=== PATIENT | male | born 1990 | race Caucasian/White ===

== ENCOUNTER 2020-09-15 06:17 | Emergency (ER) | payer OTHER, SELFPAY ==
[2020-09-15] VITALS (10 sets, daily range): BP systolic 145–167; BP diastolic 96–111; PULSE 51–89; RESP 19–37; TEMP 36.7; O2SAT 96–99
--- NOTE | 2020-09-15 06:38 | DI.RAD.S_ITS ---
PROCEDURE: XR CHEST 1V INDICATIONS: Chest pain; COVID positive TECHNIQUE: One view of the chest was acquired. COMPARISON: None. FINDINGS: Surgical changes and devices: None. Lungs and pleura: Right lung base nodular ground glass opacity. Lungs are otherwise clear. No pleural effusions or pneumothorax. Mediastinum: Mediastinal contours appear normal. Heart size is normal. Bones and chest wall: No suspicious bony lesions. Overlying soft tissues appear unremarkable. IMPRESSION: Focus of nodular groundglass opacity in the right lung base, nonspecific. This could represent developing consolidation due to viral or bacterial infection, although there are numerous other differential considerations. CTA chest is pending. Dictated by: Maciel Salinas M.D. on 09/15/2020 at 8:12 Approved by: Maciel Salinas M.D. on 09/15/2020 at 8:15
--- NOTE | 2020-09-15 06:43 | ED_ITS ---
HPI - Chest Pain <Gorge Cunningham MD - Last Filed: 09/23/20 11:00> General Chief Complaint: Chest Pain Stated Complaint: chest pain Time Seen by Provider: 09/15/20 06:27 Source: patient Mode of arrival: Wheelchair History of Present Illness HPI narrative: Patient here for complaints of chest pain starting 2:00 a.m. this morning. 4-1/2 hours ago. Has had dyspnea nausea and vomiting as well. Patient works at [employer] in [place]. Did test positive for COVID September 09. No cough cold or congestion or fever chills. No family history of coronary disease. Patient states does drink alcohol daily. Complains of substernal chest pain that does not radiate. Cannot find comfortable position. Skin is clammy. Patient awake alert responsive. He denies any illicit drug use. No allergies to medicines. Patient states only thing that is helping earlier this morning was taking a cool shower or warm shower. Father drove him here. Related Data Previous Rx's Medication Instructions Recorded trazodone 100 mg tablet 100 mg PO BEDTIME PRN #90 tab 08/05/20 gabapentin 400 mg capsule 400 mg PO TID PRN #180 cap 08/27/20 escitalopram oxalate 10 mg tablet 20 mg PO DAILY 30 Days #60 tab 09/10/20 hydroxyzine pamoate 50 mg capsule 50 mg PO TID PRN 30 Days #90 cap 09/10/20 lamotrigine 150 mg tablet 300 mg PO DAILY 30 Days #60 tab 09/10/20 lithium carbonate 300 mg capsule 300 mg PO BEDTIME 30 Days #30 cap 09/10/20 hydrocodone-acetaminophen [[place]] 1 tab PO Q4-6H PRN #7 tab 09/15/20 promethazine 25 mg AK Q6H PRN #12 ea 09/22/20 sucralfate [Carafate] 1 g PO QACHS #28 tab 09/22/20 Allergies Allergy/AdvReac Type Severity Reaction Status Date / Time No Known Drug Allergies Allergy Verified 09/22/20 04:37 Review of Systems <Gorge Cunningham MD - Last Filed: 09/23/20 11:00> Review of Systems Narrative: GENERAL: Denies chills, fatigue, malaise, fever, complains sweats. HEENT: Denies sinus pain, ear pain, sore throat, difficulty swallowing RESPIRATORY: Denies dyspnea, cough CARDIOVASCULAR: Complains chest pain, denies palpitations, edema, GASTROINTESTINAL: Complains of nausea, vomiting, denies abdominal pain, diarrhea, constipation, melena. : Denies dysuria, frequency, hematuria MUSCULOSKELETAL: denies muscle or bony pain SKIN: Denies rash, skin lesions NEUROLOGIC: Denies weakness, headache, numbness, change in speech, confusion PSYCHIATRIC: No SI or HI or hallucinations ROS Unobtainable: All systems reviewed & are unremarkable except as noted in HPI and below Patient History <Gorge Cunningham MD - Last Filed: 09/23/20 11:00> Medical History (Updated 09/22/20 @ 06:31 by Miguelito Moreland DO) Alcohol use disorder Generalized anxiety disorder (~2005) Hip pain History of panic attacks Low back pain Major depressive disorder, recurrent episode, severe Pneumonia due to 2019 novel coronavirus Family History Father Alcoholism Mother Diabetes mellitus Social History household members: family Smoking Status: Former smoker second hand exposure: Yes alcohol intake: current substance use type: marijuana (occassionally to help sleep/ingestible) Smoking Status: Former smoker alcohol intake frequency: 0-2 drinks per day Substance Use Type: does not use Exam <Gorge Cunningham MD - Last Filed: 09/23/20 11:00> Narrative Exam Narrative: GENERAL: patient appears stated age. Well-nourished, well- developed patient, appears uncomfortable, cannot find a comfortable position, not toxic not dyspneic HEAD: Normocephalic. EYES: Pupils equal round and reactive. No scleral icterus. No injection no discharge ENT: Mucous membranes moist of the mouth NECK: Trachea midline. Non tender CARDIOVASCULAR: Regular rate and rhythm without murmurs, gallops, or rubs. Chest nontender. RESPIRATORY: Clear to auscultation. Breath sounds equal bilaterally. No wheezes, rales, or rhonchi. GASTROINTESTINAL: Abdomen soft, non-tender, nondistended. EXTREMITIES: No gross deformities. BACK: Nontender without deformity or crepitance. No flank tenderness. NEURO: AOx4. Clear speech no facial droop light touch intact to bilateral face and hands and legs. Strong equal hop sorter SKIN: Skin is warm but clammy. No track billy seen on arms or feet PSYCH: Patient very anxious but is is cooperative Initial Vital Signs Initial Vital Signs: Vital Signs Temperature 98.1 F 09/15/20 06:29 Pulse Rate 89 09/15/20 06:29 Respiratory Rate 19 09/15/20 06:29 Blood Pressure 167/111 H 09/15/20 06:29 Pulse Oximetry 98 09/15/20 06:29 <Miguelito Moreland DO - Last Filed: 09/15/20 10:49> Initial Vital Signs Initial Vital Signs: Vital Signs Temperature 98.1 F 09/15/20 06:29 Pulse Rate 89 09/15/20 06:29 Respiratory Rate 19 09/15/20 06:29 Blood Pressure 167/111 H 09/15/20 06:29 Pulse Oximetry 98 09/15/20 06:29 Course <Gorge Cunningham MD - Last Filed: 09/23/20 11:00> Course Course Narrative: Sign out doctor moreland, awaiting labs and imaging to be done. meds ordered for comfort Orders Ordered: Discontinued Medications Hydromorphone HCl (Hydromorphone 0.5 Mg Inj) 0.5 mg IV NOW ONE Stop: 09/15/20 07:26 Last Admin: 09/15/20 07:40 Dose: 0.5 mg Documented by: JW Sodium Chloride (Normal Saline 0.9%) 1,000 mls @ 150 mls/hr IV CONT NOBLE Last Admin: 09/15/20 07:46 Dose: 150 mls/hr Documented by: JW Sodium Chloride (Normal Saline 0.9%) 1,000 mls @ 1,000 mls/hr IV BOLUS ONE Stop: 09/15/20 07:38 Last Infusion: 09/15/20 07:41 Dose: 0 mls/hr Documented by: Admin: 09/15/20 06:46 Dose: 1,000 mls/hr Documented by: RYANN Ketorolac Tromethamine (Ketorolac 60 Mg/2 Ml Vial) 30 mg IV NOW ONE Stop: 09/15/20 09:53 Last Admin: 09/15/20 10:26 Dose: 30 mg Documented by: JW Lorazepam (Lorazepam 2 Mg/Ml Inj) 0.5 mg IV NOW ONE Stop: 09/15/20 06:39 Last Admin: 09/15/20 06:47 Dose: 0.5 mg Documented by: RYANN Morphine Sulfate (Morphine 4 Mg/Ml Inj) 4 mg IV NOW ONE Stop: 09/15/20 06:39 Last Admin: 09/15/20 06:47 Dose: 4 mg Documented by: RYANN Ondansetron HCl (Ondansetron 4 Mg/2 Ml Inj) 4 mg IV NOW ONE Stop: 09/15/20 06:39 Last Admin: 09/15/20 06:47 Dose: 4 mg Documented by: RYANN Ondansetron HCl (Ondansetron 4 Mg/2 Ml Inj) 4 mg IV NOW ONE Stop: 09/15/20 07:26 Last Admin: 09/15/20 07:41 Dose: 4 mg Documented by: JW Vital Signs Vital signs: Vital Signs - 8 hr 09/15/20 06:29 09/15/20 07:32 09/15/20 08:08 Temperature 98.1 F Pulse Rate 89 63 56 L Respiratory Rate 19 Blood Pressure 167/111 H Pulse Oximetry 98 97 99 09/15/20 08:30 09/15/20 08:48 09/15/20 09:00 Temperature Pulse Rate 51 L 55 L 57 L Respiratory Rate 25 H 23 Blood Pressure 151/101 H Pulse Oximetry 96 97 96 09/15/20 09:30 09/15/20 10:00 09/15/20 10:12 Temperature Pulse Rate 61 63 59 L Respiratory Rate 26 H 28 H 37 H Blood Pressure Pulse Oximetry 99 09/15/20 10:29 Temperature Pulse Rate Respiratory Rate Blood Pressure 145/96 H Pulse Oximetry <Miguelito Moreland DO - Last Filed: 09/15/20 10:49> Orders Ordered: Discontinued Medications Hydromorphone HCl (Hydromorphone 0.5 Mg Inj) 0.5 mg IV NOW ONE Stop: 09/15/20 07:26 Last Admin: 09/15/20 07:40 Dose: 0.5 mg Documented by: JW Sodium Chloride (Normal Saline 0.9%) 1,000 mls @ 150 mls/hr IV CONT NOBLE Last Admin: 09/15/20 07:46 Dose: 150 mls/hr Documented by: JW Sodium Chloride (Normal Saline 0.9%) 1,000 mls @ 1,000 mls/hr IV BOLUS ONE Stop: 09/15/20 07:38 Last Infusion: 09/15/20 07:41 Dose: 0 mls/hr Documented by: Admin: 09/15/20 06:46 Dose: 1,000 mls/hr Documented by: RYANN Ketorolac Tromethamine (Ketorolac 60 Mg/2 Ml Vial) 30 mg IV NOW ONE Stop: 09/15/20 09:53 Last Admin: 09/15/20 10:26 Dose: 30 mg Documented by: JW Lorazepam (Lorazepam 2 Mg/Ml Inj) 0.5 mg IV NOW ONE Stop: 09/15/20 06:39 Last Admin: 09/15/20 06:47 Dose: 0.5 mg Documented by: RYANN Morphine Sulfate (Morphine 4 Mg/Ml Inj) 4 mg IV NOW ONE Stop: 09/15/20 06:39 Last Admin: 09/15/20 06:47 Dose: 4 mg Documented by: RYANN Ondansetron HCl (Ondansetron 4 Mg/2 Ml Inj) 4 mg IV NOW ONE Stop: 09/15/20 06:39 Last Admin: 09/15/20 06:47 Dose: 4 mg Documented by: RYANN Ondansetron HCl (Ondansetron 4 Mg/2 Ml Inj) 4 mg IV NOW ONE Stop: 09/15/20 07:26 Last Admin: 09/15/20 07:41 Dose: 4 mg Documented by: JW Vital Signs Vital signs: Vital Signs - 8 hr 09/15/20 06:29 09/15/20 07:32 09/15/20 08:08 Temperature 98.1 F Pulse Rate 89 63 56 L Respiratory Rate 19 Blood Pressure 167/111 H Pulse Oximetry 98 97 99 09/15/20 08:30 09/15/20 08:48 09/15/20 09:00 Temperature Pulse Rate 51 L 55 L 57 L Respiratory Rate 25 H 23 Blood Pressure 151/101 H Pulse Oximetry 96 97 96 09/15/20 09:30 09/15/20 10:00 09/15/20 10:12 Temperature Pulse Rate 61 63 59 L Respiratory Rate 26 H 28 H 37 H Blood Pressure Pulse Oximetry 99 09/15/20 10:29 Temperature Pulse Rate Respiratory Rate Blood Pressure 145/96 H Pulse Oximetry MDM - Chest Pain <Gorge Cunningham MD - Last Filed: 09/23/20 11:00> Lab Data Result diagrams: 09/15/20 06:47 09/15/20 06:47 Labs: Lab Results 09/15/20 09/15/20 09/15/20 Range/Units 06:47 06:47 06:47 WBC 7.8 (4.5-11.0) X10^3/uL RBC 5.43 (4.5-5.9) X10^6/uL Hgb 16.4 (13.5-17.5) g/dL Hct 46.8 (41-53) % MCV 86.2 (80-100) fL MCH 30.2 (26-34) PG MCHC 35.0 (30-36) % RDW 12.9 (11.6-14.8) % Plt Count 264 (150-400) X10^3/uL Neut % (Auto) 58.9 (50-75) % Lymph % (Auto) 32.4 (25-40) % Craig % (Auto) 7.7 (3-14) % Eos % (Auto) 0.3 L (2-4) % Baso % (Auto) 0.7 (0-2) % Neut # (Auto) 4600 (3345-6520) /uL Lymph # (Auto) 2500 (5284-2291) /uL Craig # (Auto) 600 (0-900) /uL Eos # (Auto) 0 (0-450) /uL Baso # (Auto) 100 (0-100) /uL ESR (0-15) MM/HR PT 11.2 (10.1-12.7) SECONDS INR 1.0 (0.9-1.3) APTT 28 (26.4-36.2) SECONDS Sodium 139 (137-145) mmol/L Potassium 4.0 (3.4-5.1) mmol/L Chloride 100 (98-107) mmol/L Carbon Dioxide 30 (22-32) mmol/L BUN 15 (9-20) mg/dL Creatinine 0.71 (0.66-1.25) mg/dL Estimated GFR > 60.0 (>60) mL/min BUN/Creatinine Ratio 21.1 (6-22) Glucose 147 H (70-100) mg/dL Lactate (0.7-2.1) mmol/L Calcium 10.2 (8.4-10.2) mg/dL Total Bilirubin 0.5 (0.2-1.3) mg/dL AST 56 (17-59) IU/L ALT 31 (<50) IU/L Alkaline Phosphatase 92 (38-126) U/L Lactate Dehydrogenase (313-618) U/L Total Creatine Kinase 90 (55-170) U/L CK-MB (CK-2) TNP CK-MB (CK-2) Rel Index TNP Troponin I < 0.012 (0.01-0.034) ng/mL C-Reactive Protein (<1.0) mg/dL Total Protein 8.4 H (6.3-8.2) g/dL Albumin 5.0 (3.5-5.0) g/dL Globulin 3.4 (1.7-4.1) g/dL Albumin/Globulin Ratio 1.5 (1.0-2.8) Lipase 293 (23-300) U/L Procalcitonin (<0.5) ng/mL U Opiates 300ng/mL cut (Negative) Ur Oxycodone Screen (Negative) Urine Methadone Screen (Negative) Ur Barbiturates Screen (Negative) U Tricyclic Antidepress (Negative) Ur Phencyclidine Scrn (Negative) Ur Amphetamines Screen (Negative) U Methamphetamines Scrn (Negative) Ur MDMA Scrn (Ecstasy) (Negative) U Benzodiazepines Scrn (Negative) Urine Cocaine Screen (Negative) U Marijuana (THC) Screen (Negative) Ethyl Alcohol ( - 10) mg/dL COVID-19 PCR (Negative) 09/15/20 09/15/20 09/15/20 Range/Units 06:47 06:47 06:47 WBC (4.5-11.0) X10^3/uL RBC (4.5-5.9) X10^6/uL Hgb (13.5-17.5) g/dL Hct (41-53) % MCV (80-100) fL MCH (26-34) PG MCHC (30-36) % RDW (11.6-14.8) % Plt Count (150-400) X10^3/uL Neut % (Auto) (50-75) % Lymph % (Auto) (25-40) % Craig % (Auto) (3-14) % Eos % (Auto) (2-4) % Baso % (Auto) (0-2) % Neut # (Auto) (2313-3006) /uL Lymph # (Auto) (7037-2476) /uL Craig # (Auto) (0-900) /uL Eos # (Auto) (0-450) /uL Baso # (Auto) (0-100) /uL ESR (0-15) MM/HR PT (10.1-12.7) SECONDS INR (0.9-1.3) APTT (26.4-36.2) SECONDS Sodium (137-145) mmol/L Potassium (3.4-5.1) mmol/L Chloride (98-107) mmol/L Carbon Dioxide (22-32) mmol/L BUN (9-20) mg/dL Creatinine (0.66-1.25) mg/dL Estimated GFR (>60) mL/min BUN/Creatinine Ratio (6-22) Glucose (70-100) mg/dL Lactate 3.1 H (0.7-2.1) mmol/L Calcium (8.4-10.2) mg/dL Total Bilirubin (0.2-1.3) mg/dL AST (17-59) IU/L ALT (<50) IU/L Alkaline Phosphatase (38-126) U/L Lactate Dehydrogenase (313-618) U/L Total Creatine Kinase (55-170) U/L CK-MB (CK-2) CK-MB (CK-2) Rel Index Troponin I (0.01-0.034) ng/mL C-Reactive Protein (<1.0) mg/dL Total Protein (6.3-8.2) g/dL Albumin (3.5-5.0) g/dL Globulin (1.7-4.1) g/dL Albumin/Globulin Ratio (1.0-2.8) Lipase (23-300) U/L Procalcitonin < 0.05 (<0.5) ng/mL U Opiates 300ng/mL cut (Negative) Ur Oxycodone Screen (Negative) Urine Methadone Screen (Negative) Ur Barbiturates Screen (Negative) U Tricyclic Antidepress (Negative) Ur Phencyclidine Scrn (Negative) Ur Amphetamines Screen (Negative) U Methamphetamines Scrn (Negative) Ur MDMA Scrn (Ecstasy) (Negative) U Benzodiazepines Scrn (Negative) Urine Cocaine Screen (Negative) U Marijuana (THC) Screen (Negative) Ethyl Alcohol < 10 ( - 10) mg/dL COVID-19 PCR (Negative) 09/15/20 09/15/20 09/15/20 Range/Units 06:47 06:47 06:47 WBC (4.5-11.0) X10^3/uL RBC (4.5-5.9) X10^6/uL Hgb (13.5-17.5) g/dL Hct (41-53) % MCV (80-100) fL MCH (26-34) PG MCHC (30-36) % RDW (11.6-14.8) % Plt Count (150-400) X10^3/uL Neut % (Auto) (50-75) % Lymph % (Auto) (25-40) % Craig % (Auto) (3-14) % Eos % (Auto) (2-4) % Baso % (Auto) (0-2) % Neut # (Auto) (6941-1801) /uL Lymph # (Auto) (1683-9087) /uL Craig # (Auto) (0-900) /uL Eos # (Auto) (0-450) /uL Baso # (Auto) (0-100) /uL ESR 2 (0-15) MM/HR PT (10.1-12.7) SECONDS INR (0.9-1.3) APTT (26.4-36.2) SECONDS Sodium (137-145) mmol/L Potassium (3.4-5.1) mmol/L Chloride (98-107) mmol/L Carbon Dioxide (22-32) mmol/L BUN (9-20) mg/dL Creatinine (0.66-1.25) mg/dL Estimated GFR (>60) mL/min BUN/Creatinine Ratio (6-22) Glucose (70-100) mg/dL Lactate (0.7-2.1) mmol/L Calcium (8.4-10.2) mg/dL Total Bilirubin (0.2-1.3) mg/dL AST (17-59) IU/L ALT (<50) IU/L Alkaline Phosphatase (38-126) U/L Lactate Dehydrogenase 651 H (313-618) U/L Total Creatine Kinase (55-170) U/L CK-MB (CK-2) CK-MB (CK-2) Rel Index Troponin I (0.01-0.034) ng/mL C-Reactive Protein 0.8 (<1.0) mg/dL Total Protein (6.3-8.2) g/dL Albumin (3.5-5.0) g/dL Globulin (1.7-4.1) g/dL Albumin/Globulin Ratio (1.0-2.8) Lipase (23-300) U/L Procalcitonin (<0.5) ng/mL U Opiates 300ng/mL cut (Negative) Ur Oxycodone Screen (Negative) Urine Methadone Screen (Negative) Ur Barbiturates Screen (Negative) U Tricyclic Antidepress (Negative) Ur Phencyclidine Scrn (Negative) Ur Amphetamines Screen (Negative) U Methamphetamines Scrn (Negative) Ur MDMA Scrn (Ecstasy) (Negative) U Benzodiazepines Scrn (Negative) Urine Cocaine Screen (Negative) U Marijuana (THC) Screen (Negative) Ethyl Alcohol ( - 10) mg/dL COVID-19 PCR (Negative) 09/15/20 09/15/20 09/15/20 Range/Units 07:10 08:27 09:30 WBC (4.5-11.0) X10^3/uL RBC (4.5-5.9) X10^6/uL Hgb (13.5-17.5) g/dL Hct (41-53) % MCV (80-100) fL MCH (26-34) PG MCHC (30-36) % RDW (11.6-14.8) % Plt Count (150-400) X10^3/uL Neut % (Auto) (50-75) % Lymph % (Auto) (25-40) % Craig % (Auto) (3-14) % Eos % (Auto) (2-4) % Baso % (Auto) (0-2) % Neut # (Auto) (2868-8325) /uL Lymph # (Auto) (1800-4437) /uL Craig # (Auto) (0-900) /uL Eos # (Auto) (0-450) /uL Baso # (Auto) (0-100) /uL ESR (0-15) MM/HR PT (10.1-12.7) SECONDS INR (0.9-1.3) APTT (26.4-36.2) SECONDS Sodium (137-145) mmol/L Potassium (3.4-5.1) mmol/L Chloride (98-107) mmol/L Carbon Dioxide (22-32) mmol/L BUN (9-20) mg/dL Creatinine (0.66-1.25) mg/dL Estimated GFR (>60) mL/min BUN/Creatinine Ratio (6-22) Glucose (70-100) mg/dL Lactate 1.9 (0.7-2.1) mmol/L Calcium (8.4-10.2) mg/dL Total Bilirubin (0.2-1.3) mg/dL AST (17-59) IU/L ALT (<50) IU/L Alkaline Phosphatase (38-126) U/L Lactate Dehydrogenase (313-618) U/L Total Creatine Kinase (55-170) U/L CK-MB (CK-2) CK-MB (CK-2) Rel Index Troponin I (0.01-0.034) ng/mL C-Reactive Protein (<1.0) mg/dL Total Protein (6.3-8.2) g/dL Albumin (3.5-5.0) g/dL Globulin (1.7-4.1) g/dL Albumin/Globulin Ratio (1.0-2.8) Lipase (23-300) U/L Procalcitonin (<0.5) ng/mL U Opiates 300ng/mL cut Positive H (Negative) Ur Oxycodone Screen Negative (Negative) Urine Methadone Screen Negative (Negative) Ur Barbiturates Screen Negative (Negative) U Tricyclic Antidepress Negative (Negative) Ur Phencyclidine Scrn Negative (Negative) Ur Amphetamines Screen Negative (Negative) U Methamphetamines Scrn Negative (Negative) Ur MDMA Scrn (Ecstasy) Negative (Negative) U Benzodiazepines Scrn Negative (Negative) Urine Cocaine Screen Negative (Negative) U Marijuana (THC) Screen Positive H (Negative) Ethyl Alcohol ( - 10) mg/dL COVID-19 PCR Positive H (Negative) 09/15/20 Range/Units 09:30 WBC (4.5-11.0) X10^3/uL RBC (4.5-5.9) X10^6/uL Hgb (13.5-17.5) g/dL Hct (41-53) % MCV (80-100) fL MCH (26-34) PG MCHC (30-36) % RDW (11.6-14.8) % Plt Count (150-400) X10^3/uL Neut % (Auto) (50-75) % Lymph % (Auto) (25-40) % Craig % (Auto) (3-14) % Eos % (Auto) (2-4) % Baso % (Auto) (0-2) % Neut # (Auto) (4258-0733) /uL Lymph # (Auto) (9431-7251) /uL Craig # (Auto) (0-900) /uL Eos # (Auto) (0-450) /uL Baso # (Auto) (0-100) /uL ESR (0-15) MM/HR PT (10.1-12.7) SECONDS INR (0.9-1.3) APTT (26.4-36.2) SECONDS Sodium (137-145) mmol/L Potassium (3.4-5.1) mmol/L Chloride (98-107) mmol/L Carbon Dioxide (22-32) mmol/L BUN (9-20) mg/dL Creatinine (0.66-1.25) mg/dL Estimated GFR (>60) mL/min BUN/Creatinine Ratio (6-22) Glucose (70-100) mg/dL Lactate (0.7-2.1) mmol/L Calcium (8.4-10.2) mg/dL Total Bilirubin (0.2-1.3) mg/dL AST (17-59) IU/L ALT (<50) IU/L Alkaline Phosphatase (38-126) U/L Lactate Dehydrogenase (313-618) U/L Total Creatine Kinase 79 (55-170) U/L CK-MB (CK-2) TNP CK-MB (CK-2) Rel Index TNP Troponin I < 0.012 (0.01-0.034) ng/mL C-Reactive Protein (<1.0) mg/dL Total Protein (6.3-8.2) g/dL Albumin (3.5-5.0) g/dL Globulin (1.7-4.1) g/dL Albumin/Globulin Ratio (1.0-2.8) Lipase (23-300) U/L Procalcitonin (<0.5) ng/mL U Opiates 300ng/mL cut (Negative) Ur Oxycodone Screen (Negative) Urine Methadone Screen (Negative) Ur Barbiturates Screen (Negative) U Tricyclic Antidepress (Negative) Ur Phencyclidine Scrn (Negative) Ur Amphetamines Screen (Negative) U Methamphetamines Scrn (Negative) Ur MDMA Scrn (Ecstasy) (Negative) U Benzodiazepines Scrn (Negative) Urine Cocaine Screen (Negative) U Marijuana (THC) Screen (Negative) Ethyl Alcohol ( - 10) mg/dL COVID-19 PCR (Negative) <Miguelito Moreland, DO - Last Filed: 09/15/20 10:49> Lab Data Attestation: I reviewed the patient's lab results. Labs: Lab Results 09/15/20 09/15/20 09/15/20 Range/Units 06:47 06:47 06:47 WBC 7.8 (4.5-11.0) X10^3/uL RBC 5.43 (4.5-5.9) X10^6/uL Hgb 16.4 (13.5-17.5) g/dL Hct 46.8 (41-53) % MCV 86.2 (80-100) fL MCH 30.2 (26-34) PG MCHC 35.0 (30-36) % RDW 12.9 (11.6-14.8) % Plt Count 264 (150-400) X10^3/uL Neut % (Auto) 58.9 (50-75) % Lymph % (Auto) 32.4 (25-40) % Craig % (Auto) 7.7 (3-14) % Eos % (Auto) 0.3 L (2-4) % Baso % (Auto) 0.7 (0-2) % Neut # (Auto) 4600 (7195-6903) /uL Lymph # (Auto) 2500 (2016-4783) /uL Craig # (Auto) 600 (0-900) /uL Eos # (Auto) 0 (0-450) /uL Baso # (Auto) 100 (0-100) /uL ESR (0-15) MM/HR PT 11.2 (10.1-12.7) SECONDS INR 1.0 (0.9-1.3) APTT 28 (26.4-36.2) SECONDS Sodium 139 (137-145) mmol/L Potassium 4.0 (3.4-5.1) mmol/L Chloride 100 (98-107) mmol/L Carbon Dioxide 30 (22-32) mmol/L BUN 15 (9-20) mg/dL Creatinine 0.71 (0.66-1.25) mg/dL Estimated GFR > 60.0 (>60) mL/min BUN/Creatinine Ratio 21.1 (6-22) Glucose 147 H (70-100) mg/dL Lactate (0.7-2.1) mmol/L Calcium 10.2 (8.4-10.2) mg/dL Total Bilirubin 0.5 (0.2-1.3) mg/dL AST 56 (17-59) IU/L ALT 31 (<50) IU/L Alkaline Phosphatase 92 (38-126) U/L Lactate Dehydrogenase (313-618) U/L Total Creatine Kinase 90 (55-170) U/L CK-MB (CK-2) TNP CK-MB (CK-2) Rel Index TNP Troponin I < 0.012 (0.01-0.034) ng/mL C-Reactive Protein (<1.0) mg/dL Total Protein 8.4 H (6.3-8.2) g/dL Albumin 5.0 (3.5-5.0) g/dL Globulin 3.4 (1.7-4.1) g/dL Albumin/Globulin Ratio 1.5 (1.0-2.8) Lipase 293 (23-300) U/L Procalcitonin (<0.5) ng/mL U Opiates 300ng/mL cut (Negative) Ur Oxycodone Screen (Negative) Urine Methadone Screen (Negative) Ur Barbiturates Screen (Negative) U Tricyclic Antidepress (Negative) Ur Phencyclidine Scrn (Negative) Ur Amphetamines Screen (Negative) U Methamphetamines Scrn (Negative) Ur MDMA Scrn (Ecstasy) (Negative) U Benzodiazepines Scrn (Negative) Urine Cocaine Screen (Negative) U Marijuana (THC) Screen (Negative) Ethyl Alcohol ( - 10) mg/dL COVID-19 PCR (Negative) 09/15/20 09/15/20 09/15/20 Range/Units 06:47 06:47 06:47 WBC (4.5-11.0) X10^3/uL RBC (4.5-5.9) X10^6/uL Hgb (13.5-17.5) g/dL Hct (41-53) % MCV (80-100) fL MCH (26-34) PG MCHC (30-36) % RDW (11.6-14.8) % Plt Count (150-400) X10^3/uL Neut % (Auto) (50-75) % Lymph % (Auto) (25-40) % Craig % (Auto) (3-14) % Eos % (Auto) (2-4) % Baso % (Auto) (0-2) % Neut # (Auto) (5757-7000) /uL Lymph # (Auto) (2865-8958) /uL Craig # (Auto) (0-900) /uL Eos # (Auto) (0-450) /uL Baso # (Auto) (0-100) /uL ESR (0-15) MM/HR PT (10.1-12.7) SECONDS INR (0.9-1.3) APTT (26.4-36.2) SECONDS Sodium (137-145) mmol/L Potassium (3.4-5.1) mmol/L Chloride (98-107) mmol/L Carbon Dioxide (22-32) mmol/L BUN (9-20) mg/dL Creatinine (0.66-1.25) mg/dL Estimated GFR (>60) mL/min BUN/Creatinine Ratio (6-22) Glucose (70-100) mg/dL Lactate 3.1 H (0.7-2.1) mmol/L Calcium (8.4-10.2) mg/dL Total Bilirubin (0.2-1.3) mg/dL AST (17-59) IU/L ALT (<50) IU/L Alkaline Phosphatase (38-126) U/L Lactate Dehydrogenase (313-618) U/L Total Creatine Kinase (55-170) U/L CK-MB (CK-2) CK-MB (CK-2) Rel Index Troponin I (0.01-0.034) ng/mL C-Reactive Protein (<1.0) mg/dL Total Protein (6.3-8.2) g/dL Albumin (3.5-5.0) g/dL Globulin (1.7-4.1) g/dL Albumin/Globulin Ratio (1.0-2.8) Lipase (23-300) U/L Procalcitonin < 0.05 (<0.5) ng/mL U Opiates 300ng/mL cut (Negative) Ur Oxycodone Screen (Negative) Urine Methadone Screen (Negative) Ur Barbiturates Screen (Negative) U Tricyclic Antidepress (Negative) Ur Phencyclidine Scrn (Negative) Ur Amphetamines Screen (Negative) U Methamphetamines Scrn (Negative) Ur MDMA Scrn (Ecstasy) (Negative) U Benzodiazepines Scrn (Negative) Urine Cocaine Screen (Negative) U Marijuana (THC) Screen (Negative) Ethyl Alcohol < 10 ( - 10) mg/dL COVID-19 PCR (Negative) 09/15/20 09/15/20 09/15/20 Range/Units 06:47 06:47 06:47 WBC (4.5-11.0) X10^3/uL RBC (4.5-5.9) X10^6/uL Hgb (13.5-17.5) g/dL Hct (41-53) % MCV (80-100) fL MCH (26-34) PG MCHC (30-36) % RDW (11.6-14.8) % Plt Count (150-400) X10^3/uL Neut % (Auto) (50-75) % Lymph % (Auto) (25-40) % Craig % (Auto) (3-14) % Eos % (Auto) (2-4) % Baso % (Auto) (0-2) % Neut # (Auto) (8938-5754) /uL Lymph # (Auto) (7277-7451) /uL Craig # (Auto) (0-900) /uL Eos # (Auto) (0-450) /uL Baso # (Auto) (0-100) /uL ESR 2 (0-15) MM/HR PT (10.1-12.7) SECONDS INR (0.9-1.3) APTT (26.4-36.2) SECONDS Sodium (137-145) mmol/L Potassium (3.4-5.1) mmol/L Chloride (98-107) mmol/L Carbon Dioxide (22-32) mmol/L BUN (9-20) mg/dL Creatinine (0.66-1.25) mg/dL Estimated GFR (>60) mL/min BUN/Creatinine Ratio (6-22) Glucose (70-100) mg/dL Lactate (0.7-2.1) mmol/L Calcium (8.4-10.2) mg/dL Total Bilirubin (0.2-1.3) mg/dL AST (17-59) IU/L ALT (<50) IU/L Alkaline Phosphatase (38-126) U/L Lactate Dehydrogenase 651 H (313-618) U/L Total Creatine Kinase (55-170) U/L CK-MB (CK-2) CK-MB (CK-2) Rel Index Troponin I (0.01-0.034) ng/mL C-Reactive Protein 0.8 (<1.0) mg/dL Total Protein (6.3-8.2) g/dL Albumin (3.5-5.0) g/dL Globulin (1.7-4.1) g/dL Albumin/Globulin Ratio (1.0-2.8) Lipase (23-300) U/L Procalcitonin (<0.5) ng/mL U Opiates 300ng/mL cut (Negative) Ur Oxycodone Screen (Negative) Urine Methadone Screen (Negative) Ur Barbiturates Screen (Negative) U Tricyclic Antidepress (Negative) Ur Phencyclidine Scrn (Negative) Ur Amphetamines Screen (Negative) U Methamphetamines Scrn (Negative) Ur MDMA Scrn (Ecstasy) (Negative) U Benzodiazepines Scrn (Negative) Urine Cocaine Screen (Negative) U Marijuana (THC) Screen (Negative) Ethyl Alcohol ( - 10) mg/dL COVID-19 PCR (Negative) 09/15/20 09/15/20 09/15/20 Range/Units 07:10 08:27 09:30 WBC (4.5-11.0) X10^3/uL RBC (4.5-5.9) X10^6/uL Hgb (13.5-17.5) g/dL Hct (41-53) % MCV (80-100) fL MCH (26-34) PG MCHC (30-36) % RDW (11.6-14.8) % Plt Count (150-400) X10^3/uL Neut % (Auto) (50-75) % Lymph % (Auto) (25-40) % Craig % (Auto) (3-14) % Eos % (Auto) (2-4) % Baso % (Auto) (0-2) % Neut # (Auto) (4404-1516) /uL Lymph # (Auto) (0259-9979) /uL Craig # (Auto) (0-900) /uL Eos # (Auto) (0-450) /uL Baso # (Auto) (0-100) /uL ESR (0-15) MM/HR PT (10.1-12.7) SECONDS INR (0.9-1.3) APTT (26.4-36.2) SECONDS Sodium (137-145) mmol/L Potassium (3.4-5.1) mmol/L Chloride (98-107) mmol/L Carbon Dioxide (22-32) mmol/L BUN (9-20) mg/dL Creatinine (0.66-1.25) mg/dL Estimated GFR (>60) mL/min BUN/Creatinine Ratio (6-22) Glucose (70-100) mg/dL Lactate 1.9 (0.7-2.1) mmol/L Calcium (8.4-10.2) mg/dL Total Bilirubin (0.2-1.3) mg/dL AST (17-59) IU/L ALT (<50) IU/L Alkaline Phosphatase (38-126) U/L Lactate Dehydrogenase (313-618) U/L Total Creatine Kinase (55-170) U/L CK-MB (CK-2) CK-MB (CK-2) Rel Index Troponin I (0.01-0.034) ng/mL C-Reactive Protein (<1.0) mg/dL Total Protein (6.3-8.2) g/dL Albumin (3.5-5.0) g/dL Globulin (1.7-4.1) g/dL Albumin/Globulin Ratio (1.0-2.8) Lipase (23-300) U/L Procalcitonin (<0.5) ng/mL U Opiates 300ng/mL cut Positive H (Negative) Ur Oxycodone Screen Negative (Negative) Urine Methadone Screen Negative (Negative) Ur Barbiturates Screen Negative (Negative) U Tricyclic Antidepress Negative (Negative) Ur Phencyclidine Scrn Negative (Negative) Ur Amphetamines Screen Negative (Negative) U Methamphetamines Scrn Negative (Negative) Ur MDMA Scrn (Ecstasy) Negative (Negative) U Benzodiazepines Scrn Negative (Negative) Urine Cocaine Screen Negative (Negative) U Marijuana (THC) Screen Positive H (Negative) Ethyl Alcohol ( - 10) mg/dL COVID-19 PCR Positive H (Negative) 09/15/20 Range/Units 09:30 WBC (4.5-11.0) X10^3/uL RBC (4.5-5.9) X10^6/uL Hgb (13.5-17.5) g/dL Hct (41-53) % MCV (80-100) fL MCH (26-34) PG MCHC (30-36) % RDW (11.6-14.8) % Plt Count (150-400) X10^3/uL Neut % (Auto) (50-75) % Lymph % (Auto) (25-40) % Craig % (Auto) (3-14) % Eos % (Auto) (2-4) % Baso % (Auto) (0-2) % Neut # (Auto) (3934-8891) /uL Lymph # (Auto) (7493-5391) /uL Craig # (Auto) (0-900) /uL Eos # (Auto) (0-450) /uL Baso # (Auto) (0-100) /uL ESR (0-15) MM/HR PT (10.1-12.7) SECONDS INR (0.9-1.3) APTT (26.4-36.2) SECONDS Sodium (137-145) mmol/L Potassium (3.4-5.1) mmol/L Chloride (98-107) mmol/L Carbon Dioxide (22-32) mmol/L BUN (9-20) mg/dL Creatinine (0.66-1.25) mg/dL Estimated GFR (>60) mL/min BUN/Creatinine Ratio (6-22) Glucose (70-100) mg/dL Lactate (0.7-2.1) mmol/L Calcium (8.4-10.2) mg/dL Total Bilirubin (0.2-1.3) mg/dL AST (17-59) IU/L ALT (<50) IU/L Alkaline Phosphatase (38-126) U/L Lactate Dehydrogenase (313-618) U/L Total Creatine Kinase 79 (55-170) U/L CK-MB (CK-2) TNP CK-MB (CK-2) Rel Index TNP Troponin I < 0.012 (0.01-0.034) ng/mL C-Reactive Protein (<1.0) mg/dL Total Protein (6.3-8.2) g/dL Albumin (3.5-5.0) g/dL Globulin (1.7-4.1) g/dL Albumin/Globulin Ratio (1.0-2.8) Lipase (23-300) U/L Procalcitonin (<0.5) ng/mL U Opiates 300ng/mL cut (Negative) Ur Oxycodone Screen (Negative) Urine Methadone Screen (Negative) Ur Barbiturates Screen (Negative) U Tricyclic Antidepress (Negative) Ur Phencyclidine Scrn (Negative) Ur Amphetamines Screen (Negative) U Methamphetamines Scrn (Negative) Ur MDMA Scrn (Ecstasy) (Negative) U Benzodiazepines Scrn (Negative) Urine Cocaine Screen (Negative) U Marijuana (THC) Screen (Negative) Ethyl Alcohol ( - 10) mg/dL COVID-19 PCR (Negative) Imaging Data Chest x-ray: Radiologist's Impression: [address] [address] XRay Report Signed Patient: Heraclio Khan CMR#: [id number] : 1990Acct:[id number] Age/Sex: 30 / MDate of Service: 09/15/20 Loc: ED Accession Number: [id number] Procedure: XR chest 1V Ordering Provider: Gorge Cunningham MD PROCEDURE: XR CHEST 1V INDICATIONS: Chest pain; COVID positive TECHNIQUE: One view of the chest was acquired. COMPARISON: None. FINDINGS: Surgical changes and devices: None. Lungs and pleura: Right lung base nodular ground glass opacity. Lungs are otherwise clear. No pleural effusions or pneumothorax. Mediastinum: Mediastinal contours appear normal. Heart size is normal. Bones and chest wall: No suspicious bony lesions. Overlying soft tissues appear unremarkable. IMPRESSION: Focus of nodular groundglass opacity in the right lung base, nonspecific. This could represent developing consolidation due to viral or bacterial infection, although there are numerous other differential considerations. CTA chest is pending. Dictated by: Maciel Salinas M.D. on 09/15/2020 at 8:12 Approved by: Maciel Salinas M.D. on 09/15/2020 at 8:15 CT scan - chest: Radiologist's Impression: [place] [address] CT Scan Report Signed Patient: Heraclio Khan CMR#: [id number] : 1990Acct:[id number] Age/Sex: 30 / MDate of Service: 09/15/20 Loc: ED Accession Number: [id number] Procedure: CT angio chest PE protocol Ordering Provider: Miguelito Moreland D.O. PROCEDURE: CT ANGIO CHEST PE PROTOCOL INDICATIONS: Chest pain, shortness of breath, tachycardia TECHNIQUE: After the administration of intravenous contrast, 2 mm thick sections acquired from the pulmonary apices to the posterior costophrenic angles. 3-dimensional maximum intensity projection (MIP) coronal and sagittal reformats were then acquired through the thorax. For radiation dose reduction, the following was used: automated exposure control, adjustment of mA and/or kV according to patient size. COMPARISON: [facility], CR, XR CHEST 2 VIEWS, 09/09/2020, 13:57. [facility], CR, XR CHEST 1V, 09/15/2020, 6:46. FINDINGS: Image quality: Excellent. Pulmonary arteries: Pulmonary arteries are normal in size, and demonstrate no intraluminal filling defects to suggest central pulmonary embolism. Lungs and pleura: There are bilateral nodular and ground-glass infiltrates, predominantly involving lower lobes consistent with pneumonia. No pleural effusions or pneumothorax. Central and peripheral airways are patent. Mediastinum: Heart size is normal. Trace pericardial effusion. There is a 1.7 cm right hilar lymph node. No enlarged mediastinal lymph nodes. Thoracic aorta is normal in caliber and enhancement. Esophagus is normal in caliber. There is a small hiatal hernia. Bones and chest wall: No suspicious bony lesions. Ribs and thoracic spine appear intact throughout. Thyroid gland is normal. No axillary or supraclavicular adenopathy. Abdomen: Visualized upper abdominal solid organs appear normal in the early arterial phase of enhancement. IMPRESSION: 1. No evidence for pulmonary embolism. 2. Bilateral nodular and ground-glass infiltrates consistent with pneumonia, predominantly involving the lower lobes. 3. Mild right hilar lymphadenopathy, most likely reactive. 4. Small hiatal hernia. Dictated by: Renzo Yen M.D. on 09/15/2020 at 8:36 Approved by: Renzo Yen M.D. on 09/15/2020 at 8:45 ECG Data Attestation: I personally reviewed and interpreted this ECG as follows: Prior ECG tracings: not available for review Interpretation: Initial EKG Sinus rhythm Normal axis Normal QRS Normal QTC Early repolarization Repeat EKG Unchanged from prior MDM Narrative Medical decision making narrative: Patient is not hypoxic, not tachypneic, troponins negative x2. EKG is unchanged in appears to be early refill. Does not have pulmonary embolism. Has known coronavirus that does fit with his CT of his chest. No indication for antibiotics. Patient does have nausea medicine at home. He also has reflux medicine at home. He states that he is still having pain in his chest although does not appear to be cardiac related. This could potentially be GI. Will send him home with pain medication. He was instructed to continue to take the omeprazole that he has and also the Zofran. He was given return precautions. No indication for admission to the hospital. He expressed understanding and agreement. Discharge Plan Departure Patient Disposition: Home Clinical Impression: Pneumonia due to 2019 novel coronavirus, Atypical chest pain Instructions: DI for COVID-19 (Suspected or Confirmed ), Coronavirus Disease 2019 Activity Restrictions/Additional Instructions: Recommend that you continue to take your reflux medication and nausea medication. You do have COVID-19 so you need to stay home and avoid others and wash your hands and wear mask per the CDC guidelines. You can take the pain medication as needed. Return to the emergency department for any new or worsening symptoms Prescriptions: New hydrocodone-acetaminophen [[place]] 5-325 mg tablet 1 tab PO Q4-6H PRN (Reason: pain) Qty: 7 RF: 0 No Action trazodone 100 mg tablet 100 mg PO BEDTIME PRN (Reason: sleep) Qty: 90 RF: 1 escitalopram oxalate 10 mg tablet 20 mg PO DAILY 30 Days Qty: 60 RF: 1 lamotrigine 150 mg tablet 300 mg PO DAILY 30 Days Qty: 60 RF: 1 hydroxyzine pamoate 50 mg capsule 50 mg PO TID PRN (Reason: anxiety) 30 Days Qty: 90 RF: 0 lithium carbonate 300 mg capsule 300 mg PO BEDTIME 30 Days Qty: 30 RF: 0 gabapentin 400 mg capsule 400 mg PO TID PRN (Reason: anxiety sleep) Qty: 180 RF: 0 promethazine 25 mg suppository 25 mg AK Q6H PRN (Reason: nausea and vomiting) Qty: 12 RF: 0 sucralfate [Carafate] 1 gram tablet 1 g PO QACHS Qty: 28 RF: 0 Referrals: Marty Doyle ARNP [Primary Care Provider] -
[2020-09-15] MEDS: SODIUM CHLORIDE 0.9% 1,000 ML 1000 ML IV (06:46)
[2020-09-15] MEDS: LORazepam 2 MG/ML INJ 0.5 MG IV (06:47)
[2020-09-15] MEDS: MORPHINE 4 MG/ML INJ IV (06:47)
[2020-09-15] MEDS: ONDANSETRON 4 MG/2 ML INJ IV ×2 (06:47→07:41)
[2020-09-15 07:06] LABS: Prothrombin Time 11.2 SECONDS (10.1-12.7)
[2020-09-15 07:08] LABS: Add Manual Diff / Slide Review NO; Basophils Absolute Auto 100 /uL (0-100); Basophils Percent Auto 0.7 % (0-2); Eosinophils Absolute Auto 0 /uL (0-450); Eosinophils Percent Auto 0.3 % (2-4); Hematocrit 46.8 % (41-53); Hemoglobin 16.4 g/dL (13.5-17.5); Lymphocytes Absolute Auto 2500 /uL (1100-4500); Lymphocytes Percent Auto 32.4 % (25-40); Mean Corpuscular Hemoglobin 30.2 PG (26-34); Mean Corpuscular Volume 86.2 fL (80-100); Monocytes Absolute Auto 600 /uL (0-900); Monocytes Percent Auto 7.7 % (3-14); Neutrophils Absolute Auto 4600 /uL (1500-7000); Neutrophils Percent Auto 58.9 % (50-75); Platelet Count 264 X10^3/uL (150-400); Red Blood Cell Count 5.43 X10^6/uL (4.5-5.9); Red Cell Distribution Width 12.9 % (11.6-14.8); White Blood Cell Count 7.8 X10^3/uL (4.5-11.0)
[2020-09-15 07:09] LABS: Alanine Aminotransferase 31 IU/L (<50); Albumin Globulin Ratio 1.5 (1.0-2.8); Alkaline Phosphatase 92 U/L (38-126); Aspartate Aminotransferase 56 IU/L (17-59); BUN Creatinine Ratio 21.1 (6-22); Bilirubin Total 0.5 mg/dL (0.2-1.3); Blood Urea Nitrogen 15 mg/dL (9-20); Calcium 10.2 mg/dL (8.4-10.2); Carbon Dioxide 30 mmol/L (22-32); Chloride 100 mmol/L (98-107); Creatine Kinase 90 U/L (55-170); Estimated Glomerular Filt Rate > 60.0 mL/min (>60); Globulin 3.4 g/dL (1.7-4.1); Glucose 147 mg/dL (70-100); HEMOLYSIS 25 (0-50); Lipase 293 U/L (23-300); PTT Partial Thromboplastin Tim 28 SECONDS (26.4-36.2); Sodium 139 mmol/L (137-145); Total Protein 8.4 g/dL (6.3-8.2)
[2020-09-15 07:10] LABS: Ethanol (ETOH) < 10 mg/dL
[2020-09-15 07:14] LABS: Lactate (Lactic Acid) 3.1 mmol/L (0.7-2.1); Lactate Dehydrogenase 651 U/L (313-618)
[2020-09-15 07:21] LABS: Troponin I < 0.012 ng/mL (0.01-0.034)
[2020-09-15 07:26] LABS: COVID19 -Nasal RAPID POSITIVE (Negative)
[2020-09-15 07:28] LABS: C-Reactive Protein Quant 0.8 mg/dL (<1.0)
[2020-09-15 07:34] LABS: Procalcitonin < 0.05 ng/mL (<0.5)
[2020-09-15 07:40] LABS: Erythrocyte Sedimentation Rate 2 MM/HR (0-15)
[2020-09-15] MEDS: HYDROMORPHONE 0.5 MG INJ IV (07:40)
[2020-09-15] MEDS: SODIUM CHLORIDE 0.9% 1,000 ML 150 ML IV (07:46)
--- NOTE | 2020-09-15 08:22 | PC.NURSE ---
IV placed by night staff
--- NOTE | 2020-09-15 08:24 | PC.NURSE ---
Patient non compliant with keeping mask in place. Patient non compliant with keeping monitoring equipment on. Continues to remove BP cuff, Pulse ox and cardiac leads. Repeated entry is required to replace equipment on patient.
--- NOTE | 2020-09-15 08:31 | DI.CT.S_ITS ---
PROCEDURE: CT ANGIO CHEST PE PROTOCOL INDICATIONS: Chest pain, shortness of breath, tachycardia TECHNIQUE: After the administration of intravenous contrast, 2 mm thick sections acquired from the pulmonary apices to the posterior costophrenic angles. 3-dimensional maximum intensity projection (MIP) coronal and sagittal reformats were then acquired through the thorax. For radiation dose reduction, the following was used: automated exposure control, adjustment of mA and/or kV according to patient size. COMPARISON: [facility], CR, XR CHEST 2 VIEWS, 09/09/2020, 13:57. [facility], CR, XR CHEST 1V, 09/15/2020, 6:46. FINDINGS: Image quality: Excellent. Pulmonary arteries: Pulmonary arteries are normal in size, and demonstrate no intraluminal filling defects to suggest central pulmonary embolism. Lungs and pleura: There are bilateral nodular and ground-glass infiltrates, predominantly involving lower lobes consistent with pneumonia. No pleural effusions or pneumothorax. Central and peripheral airways are patent. Mediastinum: Heart size is normal. Trace pericardial effusion. There is a 1.7 cm right hilar lymph node. No enlarged mediastinal lymph nodes. Thoracic aorta is normal in caliber and enhancement. Esophagus is normal in caliber. There is a small hiatal hernia. Bones and chest wall: No suspicious bony lesions. Ribs and thoracic spine appear intact throughout. Thyroid gland is normal. No axillary or supraclavicular adenopathy. Abdomen: Visualized upper abdominal solid organs appear normal in the early arterial phase of enhancement. IMPRESSION: 1. No evidence for pulmonary embolism. 2. Bilateral nodular and ground-glass infiltrates consistent with pneumonia, predominantly involving the lower lobes. 3. Mild right hilar lymphadenopathy, most likely reactive. 4. Small hiatal hernia. Dictated by: Renzo Yen M.D. on 09/15/2020 at 8:36 Approved by: Renzo Yen M.D. on 09/15/2020 at 8:45
[2020-09-15 08:39] LABS: UR Morphine/Opiate cutoff 300 Positive (Negative); Ur Creatinine Normal (Normal); Ur Specific Gravity Normal (Normal); Urine Amphetamines Negative (Negative); Urine Barbiturates Negative (Negative); Urine Benzodiazepines Negative (Negative); Urine Cocaine Negative (Negative); Urine MDMA Negative (Negative); Urine Methadone Negative (Negative); Urine Methamphetamines Negative (Negative); Urine Oxycodone Negative (Negative); Urine Phencyclidine Negative (Negative); Urine Tetrahydrocannabinol Positive (Negative); Urine Tricyclic Antidepressant Negative (Negative); Urine pH Normal (Normal)
--- NOTE | 2020-09-15 08:57 | PC.NURSE ---
rosetta bradys into the 40s occationally. Provider notified, ekg ordered, RT at bedside performing EKG
[2020-09-15 09:03] LABS: Reflexed Lactate in 2 Hours Y
--- NOTE | 2020-09-15 09:07 | PC.NURSE ---
Patient continues to remove monitoring equipment and mask. Redirectable for short periods.
--- NOTE | 2020-09-15 09:34 | PC.NURSE ---
labs drawn from left AC. Patient required five redirects to keep mask over both nose and mouth. Patient continues to remove monitoring equipment and mask with repeated instructions to not remove mask or monitoring equipment.
[2020-09-15 09:50] LABS: Creatine Kinase 79 U/L (55-170)
[2020-09-15 09:52] LABS: Lactate 2HR (Lactic Acid Rflx) 1.9 mmol/L (0.7-2.1)
[2020-09-15 10:03] LABS: Troponin I < 0.012 ng/mL (0.01-0.034)
[2020-09-15] MEDS: KETOROLAC 60 MG/2 ML VIAL 30 MG IV (10:26)
--- NOTE | 2020-09-15 10:37 | PC.NURSE ---
Patient provided a commode. Was not able to pass stool. Patient placed back on monitor and one blood pressure resulted, patient then removed monitor equipment. Provider aware.
--- NOTE | 2020-10-10 07:48 | PC.NURSE ---
Late entry, Normal saline infused 0930, 1000ml intake IV
== END 2020-09-15 11:00 | disposition home or self-care (01) ==
PROVIDERS: Emergency Medicine; Emergency Provider Emergency Medicine; Family Provider Family Medicine; PCP Registered Nurse Diabetes Educator
DX: U07.1 COVID-19 (principal); J12.89 Other viral pneumonia; R11.2 Nausea with vomiting, unspecified; R06.00 Dyspnea, unspecified; R00.0 Tachycardia, unspecified; R07.9 Chest pain, unspecified
CPT/HCPCS: 36415; 71045; 71275; 80053; 80305; 80320; 82550; 83605; 83615; 83690; 84145; 84484; 85025; 85610; 85651; 85730; 86140; 87635; 93005; 96361; 96374; 96375; 96376; 99284; J1170; J1885; J2060; J2270; J2405; Q9967

== ENCOUNTER 2020-09-18 02:32 | Observation (INO) | payer OTHER, SELFPAY ==
[2020-09-18] VITALS (25 sets, daily range): BP systolic 109–195; BP diastolic 56–116; PULSE 51–84; RESP 15–36; TEMP 36.2–37; O2SAT 95–100; BMI 23.7
--- NOTE | 2020-09-18 02:52 | ED_ITS ---
HPI - Nausea/Vomiting/Diarrhea General Chief complaint: Nausea/Vomiting/Diarrhea Stated complaint: nausea, vomiting/covid pos 9 days ago Time Seen by Provider: 09/18/20 02:40 Source: patient Mode of arrival: Ambulatory Limitations: no limitations History of Present Illness HPI Narrative: 30-year-old gentleman with a history of generalized depression severe anxiety disorder with panic attacks and alcohol use disorder with recent relapse is presents with severe vomiting and diarrhea. Was diagnosed with COVID a number of days ago. Is not having fevers chills or cough at this time. Notes over the last at least 3 days he slept little more than 2 hours due to this severity of vomiting and diarrhea. States that he is so fatigued that he is beginning to have visual hallucinations. He lives with his adult parents both who more recently diagnosed with COVID as well. Had so much difficulty with vomiting that he has not taken his escitalopram, gabapentin, lithium, hydroxyzine, Lamictal or trazodone. He states that he has been unable to eat or drink at all. Has had watery diarrhea, does not report any breathing difficulties or cough at this time. Abdominal pain from the work of vomiting. He does not report chest pain or palpitations. Related Data Previous Rx's Medication Instructions Recorded trazodone 100 mg tablet 100 mg PO BEDTIME PRN #90 tab 08/05/20 gabapentin 400 mg capsule 400 mg PO TID PRN #180 cap 08/27/20 escitalopram oxalate 10 mg tablet 20 mg PO DAILY 30 Days #60 tab 09/10/20 hydroxyzine pamoate 50 mg capsule 50 mg PO TID PRN 30 Days #90 cap 09/10/20 lamotrigine 150 mg tablet 300 mg PO DAILY 30 Days #60 tab 09/10/20 lithium carbonate 300 mg capsule 300 mg PO BEDTIME 30 Days #30 cap 09/10/20 hydrocodone-acetaminophen [[place]] 1 tab PO Q4-6H PRN #7 tab 09/15/20 Allergies Allergy/AdvReac Type Severity Reaction Status Date / Time No Known Drug Allergies Allergy Verified 09/10/20 15:52 Review of Systems Review of Systems Narrative: Remainder of review of systems including constitutional, ENT, cardiovascular, respiratory, GI, , musculoskeletal, skin, neurologic and p sychiatric systems reviewed and are unremarkable except as noted in HPI. Patient History Medical History Alcohol use disorder (Acute) Generalized anxiety disorder (Acute ~2006) Hip pain (Acute) History of panic attacks (Acute) Low back pain (Acute) Major depressive disorder, recurrent episode, severe (Acute) Pneumonia due to 2019 novel coronavirus (Acute) Family History Father Alcoholism Mother Diabetes mellitus Social History Smoking Status: Former smoker second hand exposure: Yes alcohol intake: current (very rare) substance use type: marijuana (occassionally to help sleep/ingestible) Smoking Status: Former smoker alcohol intake frequency: 0-2 drinks per day Substance Use Type: does not use Exam Narrative Exam Narrative: General: Acutely ill appearing, mildly diaphoretic, able to speak in full sentences, appears dramatically fatigued HEENT: Dry mucous membranes, normal sclera with reactive pupils, Neck: No JVD, supple Respiratory: Lungs are clear to auscultation, no wheezing no rales no rhonchi. Full and symmetrical air movement Cardiac: Rapid rate with regular rhythm no murmurs no bruits Abdomen: Soft , diffusely tender without rebound or guarding, good bowel tones, no flank pain Skin: Pale, mildly diaphoretic, peripheral perfusion is adequate without lower extremity edema Neurologic: Grossly neurologically intact with no obvious asymmetries or abnormalities Extremities: No trauma, well perfused Psych: Appears dramatically sleep deprived to the point of delirium, not currently responding to internal stimuli, fluent nonpressured speech Initial Vital Signs Initial Vital Signs: Vital Signs Temperature 97.9 F 09/18/20 02:46 Pulse Rate 80 09/18/20 02:46 Respiratory Rate 21 09/18/20 02:46 Blood Pressure 164/101 H 09/18/20 02:46 Pulse Oximetry 100 09/18/20 02:46 Course Orders Ordered: ED Orders 09/18/20 02:45 Complete Blood Count AUTO DIFF Stat Comprehensive Metabolic Panel Stat Ethanol (ETOH) Stat Lactate (Lactic Acid) Stat Lipase Stat [employer] Stat Magnesium Stat 09/18/20 03:06 XR chest 1V Stat 09/18/20 03:10 Blood Culture Stat 09/18/20 05:30 Urinalysis and Microscopic Stat Potassium Chloride 40 meq/ (Sodium Chloride) 520 mls @ 130 mls/hr IV NOW ONE Stop: 09/18/20 08:05 Last Infusion: 09/18/20 05:30 Dose: 80 mls/hr Documented by: VICTOR HUGO Cosigned by: ESTEFANIA Admin: 09/18/20 04:23 Dose: 130 mls/hr Documented by: VICTOR HUGO Cosigned by: ESTEFANIA Sodium Chloride (Normal Saline 0.9%) 1,000 mls @ 150 mls/hr IV CONT NOBLE Last Admin: 09/18/20 06:26 Dose: 150 mls/hr Documented by: VICTOR HUGO Discontinued Medications Sodium Chloride (Normal Saline 0.9%) 1,000 mls @ 1,000 mls/hr IV BOLUS ONE Stop: 09/18/20 03:46 Last Infusion: 09/18/20 04:11 Dose: 0 mls/hr Documented by: VICTOR HUGO Admin: 09/18/20 02:58 Dose: 1,000 mls/hr Documented by: VICTOR HUGO Sodium Chloride (Normal Saline 0.9%) 1,000 mls @ 1,000 mls/hr IV BOLUS ONE Stop: 09/18/20 04:40 Last Infusion: 09/18/20 06:13 Dose: 0 mls/hr Documented by: VICTOR HUGO Admin: 09/18/20 04:23 Dose: 1,000 mls/hr Documented by: VICTOR HUGO Lorazepam (Ativan) 1 mg IV NOW ONE Stop: 09/18/20 02:55 Last Admin: 09/18/20 02:59 Dose: 1 mg Documented by: VICTOR HUGO Lorazepam (Ativan) 1 mg IV NOW ONE Stop: 09/18/20 06:17 Last Admin: 09/18/20 06:26 Dose: 1 mg Documented by: VICTOR HUGO Metoclopramide HCl (Reglan) 10 mg IV NOW ONE Stop: 09/18/20 06:35 Last Admin: 09/18/20 06:43 Dose: 10 mg Documented by: VICTOR HUGO Ondansetron HCl (Zofran) 4 mg IV NOW ONE Stop: 09/18/20 02:48 Last Admin: 09/18/20 02:58 Dose: 4 mg Documented by: VICTOR HUGO Pantoprazole Sodium (Protonix) 40 mg IV NOW ONE Stop: 09/18/20 03:02 Last Admin: 09/18/20 03:25 Dose: 40 mg Documented by: VICTOR HUGO Vital Signs Vital signs: Vital Signs - 8 hr 09/18/20 02:46 09/18/20 02:47 09/18/20 02:49 Temperature 97.9 F 97.9 F Pulse Rate 80 83 80 Respiratory Rate 21 36 H 20 Blood Pressure 164/101 H 168/115 H 164/101 H Pulse Oximetry 100 100 98 09/18/20 03:00 09/18/20 03:02 09/18/20 03:30 Temperature Pulse Rate 79 74 59 L Respiratory Rate 25 H 21 15 Blood Pressure 168/115 H 156/95 H Pulse Oximetry 100 100 99 09/18/20 04:00 09/18/20 04:30 09/18/20 05:00 Temperature Pulse Rate 64 75 57 L Respiratory Rate 20 30 H Blood Pressure 139/88 Pulse Oximetry 96 96 97 09/18/20 05:30 09/18/20 06:00 09/18/20 06:22 Temperature Pulse Rate 84 61 Respiratory Rate Blood Pressure 148/103 H Pulse Oximetry 100 97 MDM - Nausea/Vomiting/Diarrhea Medical Records Attestation: I reviewed the patient's medical records. Lab Data Attestation: I reviewed the patient's lab results. Result diagrams: 09/18/20 02:45 09/18/20 02:45 Labs: Lab Results 09/18/20 09/18/20 09/18/20 Range/Units 02:45 02:45 02:45 WBC 18.4 H (4.5-11.0) X10^3/uL RBC 5.34 (4.5-5.9) X10^6/uL Hgb 16.1 (13.5-17.5) g/dL Hct 46.3 (41-53) % MCV 86.7 (80-100) fL MCH 30.1 (26-34) PG MCHC 34.7 (30-36) % RDW 12.8 (11.6-14.8) % Plt Count 364 (150-400) X10^3/uL Neut % (Auto) 88.7 H (50-75) % Lymph % (Auto) 6.9 L (25-40) % [place] % (Auto) 4.0 (3-14) % Eos % (Auto) 0.0 L (2-4) % Baso % (Auto) 0.4 (0-2) % Neut # (Auto) 90567 H (7654-9327) /uL Lymph # (Auto) 1300 (4117-5571) /uL [place] # (Auto) 700 (0-900) /uL Eos # (Auto) 0 (0-450) /uL Baso # (Auto) 100 (0-100) /uL Sodium 134 L (137-145) mmol/L Potassium 3.3 L (3.4-5.1) mmol/L Chloride 96 L (98-107) mmol/L Carbon Dioxide 26 (22-32) mmol/L BUN 15 (9-20) mg/dL Creatinine 0.67 (0.66-1.25) mg/dL Estimated GFR > 60.0 (>60) mL/min BUN/Creatinine Ratio 22.4 H (6-22) Glucose 163 H (70-100) mg/dL Lactate 3.1 H (0.7-2.1) mmol/L Calcium 9.6 (8.4-10.2) mg/dL Magnesium 2.6 H (1.6-2.3) mg/dL Total Bilirubin 1.7 H (0.2-1.3) mg/dL AST 81 H (17-59) IU/L ALT 36 (<50) IU/L Alkaline Phosphatase 104 (38-126) U/L Total Protein 8.6 H (6.3-8.2) g/dL Albumin 5.1 H (3.5-5.0) g/dL Globulin 3.5 (1.7-4.1) g/dL Albumin/Globulin Ratio 1.5 (1.0-2.8) Lipase 86 D (23-300) U/L Urine Color Urine Appearance Urine pH (4.5-8.0) Ur Specific [place] (1.000-1.035) Urine Protein (Negative) Urine Glucose (UA) (Negative) g/dL Urine Ketones (NEGATIVE) Urine Occult Blood (Negative) Urine Nitrate (Negative) Urine Bilirubin (NEGATIVE) Urine Urobilinogen (0.2) E.U./dL Ur Leukocyte Esterase (NEGATIVE) Urine RBC (0-5/HPF) Urine WBC (0-5/HPF) Urine Bacteria (None) Hyaline Casts (None) Ur Culture Indicated? [employer] (0.6-1.2) mmol/L Ethyl Alcohol ( - 10) mg/dL 09/18/20 09/18/20 09/18/20 Range/Units 02:45 02:45 05:25 WBC (4.5-11.0) X10^3/uL RBC (4.5-5.9) X10^6/uL Hgb (13.5-17.5) g/dL Hct (41-53) % MCV (80-100) fL MCH (26-34) PG MCHC (30-36) % RDW (11.6-14.8) % Plt Count (150-400) X10^3/uL Neut % (Auto) (50-75) % Lymph % (Auto) (25-40) % [place] % (Auto) (3-14) % Eos % (Auto) (2-4) % Baso % (Auto) (0-2) % Neut # (Auto) (3124-9959) /uL Lymph # (Auto) (4331-7501) /uL [place] # (Auto) (0-900) /uL Eos # (Auto) (0-450) /uL Baso # (Auto) (0-100) /uL Sodium (137-145) mmol/L Potassium (3.4-5.1) mmol/L Chloride (98-107) mmol/L Carbon Dioxide (22-32) mmol/L BUN (9-20) mg/dL Creatinine (0.66-1.25) mg/dL Estimated GFR (>60) mL/min BUN/Creatinine Ratio (6-22) Glucose (70-100) mg/dL Lactate 1.3 (0.7-2.1) mmol/L Calcium (8.4-10.2) mg/dL Magnesium (1.6-2.3) mg/dL Total Bilirubin (0.2-1.3) mg/dL AST (17-59) IU/L ALT (<50) IU/L Alkaline Phosphatase (38-126) U/L Total Protein (6.3-8.2) g/dL Albumin (3.5-5.0) g/dL Globulin (1.7-4.1) g/dL Albumin/Globulin Ratio (1.0-2.8) Lipase (23-300) U/L Urine Color Urine Appearance Urine pH (4.5-8.0) Ur Specific [place] (1.000-1.035) Urine Protein (Negative) Urine Glucose (UA) (Negative) g/dL Urine Ketones (NEGATIVE) Urine Occult Blood (Negative) Urine Nitrate (Negative) Urine Bilirubin (NEGATIVE) Urine Urobilinogen (0.2) E.U./dL Ur Leukocyte Esterase (NEGATIVE) Urine RBC (0-5/HPF) Urine WBC (0-5/HPF) Urine Bacteria (None) Hyaline Casts (None) Ur Culture Indicated? [employer] < 0.2 L (0.6-1.2) mmol/L Ethyl Alcohol < 10 ( - 10) mg/dL 09/18/20 Range/Units 05:30 WBC (4.5-11.0) X10^3/uL RBC (4.5-5.9) X10^6/uL Hgb (13.5-17.5) g/dL Hct (41-53) % MCV (80-100) fL MCH (26-34) PG MCHC (30-36) % RDW (11.6-14.8) % Plt Count (150-400) X10^3/uL Neut % (Auto) (50-75) % Lymph % (Auto) (25-40) % [place] % (Auto) (3-14) % Eos % (Auto) (2-4) % Baso % (Auto) (0-2) % Neut # (Auto) (0414-2108) /uL Lymph # (Auto) (2589-2768) /uL [place] # (Auto) (0-900) /uL Eos # (Auto) (0-450) /uL Baso # (Auto) (0-100) /uL Sodium (137-145) mmol/L Potassium (3.4-5.1) mmol/L Chloride (98-107) mmol/L Carbon Dioxide (22-32) mmol/L BUN (9-20) mg/dL Creatinine (0.66-1.25) mg/dL Estimated GFR (>60) mL/min BUN/Creatinine Ratio (6-22) Glucose (70-100) mg/dL Lactate (0.7-2.1) mmol/L Calcium (8.4-10.2) mg/dL Magnesium (1.6-2.3) mg/dL Total Bilirubin (0.2-1.3) mg/dL AST (17-59) IU/L ALT (<50) IU/L Alkaline Phosphatase (38-126) U/L Total Protein (6.3-8.2) g/dL Albumin (3.5-5.0) g/dL Globulin (1.7-4.1) g/dL Albumin/Globulin Ratio (1.0-2.8) Lipase (23-300) U/L Urine Color Yellow Urine Appearance Clear Urine pH 8.5 H (4.5-8.0) Ur Specific [place] 1.020 (1.000-1.035) Urine Protein 3+ H (Negative) Urine Glucose (UA) Negative (Negative) g/dL Urine Ketones 1+ H (NEGATIVE) Urine Occult Blood Negative (Negative) Urine Nitrate Negative (Negative) Urine Bilirubin Negative (NEGATIVE) Urine Urobilinogen 0.2 (0.2) E.U./dL Ur Leukocyte Esterase Negative (NEGATIVE) Urine RBC 0-1/hpf (0-5/HPF) Urine WBC None seen (0-5/HPF) Urine Bacteria None seen (None) Hyaline Casts 0-1/lpf (None) Ur Culture Indicated? Cult not indicated [employer] (0.6-1.2) mmol/L Ethyl Alcohol ( - 10) mg/dL Imaging Data Chest x-ray: Radiologist's Impression: Ill-defined opacity within the left lower lobe. Near complete interval resolution of the right lower lobe opacity. No pleural effusion Dr Yohan Mann [facility] Narrative Medical decision making narrative: Significantly improved with Ativan and is resting quietly as fluids are infusing. Moderate contraction alkalosis and elevated lactic acid is likely due to poor overall perfusion from dehydration. No evidence of renal injury. After 2 L of fluid lactate will be repeated. Potassium is slightly low will replace this as well. Currently there is no evidence of bacterial super infection to explain the leukocytosis suspect that this again is related to demargination and the severity of his overall emesis. Will not begin antibiotics at this time Patient is re-evaluated. Lactic acid is down to 1.3 after 2 L of fluid. Potassium is infusing. He is still slightly anxious but obviously improved after the initial mg of IV Ativan. Not delusional nor psychotic and no evidence of hypomania/shanice at this point. Brief high trial of fluids with just a few sips of water has him violently vomiting again. At this time recommendation is made for observation admission for intractable vomiting. He is dangerously sleep deprived due to the intractable vomiting as well. Will need continued fluids and as soon as he is able to keep any oral stand on needs his psychiatric medications as well. He does seem to be improving nicely from a pulmonary COVID standpoint with no oxygen requirements and improving chest x-ray. Reviewed options with the patient at this time he is willing to consider hospitalization. Spoke with the night hospitalist and patient will be admitted. Currently will most appropriately be placed in a negative pressure room due to his COVID positive status. Accommodations will need to be made with current inpatient rooms so he will remain in the emergency department until negative flow room was available on the floor. Discharge Plan Departure Patient Disposition: Admitted as Observation Clinical Impression: COVID-19, Vomiting and diarrhea Insomnia Qualifiers: Insomnia type: due to medical condition Qualified Code(s): G47.01 - Insomnia due to medical condition Intractable vomiting Qualifiers: Vomiting type: unspecified Nausea presence: with nausea Qualified Code(s): R11.2 - Nausea with vomiting, unspecified Referrals: Marty Doyle ARNP [Primary Care Provider] - Admit Date/Time: 09/18/20 06:26 Admit Provider: Kelsea Bettencourt
[2020-09-18] MEDS: SODIUM CHLORIDE 0.9% 1,000 ML 1000 ML IV ×2 (02:58→04:23)
[2020-09-18] MEDS: ONDANSETRON 4 MG/2 ML INJ IV ×2 (02:58→16:30)
[2020-09-18] MEDS: LORazepam 2 MG/ML INJ 1 MG IV ×5 (02:59→19:48)
[2020-09-18 03:00] LABS: Add Manual Diff / Slide Review NO; Basophils Absolute Auto 100 /uL (0-100); Basophils Percent Auto 0.4 % (0-2); Eosinophils Absolute Auto 0 /uL (0-450); Hematocrit 46.3 % (41-53); Hemoglobin 16.1 g/dL (13.5-17.5); Lymphocytes Absolute Auto 1300 /uL (1100-4500); Lymphocytes Percent Auto 6.9 % (25-40); Mean Corpuscular HGB Conc 34.7 % (30-36); Mean Corpuscular Hemoglobin 30.1 PG (26-34); Mean Corpuscular Volume 86.7 fL (80-100); Monocytes Absolute Auto 700 /uL (0-900); Neutrophils Absolute Auto 16300 /uL (1500-7000); Neutrophils Percent Auto 88.7 % (50-75); Platelet Count 364 X10^3/uL (150-400); Red Blood Cell Count 5.34 X10^6/uL (4.5-5.9); Red Cell Distribution Width 12.8 % (11.6-14.8); White Blood Cell Count 18.4 X10^3/uL (4.5-11.0)
[2020-09-18 03:05] LABS: Alanine Aminotransferase 36 IU/L (<50); Albumin 5.1 g/dL (3.5-5.0); Albumin Globulin Ratio 1.5 (1.0-2.8); Alkaline Phosphatase 104 U/L (38-126); Aspartate Aminotransferase 81 IU/L (17-59); BUN Creatinine Ratio 22.4 (6-22); Bilirubin Total 1.7 mg/dL (0.2-1.3); Blood Urea Nitrogen 15 mg/dL (9-20); Calcium 9.6 mg/dL (8.4-10.2); Carbon Dioxide 26 mmol/L (22-32); Chloride 96 mmol/L (98-107); Estimated Glomerular Filt Rate > 60.0 mL/min (>60); Ethanol (ETOH) < 10 mg/dL; Globulin 3.5 g/dL (1.7-4.1); Glucose 163 mg/dL (70-100); HEMOLYSIS < 15 (0-50); Lactate (Lactic Acid) 3.1 mmol/L (0.7-2.1); Lipase 86 U/L (23-300); Magnesium 2.6 mg/dL (1.6-2.3); Potassium 3.3 mmol/L (3.4-5.1); Sodium 134 mmol/L (137-145); Total Protein 8.6 g/dL (6.3-8.2)
--- NOTE | 2020-09-18 03:06 | DI.RAD.S_ITS ---
PROCEDURE: XR CHEST 1V INDICATIONS: Vomiting, leukocytosis, positive COVID TECHNIQUE: One view of the chest was acquired. COMPARISON: [facility], CR, XR CHEST 1V, 09/15/2020, 6:46. FINDINGS: Surgical changes and devices: None. Lungs and pleura: Subtle opacity opacity noted in the left lung base which could represent atelectasis or pneumonia. Right lower lobe opacity demonstrate near complete resolution No pleural effusions or pneumothorax. Mediastinum: Mediastinal contours appear normal. Heart size is normal. Bones and chest wall: No suspicious bony lesions. Overlying soft tissues appear unremarkable. IMPRESSION: Subtle left basilar opacity paddle with atelectasis versus pneumonia including COVID pneumonia. Dictated by: Ana Grier MD, PhD on 09/18/2020 at 8:36 Approved by: Ana Grier MD, PhD on 09/18/2020 at 8:38
[2020-09-18 03:10] LABS: Lithium < 0.2 mmol/L (0.6-1.2)
[2020-09-18] MEDS: PANTOPRAZOLE 40 MG VIAL IV (03:25)
[2020-09-18] MEDS: POTASSIUM CHLORIDE 40 MEQ in SODIUM CHLORIDE 0.9% 500 ML 130 ML IV (04:23)
[2020-09-18 04:50] LABS: Reflexed Lactate in 2 Hours Y
[2020-09-18 05:37] LABS: Bacteria Urine None Seen; WBC Urine None Seen (0-5/HPF)
[2020-09-18 05:38] LABS: Appearance Urine UA CLEAR; Bilirubin Urine UA NEGATIVE (NEGATIVE); Color Urine UA YELLOW; Glucose Urine UA NEGATIVE (Negative); Ketones Urine UA 1+ (NEGATIVE); Leukocyte Esterase Urine UA NEGATIVE (NEGATIVE); Nitrite Urine UA NEGATIVE (Negative); Occult Blood Urine UA NEGATIVE (Negative); Protein Urine UA 3+ (Negative); Urobilinogen Urine UA 0.2 E.U./dL (0.2); pH Urine UA 8.5 (4.5-8.0)
[2020-09-18 05:46] LABS: Hyaline Casts Urine 0-1/LPF
[2020-09-18 05:48] LABS: Culture Indicated Urine Cult Not Indicated; RBC Urine 0-1/HPF (0-5/HPF)
[2020-09-18 05:57] LABS: Lactate 2HR (Lactic Acid Rflx) 1.3 mmol/L (0.7-2.1)
[2020-09-18] MEDS: SODIUM CHLORIDE 0.9% 1,000 ML 150 ML IV ×2 (06:26→11:35)
--- NOTE | 2020-09-18 06:40 | PC.NURSE ---
IV potassium decreased from 130 mls/hr to 80 mls/hr due to pt comfort, MD bailey.
[2020-09-18] MEDS: METOCLOPRAMIDE 10 MG/2 ML INJ IV (06:43)
--- NOTE | 2020-09-18 09:51 | DI.CT.S_ITS ---
PROCEDURE: CT ABDOMEN PELVIS W CON INDICATIONS: vomiting, diarrhea, abdominal pain TECHNIQUE: After the administration of oral and intravenous contrast, 5 mm thick sections acquired from the diaphragms to the symphysis. 5 mm thick coronal and sagittal reformats were performed. For radiation dose reduction, the following was used: automated exposure control, adjustment of mA and/or kV according to patient size. COMPARISON: [facility], CT, CT ANGIO CHEST PE PROTOCOL, 09/15/2020, 7:38. [facility], CR, XR CHEST 1V, 09/18/2020, 3:10. FINDINGS: Image quality: Excellent. ABDOMEN: Lung bases: Minimal interstitial infiltrates are seen at the lung bases. A small hiatal hernia is incidentally noted. The heart size is within normal limits. Solid organs: Liver is normal in size and enhancement. Diffuse fatty liver infiltration is noted. Gallbladder wall is not thickened . Biliary system is non-dilated. Pancreas enhances normally. Spleen is normal in size and enhancement. Incidental note is made of an accessory splenule along the hilum of the primary spleen. No adrenal nodules. Kidneys are normal in size and enhancement, without hydronephrosis. Peritoneum and bowel: Stomach, small bowel, and colon loops are normal in caliber and wall thickness. No free fluid or air. Nodes and vessels: No retroperitoneal or mesenteric adenopathy. Aorta and inferior vena cava are normal in caliber. Colonic diverticulosis is seen, without findings of active diverticulitis. Miscellaneous: No ventral hernias. PELVIS: Genitourinary: Bladder wall thickness is normal. Miscellaneous: No inguinal hernias or adenopathy. Bones: No suspicious bony lesions. No vertebral body compression fractures. IMPRESSION: No imaging explanation is found for this patient's presenting symptoms. The patient's known interstitial infiltrates are partially seen at the lung bases. Incidental note is made of: Small hiatal hernia Fatty liver infiltration Accessory splenule Diverticulosis, without active diverticulitis Dictated by: Mathew Walters M.D. on 09/18/2020 at 9:55 Approved by: Mathew Walters M.D. on 09/18/2020 at 10:01
[2020-09-18 10:52] LABS: Troponin I < 0.012 ng/mL (0.01-0.034)
--- NOTE | 2020-09-18 12:39 | P.HP_ITS ---
History of Present Illness History of Present Illness Date Patient Seen: 09/18/20 Time Patient Seen: 11:00 Chief complaint: nausea, vomiting/covid pos 9 days ago Narrative: Heraclio Khan is a 30-year-old male with a past medical history of anxiety and depression, alcohol use disorder with recent relapse presenting with severe vomiting and diarrhea for the past 3 days. He recently had COVID-19 diagnosed, but states that his respiratory symptoms have actually been improving. He denies fevers, chills, or cough at this time. He complains of epigastric abdominal/chest pain that he states is fairly severe, nonradiating, and improved with breathing exercises, pain medications, or and the lytics. He does feel diaphoretic and nauseous. He has not slept due to the severity of his vomiting and diarrhea and endorses audio hallucinations, which he describes as hearing someone talking when no one is actually there. He lives with his parents who are both recently diagnosed with COVID as well. He has not been able to tolerate his recent medications which include escitalopram, gabapentin, lithium, hydroxyzine, Lamictal, and trazodone. He states that he last had alcohol 3 days ago, prior to the onset of symptoms, and he had 8 beers at that time. He states that he only drinks on weekends. He denies any prior symptoms of alcohol withdrawal and denies a history of seizure or prior intubations. Patient was seen in the emergency room for chest pain and had a negative evaluation including troponins and EKG. Upon arrival to the floor he again complained of chest pain, EKG was unremarkable and troponin was checked and again negative. His chest pain seemingly improved with Ativan. In the emergency room, patient was mildly hypertensive but remainder of his vital signs were unremarkable. He is saturating 100% on room air. Initial labs revealed a leukocytosis which improved after hydration. He also had an elevated lactate and hypokalemia which also improved with IV fluids. UA was unremarkable. Alcohol level was negative as well. Chest x-ray showed improvement in his bilateral consolidation from prior imaging. Patient History Medical History Alcohol use disorder (Acute) Generalized anxiety disorder (Acute ~2006) Hip pain (Acute) History of panic attacks (Acute) Low back pain (Acute) Major depressive disorder, recurrent episode, severe (Acute) Pneumonia due to 2019 novel coronavirus (Acute) Family & Social History Family History Father Alcoholism Mother Diabetes mellitus Social History: household members family Prior Living Arrangements House Safety & Behavioral: Feels Safe in Current Yes Environment Been Physically Hurt or No Threatened By a Person Suicidal Ideation Description None Suicide Plan Description No Plan Tobacco & Substance use: Smoking Status Former smoker alcohol intake current alcohol intake frequency 0-2 drinks per day Substance Use Type marijuana Meds Home Medications and Allergies Home Medications Medication Instructions Recorded Confirmed Type trazodone 100 mg tablet 100 mg PO BEDTIME PRN #90 tab 08/05/20 09/10/20 Rx gabapentin 400 mg capsule 400 mg PO TID PRN #180 cap 08/27/20 09/10/20 Rx escitalopram oxalate 10 mg tablet 20 mg PO DAILY 30 Days #60 tab 09/10/20 09/10/20 Rx hydroxyzine pamoate 50 mg capsule 50 mg PO TID PRN 30 Days #90 cap 09/10/20 09/10/20 Rx lamotrigine 150 mg tablet 300 mg PO DAILY 30 Days #60 tab 09/10/20 09/10/20 Rx lithium carbonate 300 mg capsule 300 mg PO BEDTIME 30 Days #30 cap 09/10/20 09/10/20 Rx hydrocodone-acetaminophen [[place]] 1 tab PO Q4-6H PRN #7 tab 09/15/20 Rx Allergies Allergy/AdvReac Type Severity Reaction Status Date / Time No Known Drug Allergies Allergy Verified 09/10/20 15:52 Review of Systems Review of Systems Narrative: All other systems reviewed with the patient and are negative unless otherwise stated. Exam Vital Signs (past 8 hours): - 09/18/20 05:00 09/18/20 05:30 09/18/20 06:00 Temperature Pulse Rate 57 L 84 61 Respiratory Rate Blood Pressure Pulse Oximetry 97 100 97 09/18/20 06:11 09/18/20 06:21 09/18/20 06:22 Temperature Pulse Rate 63 Respiratory Rate Blood Pressure 148/103 H 148/103 H Pulse Oximetry 98 09/18/20 06:30 09/18/20 07:00 09/18/20 07:30 Temperature Pulse Rate 68 51 L 61 Respiratory Rate Blood Pressure 168/94 H 136/82 145/80 H Pulse Oximetry 98 97 97 09/18/20 08:00 09/18/20 09:14 Temperature 97.8 F Pulse Rate 71 61 Respiratory Rate 17 Blood Pressure 109/56 L 146/79 H Pulse Oximetry 95 100 Oxygen Delivery Method Room Air Narrative Exam Narrative: GENERAL APPEARANCE: Well developed, well nourished, young male. SKIN: Inspection of the skin reveals no rashes, ulcerations or petechiae. HEENT: Normocephalic atraumatic, extraocular muscles are intact, oropharynx is clear and mucous membranes are dry, neck is supple without adenopathy NECK: Supple and symmetric. There was no thyroid enlargement, and no tenderness, or masses were felt. CHEST: Normal AP diameter and normal contour without any kyphoscoliosis. Mild tenderness upon palpation. LUNGS: Auscultation of the lungs revealed mild bibasilar crackles, but no wheezing. CARDIOVASCULAR: There was a regular rate and rhythm without any murmurs, gallops, rubs. Peripheral pulses were 2+ and symmetric. ABDOMEN: Soft, mild epigastric tenderness, nondistended. MUSCULOSKELETAL: There was no tenderness or effusions noted. Muscle strength and tone were normal. EXTREMITIES: No cyanosis, clubbing or edema. NEUROLOGIC: Alert and oriented x 3. Normal affect. Strength is +5/5 in the Upper Extremities and Lower Extremities Bilaterally. Sensation to touch was normal. Psych: Slightly anxious, scratching at his chest and abdomen. Occasionally possibly distracted by internal stimuli. Avoids eye contact. Objective ECG Impression: Sinus bradycardia with marked sinus arrhythmia Nonspecific ST abnormality, similar to prior tracing. Imaging CT scan - abdomen: Radiologist's impression: No imaging explanation is found for this patient's presenting symptoms. The patient's known interstitial infiltrates are partially seen at the lung bases. Labs Result Diagrams: 09/18/20 12:30 09/18/20 02:45 Labs: Laboratory Results - last 24 hr 09/18/20 09/18/20 09/18/20 02:45 02:45 02:45 WBC 18.4 H RBC 5.34 Hgb 16.1 Hct 46.3 MCV 86.7 MCH 30.1 MCHC 34.7 RDW 12.8 Plt Count 364 Neut % (Auto) 88.7 H Lymph % (Auto) 6.9 L [place] % (Auto) 4.0 Eos % (Auto) 0.0 L Baso % (Auto) 0.4 Neut # (Auto) 69600 H Lymph # (Auto) 1300 [place] # (Auto) 700 Eos # (Auto) 0 Baso # (Auto) 100 Sodium 134 L Potassium 3.3 L Chloride 96 L Carbon Dioxide 26 BUN 15 Creatinine 0.67 Estimated GFR > 60.0 BUN/Creatinine Ratio 22.4 H Glucose 163 H Lactate 3.1 H Calcium 9.6 Magnesium 2.6 H Total Bilirubin 1.7 H AST 81 H ALT 36 Alkaline Phosphatase 104 Troponin I Total Protein 8.6 H Albumin 5.1 H Globulin 3.5 Albumin/Globulin Ratio 1.5 Lipase 86 D Urine Color Urine Appearance Urine pH Ur Specific [place] Urine Protein Urine Glucose (UA) Urine Ketones Urine Occult Blood Urine Nitrate Urine Bilirubin Urine Urobilinogen Ur Leukocyte Esterase Urine RBC Urine WBC Urine Bacteria Hyaline Casts Ur Culture Indicated? [place] Ethyl Alcohol 09/18/20 09/18/20 09/18/20 02:45 02:45 02:45 WBC RBC Hgb Hct MCV MCH MCHC RDW Plt Count Neut % (Auto) Lymph % (Auto) [place] % (Auto) Eos % (Auto) Baso % (Auto) Neut # (Auto) Lymph # (Auto) [place] # (Auto) Eos # (Auto) Baso # (Auto) Sodium Potassium Chloride Carbon Dioxide BUN Creatinine Estimated GFR BUN/Creatinine Ratio Glucose Lactate Calcium Magnesium Total Bilirubin AST ALT Alkaline Phosphatase Troponin I < 0.012 Total Protein Albumin Globulin Albumin/Globulin Ratio Lipase Urine Color Urine Appearance Urine pH Ur Specific [place] Urine Protein Urine Glucose (UA) Urine Ketones Urine Occult Blood Urine Nitrate Urine Bilirubin Urine Urobilinogen Ur Leukocyte Esterase Urine RBC Urine WBC Urine Bacteria Hyaline Casts Ur Culture Indicated? [place] < 0.2 L Ethyl Alcohol < 10 09/18/20 09/18/20 05:25 05:30 WBC RBC Hgb Hct MCV MCH MCHC RDW Plt Count Neut % (Auto) Lymph % (Auto) [place] % (Auto) Eos % (Auto) Baso % (Auto) Neut # (Auto) Lymph # (Auto) [place] # (Auto) Eos # (Auto) Baso # (Auto) Sodium Potassium Chloride Carbon Dioxide BUN Creatinine Estimated GFR BUN/Creatinine Ratio Glucose Lactate 1.3 Calcium Magnesium Total Bilirubin AST ALT Alkaline Phosphatase Troponin I Total Protein Albumin Globulin Albumin/Globulin Ratio Lipase Urine Color Yellow Urine Appearance Clear Urine pH 8.5 H Ur Specific [place] 1.020 Urine Protein 3+ H Urine Glucose (UA) Negative Urine Ketones 1+ H Urine Occult Blood Negative Urine Nitrate Negative Urine Bilirubin Negative Urine Urobilinogen 0.2 Ur Leukocyte Esterase Negative Urine RBC 0-1/hpf Urine WBC None seen Urine Bacteria None seen Hyaline Casts 0-1/lpf Ur Culture Indicated? Cult not indicated [place] Ethyl Alcohol Assessment & Plan Assessment & Plan narrative: Heraclio Khan is a 30-year-old male with a past medical history of anxiety and depression, alcohol use disorder with recent relapse presenting with severe vomiting and diarrhea for the past 3 days, he is admitted with intractable nausea and vomiting as well as dehydration under observation status. 1. Intractable nausea, vomiting, abdominal pain, and diarrhea -patient reports abrupt onset of symptoms starting 3 days ago. Consider mild pancreatitis given his alcohol intake as his lipase was 293 when he was seen in the emergency room for chest pain, and improved to 85 today with worsening symptoms due to withdrawal from a number of his medications that can cause his symptoms. He was also recently given prescriptions for opiates for pain control. Endorses occasional marijuana use but history not c/w cyclic vomiting syndrome. -also possible this may be sequela of his COVID-19 infection -CT scan of his abdomen did not reveal an acute cause and there is no bowel thickening noted. -since the patient has been rehydrated he is starting to feel somewhat improved but remained nauseous and not tolerating much p.o. intake. -leukocytosis is felt more likely to be related to dehydration rather than a superimposed infection. -GI panel if diarrhea is present while admitted. 2. COVID-19 pneumonia -continue supportive care, the patient is not hypoxic at this time. 3. Acute dehydration, present on admission, improved -patient received fluid boluses in the emergency room as well as 150 cc per juan luis r, the patient request to stop IV fluids at this time is he is excessively urinating. He is tolerating a bit more fluid intake upon arrival to the floor and will continue monitor. 4. Anxiety and depression, chronic -continue home medications 5. Elevated blood pressure without a diagnosis of hypertension -suspect this is related to his anxiety, blood pressure has been improving with intermittent Ativan. Will continue to monitor. Code: Full Dispo: Admitted under observation status is stay is not expected to exceed 2 midnights. COVID-19 COVID-19 status: Positive Result date/Date tested (Pos, Neg/Pending): 09/09/20 Quality VTE Deep Vein Thrombosis/Pulmonary Embolism Present on Admission: No
[2020-09-18 12:59] LABS: Add Manual Diff / Slide Review NO; Basophils Absolute Auto 0 /uL (0-100); Basophils Percent Auto 0.1 % (0-2); Eosinophils Absolute Auto 0 /uL (0-450); Hematocrit 39.5 % (41-53); Hemoglobin 13.7 g/dL (13.5-17.5); Lymphocytes Absolute Auto 1500 /uL (1100-4500); Lymphocytes Percent Auto 10.5 % (25-40); Mean Corpuscular HGB Conc 34.6 % (30-36); Mean Corpuscular Hemoglobin 30.3 PG (26-34); Mean Corpuscular Volume 87.6 fL (80-100); Monocytes Absolute Auto 900 /uL (0-900); Monocytes Percent Auto 6.4 % (3-14); Neutrophils Absolute Auto 11500 /uL (1500-7000); Platelet Count 266 X10^3/uL (150-400); Red Blood Cell Count 4.51 X10^6/uL (4.5-5.9); Red Cell Distribution Width 12.5 % (11.6-14.8); White Blood Cell Count 13.9 X10^3/uL (4.5-11.0)
--- NOTE | 2020-09-18 18:22 | PC.NURSE ---
1800- Patient transferred from room 220 for closer monitoring. Patient oriented to the room call light is with in reach. Patient states he is sleepy and wants to rest. Isolation is turned to on. Will monitor.
[2020-09-18 21:45] LABS: Adenovirus F 40/41 Not Detected (Not Detect); Astrovirus Not Detected (Not Detect); Campylobacter Not Detected (Not Detect); Clostridium difficile toxin AB Not Detected (Not Detect); Cryptosporidium Not Detected (Not Detect); Cyclospora cayetanensis Not Detected (Not Detect); Entamoeba histolytica Not Detected (Not Detect); Enteroaggregative E.coli Not Detected (Not Detect); Enteropathogenic E.coli Not Detected (Not Detect); Enterotoxigenic E.coli It/st Not Detected (Not Detect); Giardia lamblia Not Detected (Not Detect); Norovirus GI/GII Not Detected (Not Detect); Plesiomonsa shigelloides Not Detected (Not Detect); Rotavirus A Not Detected (Not Detect); Salmonella Not Detected (Not Detect); Sapovirus Not Detected (Not Detect); Shiga-like toxin-prod E.coli Not Detected (Not Detect); Shigella/Enteroinvasive E.coli Not Detected (Not Detect); Vibrio Not Detected (Not Detect); Vibrio cholerae Not Detected (Not Detect); Yersinia enterocolitica Not Detected (Not Detect)
[2020-09-18] MEDS: LITHIUM 300 MG IR CAPSULE PO (21:59)
[2020-09-18] MEDS: SODIUM CHLORIDE 0.9% FLUSH 10 ML IV (21:59)
[2020-09-18] MEDS: hydrOXYzine pamoate 25 MG CAPSULE 50 MG PO ×2 (21:59→22:27)
--- NOTE | 2020-09-18 22:14 | PC.NURSE ---
Addendum entered by Mckenna Wayne R.N. 09/18/20 23:01: 2300-Patient left against medical advice. SAMMIE Bettencourt aware, security escorted patient out of the hospital. IV removed prior to discharge. Patient declined to sign the AMA form. Addendum entered by Mckenna Wayne R.N. 09/18/20 22:50: 2250- Patient is up in the room has taken off his hospital gown and his monitor. Patient states he is going home. When asked how he was getting home he states he will drive. Patient was seen by SAMMIE Bettencourt. Will inform her of patient desire to leave AMA. Original Note: 2200- Patient was resting until about 10pm. When given his lithium and Vistaril for anxiety patient took the meds and about two minutes passed when he got up to the bathroom. Patient was observed putting his fingers down his throat to induce vomiting. Patient stated that he has to make himself vomit after taking medication because otherwise he becomes anxious. Patient advised that we could not help him if he is not taking his medication. SAMMIE Bettencourt was made aware. Will monitor.
--- NOTE | 2020-09-18 22:49 | P.EN_ITS ---
Event Note Date Patient Seen: 09/18/20 Time Patient Seen: 22:39 Event Note: Heraclio Khan is a 30-year-old male with a past medical history of anxiety and depression, alcohol use disorder with recent relapse presenting with severe vomiting and diarrhea for the past 3 days. He recently had COVID-19 diagnosed, but states that his respiratory symptoms have actually been improving. He denies fevers, chills, or cough at this time. He complains of epigastric abdominal/chest pain that he states is fairly severe, nonradiating, and improved with breathing exercises, pain medications, or and the lytics. He does feel diaphoretic and nauseous. He has not slept due to the severity of his vomiting and diarrhea and endorses audio hallucinations, which he describes as hearing someone talking when no one is actually there. He lives with his parents who are both recently diagnosed with COVID as well. He has not been able to tolerate his recent medications which include escitalopram, gabapentin, lithium, hydroxyzine, Lamictal, and trazodone. He states that he last had alcohol 3 days ago, prior to the onset of symptoms, and he had 8 beers at that time. He states that he only drinks on weekends. He denies any prior symptoms of alcohol withdrawal and denies a history of seizure or prior intubations. Patient was seen in the emergency room for chest pain and had a negative evaluation including troponins and EKG. Upon arrival to the floor he again complained of chest pain, EKG was unremarkable and troponin was checked and again negative. His chest pain seemingly improved with Ativan. Approximately 2100 this evening SARBJIT Andres taking care of the patient contacted me to advise me that she had given the patient his p.m. medications, whereupon she re-entered the room defined in the bathroom vomiting up all his p.o. medications. ?He stated that he has to throw up his pills because he gets very anxious when he takes them ?. Then approximately 20-30min later I was notified by the nurse that the patient wanted to leave against medical advice. I went in and spoke with the patient he was severely agitated restless he moved from the bed to the bench to the chair to the bathroom multiple times, he was unconcerned with his state of undress, and would begin a statement and become somnolent mid sentence and unresponsive, appearing over-sedated. Patient stated that ?I appeared to be wearing a box made of popcorn with a statement about a theater on it from across the room ?the patient notes that he has been having delusions and hallucinations. I discussed with him that his lithium levels were low and that he has been off his psychiatric medications for several days and that he would feel better if he took his medication. I also discussed with him his positive COVID status and the risk to himself and others should he leave the hospital against medical advice. He was not resistant to medical intervention, he followed commands when I asked him to get back into bed and place a blood pressure cuff pulse ox. Again cycling through states of hyper agitation and movement followed by periods of excessive sleepiness. Patient did not verbalize self-harm or harm to others, not meeting the criteria for an emergency psychiatric consultation. We could not force patient to take his medications and not vomit them up, nor could we restrained the patient. We discussed the risk of fall and or injury based on his hyper agitated state and movement around hospital room with intermittent periods of somnolence. The patient had received 2 1 mg doses of Ativan on the evening shift, his heart rate wall in the room were between 55 and 60 so I determined that no further Ativan could be provided due to concerns for over-sedation and risk of fall and injury. None of his medications were available in IV form. I ended the bedside consult with the agreement that I would return with his oral medications and sit with him while he took them, verbalizing the importance and need of his medication, as well as the fact that he is not medically improved enough for discharge. At approximately 10:30 p.m. the nurse contacted me to advise that the patient was dressed and leaving against medical advice. I asked that security be contacted to escort the patient out according to his wishes. Mckenna SCHAFFER advised that she would be removing the patient's IV and allowing him to exit the hospital with the senior information security consultant. Temp 97.2? blood pressure 155/92 pulse 59 respiration 22 O2 sat 96% Hyper agitation and restlessness with alternating bouts of somnolence, physically moving around the hospital room constantly. Anxiety exacerbation, medication withdrawal with psychotic features, positive COVID Allow patient to leave facility with senior information security consultant
== END 2020-09-18 23:00 | disposition left against medical advice (07) ==
LOC: ED 02:47 → AC 06:27 → ICU 17:41
PROVIDERS: Internal Medicine; Admitting Provider Nurse Practitioner Family; Emergency Provider Emergency Medicine; PCP Registered Nurse Diabetes Educator; Referring Provider Emergency Medicine; Visit Provider Nurse Practitioner Family
DX: R11.2 Nausea with vomiting, unspecified (principal); R19.7 Diarrhea, unspecified; U07.1 COVID-19; F10.20 Alcohol dependence, uncomplicated; R03.0 Elevated blood-pressure reading, without diagnosis of hypertension; F41.9 Anxiety disorder, unspecified; R07.9 Chest pain, unspecified; F32.9 Major depressive disorder, single episode, unspecified; E86.0 Dehydration; G47.01 Insomnia due to medical condition; Z53.29 Procedure and treatment not carried out because of patient's decision for other reasons
CPT/HCPCS: 36415; 71045; 74177; 80053; 80178; 80320; 81001; 83605; 83690; 83735; 84484; 85025; 87040; 87507; 93005; 96361; 96374; 96375; 96376; 99284; G0378; C9113; J2060; J2405; J2765; J3480; Q9967

== ENCOUNTER 2020-09-22 03:54 | Emergency (ER) | payer OTHER, SELFPAY ==
[2020-09-18 08:58] VITALS: BMI 23.7
[2020-09-22 03:55] VITALS: BP 134/95; PULSE 96; RESP 16; TEMP 36.9; O2SAT 99; BMI 28.7
--- NOTE | 2020-09-22 03:55 | ED.GENADULT ---
HPI - General Adult General Chief complaint: Abdominal Pain Stated complaint: CHEST DISCOMFORT, COVID 19 POSITIVE Time Seen by Provider: 09/22/20 03:55 Source: patient Mode of arrival: Ambulatory Limitations: no limitations History of Present Illness HPI narrative: Patient is a 30-year-old male. His known COVID positive. Has been seen here in this emergency department in the past for similar issues a few presents with today. Was also seen in an outside facility in the past couple days with same symptoms. I was able to review that note and after medications and labs and right upper quadrant ultrasound he was discharged home with a prescription for Phenergan. He states that he thought that the Phenergan was working for him until yesterday when he started having more vomiting. He stated that he is also just started on a PPI. Here for evaluation of epigastric discomfort. An nausea and vomiting. Related Data Previous Rx's Medication Instructions Recorded trazodone 100 mg tablet 100 mg PO BEDTIME PRN #90 tab 08/05/20 gabapentin 400 mg capsule 400 mg PO TID PRN #180 cap 08/27/20 escitalopram oxalate 10 mg tablet 20 mg PO DAILY 30 Days #60 tab 09/10/20 hydroxyzine pamoate 50 mg capsule 50 mg PO TID PRN 30 Days #90 cap 09/10/20 lamotrigine 150 mg tablet 300 mg PO DAILY 30 Days #60 tab 09/10/20 lithium carbonate 300 mg capsule 300 mg PO BEDTIME 30 Days #30 cap 09/10/20 hydrocodone-acetaminophen [[place]] 1 tab PO Q4-6H PRN #7 tab 09/15/20 promethazine 25 mg VT Q6H PRN #12 ea 09/22/20 sucralfate [Carafate] 1 g PO QACHS #28 tab 09/22/20 Allergies Allergy/AdvReac Type Severity Reaction Status Date / Time No Known Drug Allergies Allergy Verified 09/22/20 04:37 Review of Systems Constitutional Constitutional: Denies fever(s) and Denies headache(s) ENT Ears, Nose, Mouth, and Throat: Denies headache(s) Cardiovascular Cardiovascular: Denies chest pain and Denies dyspnea Respiratory Respiratory: Denies dyspnea Gastrointestinal Gastrointestinal: Reports abdominal pain, Denies change in bowel habits, Reports nausea and Reports vomiting Genitourinary Genitourinary: Denies dysuria Genitourinary: Denies dysuria Musculoskeletal Musculoskeletal: Denies arthralgias and Denies myalgias Integumentary/Breasts Skin/Breast: Denies rash Neurologic Neurologic: Denies behavioral changes and Denies headache(s) Psychiatric Psychiatric: Reports anxiety and Denies behavioral changes Hematologic/Lymphatic Hematologic/Lymphatic: Denies easy bleeding and Denies easy bruising Patient History Medical History (Updated 09/22/20 @ 06:31 by Miguelito Moreland DO) Alcohol use disorder Generalized anxiety disorder (~2005) Hip pain History of panic attacks Low back pain Major depressive disorder, recurrent episode, severe Pneumonia due to 2019 novel coronavirus Family History Father Alcoholism Mother Diabetes mellitus Social History household members: family Smoking Status: Former smoker second hand exposure: Yes alcohol intake: current substance use type: marijuana (occassionally to help sleep/ingestible) Smoking Status: Former smoker alcohol intake frequency: 0-2 drinks per day Substance Use Type: marijuana Exam Initial Vital Signs Initial Vital Signs: Vital Signs Temperature 98.4 F 09/22/20 03:55 Pulse Rate 96 H 09/22/20 03:55 Respiratory Rate 16 09/22/20 03:55 Blood Pressure 134/95 H 09/22/20 03:55 Pulse Oximetry 99 09/22/20 03:55 Const General: cooperative and comfortable HENMT Head: normal to inspection and normocephalic Ears: hearing grossly normal bilaterally Nose: external nose normal Eyes Pupils: PERRL EOM: EOM intact bilaterally Resp Effort & Inspection: normal respiratory effort Auscultation: clear to auscultation bilaterally Cardio Rate: regular rate Rhythm: regular rhythm GI Inspection: non-distended Palpation: soft and tender (Epigastric) Skin Lesions: no lesions Rashes: no rashes Neuro General: patient alert, patient awake and patient oriented x3 Cognition: normal cognition Extrem General: capillary refill normal Psych Appearance: well kempt Speech and Movement: restless Scores GCS Heena coma scale eye opening: Spontaneous Heena coma scale verbal response: Orientated Heena coma scale motor response: Obey commands Heena coma scale total score: 15 Course Orders Ordered: ED Orders 09/22/20 04:05 COVID19 Stat 09/22/20 04:24 Complete Blood Count AUTO DIFF Stat Comprehensive Metabolic Panel Stat Lipase Stat Discontinued Medications Sodium Chloride (Normal Saline 0.9%) 1,000 mls @ 1,000 mls/hr IV BOLUS ONE Stop: 09/22/20 05:12 Last Infusion: 09/22/20 05:30 Dose: Infused Documented by: Lorazepam (Lorazepam 2 Mg/Ml Inj) 1 mg IV NOW ONE Stop: 09/22/20 04:58 Last Admin: 09/22/20 05:03 Dose: 1 mg Documented by: Metoclopramide HCl (Metoclopramide 10 Mg/2 Ml Inj) 10 mg IV NOW ONE Stop: 09/22/20 04:14 Last Admin: 09/22/20 04:20 Dose: 10 mg Documented by: Morphine Sulfate (Morphine 4 Mg/Ml Inj) 4 mg IV NOW ONE Stop: 09/22/20 04:42 Last Admin: 09/22/20 04:45 Dose: 4 mg Documented by: Pantoprazole Sodium (Pantoprazole 40 Mg Vial) 40 mg IV NOW ONE Stop: 09/22/20 04:14 Last Admin: 09/22/20 04:20 Dose: 40 mg Documented by: Vital Signs Vital signs: Vital Signs - 8 hr 09/22/20 03:55 09/22/20 04:30 Temperature 98.4 F Pulse Rate 96 H 68 Respiratory Rate 16 18 Blood Pressure 134/95 H 120/79 Pulse Oximetry 99 99 Medical Decision Making Medical Records Medical records reviewed: Yes I reviewed the patient's medical records. Lab Data Lab results reviewed: Yes I reviewed the patient's lab results. Result diagrams: 09/22/20 04:24 09/22/20 04:24 Labs: Lab Results 09/22/20 09/22/20 09/22/20 Range/Units 04:05 04:24 04:24 WBC 15.5 H (4.5-11.0) X10^3/uL RBC 4.84 (4.5-5.9) X10^6/uL Hgb 14.5 (13.5-17.5) g/dL Hct 42.1 (41-53) % MCV 87.0 (80-100) fL MCH 29.9 (26-34) PG MCHC 34.3 (30-36) % RDW 12.5 (11.6-14.8) % Plt Count 349 (150-400) X10^3/uL Neut % (Auto) 90.4 H (50-75) % Lymph % (Auto) 6.1 L (25-40) % [place] % (Auto) 2.9 L (3-14) % Eos % (Auto) 0.0 L (2-4) % Baso % (Auto) 0.6 (0-2) % Neut # (Auto) 52769 H (3897-8207) /uL Lymph # (Auto) 900 L (4453-5139) /uL [place] # (Auto) 500 (0-900) /uL Eos # (Auto) 0 (0-450) /uL Baso # (Auto) 100 (0-100) /uL Sodium 133 L (137-145) mmol/L Potassium 3.2 L (3.4-5.1) mmol/L Chloride 96 L (98-107) mmol/L Carbon Dioxide 27 (22-32) mmol/L BUN 13 (9-20) mg/dL Creatinine 0.60 L (0.66-1.25) mg/dL Estimated GFR > 60.0 (>60) mL/min BUN/Creatinine Ratio 21.7 (6-22) Glucose 110 H (70-100) mg/dL Calcium 9.2 (8.4-10.2) mg/dL Total Bilirubin 0.8 (0.2-1.3) mg/dL AST 51 (17-59) IU/L ALT 21 (<50) IU/L Alkaline Phosphatase 85 (38-126) U/L Total Protein 7.7 (6.3-8.2) g/dL Albumin 4.8 (3.5-5.0) g/dL Globulin 2.9 (1.7-4.1) g/dL Albumin/Globulin Ratio 1.7 (1.0-2.8) Lipase 200 D (23-300) U/L COVID-19 PCR Positive H (Negative) MDM Narrative Medical decision making narrative: Was able to review the visit from the outside facility a couple days ago. At that point he had a leukocytosis of 19. He continues to have a leukocytosis today but I suspect this is demargination from vomiting. Low concern for surgical abdomen. Patient did feel somewhat better after the medications given here. It seemed that the Ativan worked the best. I suspect that much of his symptoms are related to anxiety. Also feel that his epigastric pain is most likely reflux/ulceration from the vomiting over the past several days. Feel we can hold on radiologic studies. Will refill his prescription for Phenergan suppositories as he felt this seemed to help him. Also given prescription for Carafate. Patient will be discharged home. Discharge Plan Departure Patient Disposition: Home Clinical Impression: Anxiety, Abdominal pain Instructions: DI for Abdominal Pain-Adult Activity Restrictions/Additional Instructions: Take all your medications as directed. I recommend you contact your primary provider for follow-up. Prescriptions: New promethazine 25 mg suppository 25 mg VT Q6H PRN (Reason: nausea and vomiting) Qty: 12 RF: 0 sucralfate [Carafate] 1 gram tablet 1 g PO QACHS Qty: 28 RF: 0 No Action trazodone 100 mg tablet 100 mg PO BEDTIME PRN (Reason: sleep) Qty: 90 RF: 1 escitalopram oxalate 10 mg tablet 20 mg PO DAILY 30 Days Qty: 60 RF: 1 lamotrigine 150 mg tablet 300 mg PO DAILY 30 Days Qty: 60 RF: 1 hydroxyzine pamoate 50 mg capsule 50 mg PO TID PRN (Reason: anxiety) 30 Days Qty: 90 RF: 0 lithium carbonate 300 mg capsule 300 mg PO BEDTIME 30 Days Qty: 30 RF: 0 gabapentin 400 mg capsule 400 mg PO TID PRN (Reason: anxiety sleep) Qty: 180 RF: 0 hydrocodone-acetaminophen [[place]] 5-325 mg tablet 1 tab PO Q4-6H PRN (Reason: pain) Qty: 7 RF: 0 Referrals: Marty Doyle ARNP [Primary Care Provider] -
[2020-09-22] MEDS: METOCLOPRAMIDE 10 MG/2 ML INJ IV (04:20)
[2020-09-22] MEDS: SODIUM CHLORIDE 0.9% 1,000 ML 1000 ML IV (04:20)
[2020-09-22] MEDS: PANTOPRAZOLE 40 MG VIAL IV (04:20)
[2020-09-22 04:30] VITALS: BP 120/79; PULSE 68; RESP 18; O2SAT 99
[2020-09-22 04:33] LABS: Add Manual Diff / Slide Review NO; Basophils Absolute Auto 100 /uL (0-100); Basophils Percent Auto 0.6 % (0-2); Eosinophils Absolute Auto 0 /uL (0-450); Hematocrit 42.1 % (41-53); Hemoglobin 14.5 g/dL (13.5-17.5); Lymphocytes Absolute Auto 900 /uL (1100-4500); Lymphocytes Percent Auto 6.1 % (25-40); Mean Corpuscular HGB Conc 34.3 % (30-36); Mean Corpuscular Hemoglobin 29.9 PG (26-34); Monocytes Absolute Auto 500 /uL (0-900); Monocytes Percent Auto 2.9 % (3-14); Neutrophils Absolute Auto 14000 /uL (1500-7000); Neutrophils Percent Auto 90.4 % (50-75); Platelet Count 349 X10^3/uL (150-400); Red Blood Cell Count 4.84 X10^6/uL (4.5-5.9); Red Cell Distribution Width 12.5 % (11.6-14.8); White Blood Cell Count 15.5 X10^3/uL (4.5-11.0)
[2020-09-22 04:40] LABS: Alanine Aminotransferase 21 IU/L (<50); Albumin 4.8 g/dL (3.5-5.0); Albumin Globulin Ratio 1.7 (1.0-2.8); Alkaline Phosphatase 85 U/L (38-126); Aspartate Aminotransferase 51 IU/L (17-59); BUN Creatinine Ratio 21.7 (6-22); Bilirubin Total 0.8 mg/dL (0.2-1.3); Blood Urea Nitrogen 13 mg/dL (9-20); Calcium 9.2 mg/dL (8.4-10.2); Carbon Dioxide 27 mmol/L (22-32); Chloride 96 mmol/L (98-107); Estimated Glomerular Filt Rate > 60.0 mL/min (>60); Globulin 2.9 g/dL (1.7-4.1); Glucose 110 mg/dL (70-100); HEMOLYSIS < 15 (0-50); Lipase 200 U/L (23-300); Potassium 3.2 mmol/L (3.4-5.1); Sodium 133 mmol/L (137-145); Total Protein 7.7 g/dL (6.3-8.2)
[2020-09-22] MEDS: MORPHINE 4 MG/ML INJ IV (04:45)
[2020-09-22] MEDS: LORazepam 2 MG/ML INJ 1 MG IV (05:03)
[2020-09-22 05:30] VITALS: BP 150/97; PULSE 87; RESP 16; O2SAT 98
[2020-09-22 06:00] VITALS: BP 142/94; PULSE 70; RESP 16; O2SAT 98
[2020-09-22 06:30] VITALS: BP 131/79; PULSE 77; RESP 16; O2SAT 98
[2020-09-24 10:04] LABS: COVID19 -Nasal RAPID POSITIVE (Negative)
== END 2020-09-22 06:54 | disposition home or self-care (01) ==
PROVIDERS: Emergency Provider Emergency Medicine; PCP Registered Nurse Diabetes Educator
DX: U07.1 COVID-19 (principal); F41.9 Anxiety disorder, unspecified; R10.13 Epigastric pain; R11.2 Nausea with vomiting, unspecified
CPT/HCPCS: 36415; 80053; 83690; 85025; 87635; 96361; 96374; 96375; 99283; 99284; C9113; J2060; J2270; J2765

== ENCOUNTER 2020-09-25 05:35 | Emergency (ER) | payer OTHER, SELFPAY ==
[2020-09-18 08:58] VITALS: BMI 23.7
[2020-09-25] VITALS (9 sets, daily range): BP systolic 160–181; BP diastolic 102–106; PULSE 70–89; RESP 21–22; TEMP 36.4; O2SAT 98–100; BMI 27.8
--- NOTE | 2020-09-25 05:57 | ED.NAVMDI ---
HPI - Nausea/Vomiting/Diarrhea <Salvatore Flores, DO - Last Filed: 09/25/20 17:56> General Chief complaint: Abdominal Pain Stated complaint: vomiting/ pain Time Seen by Provider: 09/25/20 05:35 Source: patient Mode of arrival: Ambulatory Limitations: no limitations History of Present Illness HPI Narrative: 30-year-old male former smoker with recent COVID diagnosis known mental health diagnoses presents for the 4th time with the chief complaint of ongoing persistent nausea vomiting, chest pain and abdominal pain. He has had multiple evaluations and hospitalizations of past 15 days under similar circumstances. He states that his last episodes of vomiting last night about 10:00 p.m.. He is not taking his medications as he cannot keep them. He feels anxious and is starting-shortness of breath again. He denies any runny nose, sore throat. He denies any change of bowel habits. MD complaint: nausea, vomiting and abdominal pain Onset (ago): day(s) Description of Vomiting: food contents Description of Diarrhea: none Associated Abdominal Pain: Yes Location of pain: diffuse Severity: moderate Quality: cramping and aching Relieving factors: none Exacerbating factors: none Associated symptoms: chest pain and loss of appetite Related Data Previous Rx's Medication Instructions Recorded trazodone 100 mg tablet 100 mg PO BEDTIME PRN #90 tab 08/05/20 gabapentin 400 mg capsule 400 mg PO TID PRN #180 cap 08/27/20 escitalopram oxalate 10 mg tablet 20 mg PO DAILY 30 Days #60 tab 09/10/20 hydroxyzine pamoate 50 mg capsule 50 mg PO TID PRN 30 Days #90 cap 09/10/20 lamotrigine 150 mg tablet 300 mg PO DAILY 30 Days #60 tab 09/10/20 lithium carbonate 300 mg capsule 300 mg PO BEDTIME 30 Days #30 cap 09/10/20 hydrocodone-acetaminophen [[place]] 1 tab PO Q4-6H PRN #7 tab 09/15/20 promethazine 25 mg CA Q6H PRN #12 ea 09/22/20 sucralfate [Carafate] 1 g PO QACHS #28 tab 09/22/20 promethazine 25 mg PO Q6H PRN #10 tab 09/25/20 promethazine 25 mg CA Q6H PRN #12 ea 11/20/20 Allergies Allergy/AdvReac Type Severity Reaction Status Date / Time No Known Drug Allergies Allergy Verified 09/25/20 06:08 Review of Systems <Salvatore Flores DO - Last Filed: 09/25/20 17:56> Constitutional Constitutional: Denies chills, Denies fatigue, Denies fever(s), Denies frequent falls, Denies lethargy and Denies weakness Eyes Eyes: Denies change in vision, Denies eye discharge, Denies irritation and Denies loss of vision ENT Ears, Nose, Mouth, and Throat: Denies change in voice, Denies dizziness, Denies neck pain, Denies sore throat and Denies throat swelling Cardiovascular Cardiovascular: Denies chest pain, Denies irregular heart rhythm, Denies lightheadedness, Denies palpitations, Reports dyspnea, Denies dyspnea on exertion and Denies orthopnea Respiratory Respiratory: Reports cough, Reports dyspnea, Denies dyspnea on exertion and Denies wheezing Gastrointestinal Gastrointestinal: Reports abdominal pain, Denies change in bowel habits, Denies diarrhea, Reports nausea and Reports vomiting Musculoskeletal Musculoskeletal: Denies neck pain and Denies numbness Integumentary/Breasts Skin/Breast: Denies pruritus, Denies erythema, Denies rash and Denies wounds Neurologic Neurologic: Denies behavioral changes, Denies confusion, Denies dizziness, Denies frequent falls, Denies loss of vision, Denies numbness and Denies weakness Psychiatric Psychiatric: Reports anxiety, Denies behavioral changes, Denies confusion, Denies depression, Denies homicidal ideation and Denies suicidal ideation Endocrine Endocrine: Denies fatigue, Denies flushing and Denies palpitations Hematologic/Lymphatic Hematologic/Lymphatic: Denies easy bruising Allergic/Immunologic Allergic/Immunologic: Denies urticaria, Denies throat swelling and Denies wheezing Patient History <Salvatore Flores DO - Last Filed: 09/25/20 17:56> Medical History (Updated 09/25/20 @ 09:53 by Frieda Henao DO) Alcohol use disorder Generalized anxiety disorder (~2005) Hip pain History of panic attacks Low back pain Major depressive disorder, recurrent episode, severe Pneumonia due to 2019 novel coronavirus Family History Father Alcoholism Mother Diabetes mellitus Social History household members: family Smoking Status: Former smoker second hand exposure: Yes alcohol intake: current substance use type: marijuana (occassionally to help sleep/ingestible) Smoking Status: Former smoker alcohol intake frequency: 0-2 drinks per day Substance Use Type: marijuana Exam <Salvatore Flores DO - Last Filed: 09/25/20 17:56> Narrative Exam Narrative: GENERAL: [30] year old patient appears stated age. Well-nourished, well-developed patient, in moderate distress, clearly anxious. HEAD: Atraumatic. Normocephalic. EYES: Pupils equal round and reactive. Extraocular motions intact. No scleral icterus. No injection or drainage. ENT: Nose without bleeding, purulent drainage. Throat without erythema, tonsillar hypertrophy or exudate. Airway patent. NECK: Trachea midline. Non tender CARDIOVASCULAR: Regular rate and rhythm without murmurs, gallops, or rubs. RESPIRATORY: Clear to auscultation. Breath sounds equal bilaterally. No wheezes, rales, or rhonchi. GASTROINTESTINAL: Abdomen soft, generalized tenderness, nondistended. EXTREMITIES: No edema or joint tenderness. BACK: Nontender without deformity or crepitance. No flank tenderness. NEURO: AOx3. SKIN: No rash or erythema of visible areas Initial Vital Signs Initial Vital Signs: Vital Signs Temperature 97.6 F 09/25/20 05:55 Pulse Rate 87 09/25/20 05:55 Respiratory Rate 22 09/25/20 05:55 Blood Pressure 181/102 H 09/25/20 05:55 Pulse Oximetry 100 09/25/20 05:55 <Frieda Henao DO - Last Filed: 09/25/20 12:29> Initial Vital Signs Initial Vital Signs: Vital Signs Temperature 97.6 F 09/25/20 05:55 Pulse Rate 87 09/25/20 05:55 Respiratory Rate 22 09/25/20 05:55 Blood Pressure 181/102 H 09/25/20 05:55 Pulse Oximetry 100 09/25/20 05:55 Course <Salvatore Flores DO - Last Filed: 09/25/20 17:56> Orders Ordered: Discontinued Medications Al Hydrox/Mg Hydrox/Simethicone 20 ml/ Lidocaine HCl 15 ml 0 ml PO NOW ONE Stop: 09/25/20 08:56 Last Admin: 09/25/20 09:09 Dose: 35 ml Documented by: ROSELINE Haloperidol (Haloperidol 5 Mg/Ml Vial) 2 mg IV NOW ONE Stop: 09/25/20 07:33 Last Admin: 09/25/20 07:51 Dose: 2 mg Documented by: TONI Sodium Chloride (Normal Saline 0.9%) 1,000 mls @ 1,000 mls/hr IV BOLUS ONE Stop: 09/25/20 06:59 Last Infusion: 09/25/20 07:30 Dose: 0 mls/hr Documented by: Admin: 09/25/20 06:21 Dose: 1,000 mls/hr Documented by: TONI Potassium Chloride 40 meq/ (Sodium Chloride) 520 mls @ 130 mls/hr IV NOW ONE Stop: 09/25/20 10:57 Last Infusion: 09/25/20 10:15 Dose: 130 mls/hr Documented by: ROSELINE Cosigned by: TAMMY Admin: 09/25/20 07:51 Dose: 130 mls/hr Documented by: TONI Cosigned by: TIERA Ketorolac Tromethamine (Ketorolac 60 Mg/2 Ml Vial) 30 mg IV NOW ONE Stop: 09/25/20 08:56 Last Admin: 09/25/20 09:07 Dose: 30 mg Documented by: ROSELINE Metoclopramide HCl (Metoclopramide 10 Mg/2 Ml Inj) 10 mg IV NOW ONE Stop: 09/25/20 06:01 Last Admin: 09/25/20 06:21 Dose: 10 mg Documented by: TONI Ondansetron HCl (Ondansetron 4 Mg/2 Ml Inj) 4 mg IV NOW ONE Stop: 09/25/20 08:56 Last Admin: 09/25/20 09:09 Dose: 4 mg Documented by: ROSELINE Pantoprazole Sodium (Pantoprazole 40 Mg Vial) 40 mg IV NOW ONE Stop: 09/25/20 06:01 Last Admin: 09/25/20 06:21 Dose: 40 mg Documented by: TONI Potassium Chloride (Potassium Chloride 20 Meq Tab) 40 meq PO NOW ONE Stop: 09/25/20 08:56 Last Admin: 09/25/20 09:15 Dose: 40 meq Documented by: ROSELINE Vital Signs Vital signs: Vital Signs - 8 hr 09/25/20 10:04 09/25/20 10:10 Pulse Rate 72 72 Respiratory Rate 21 Blood Pressure 160/106 H 160/106 H Pulse Oximetry 98 98 <Frieda Henao, DO - Last Filed: 09/25/20 12:29> Orders Ordered: Discontinued Medications Al Hydrox/Mg Hydrox/Simethicone 20 ml/ Lidocaine HCl 15 ml 0 ml PO NOW ONE Stop: 09/25/20 08:56 Last Admin: 09/25/20 09:09 Dose: 35 ml Documented by: ROSELINE Haloperidol (Haloperidol 5 Mg/Ml Vial) 2 mg IV NOW ONE Stop: 09/25/20 07:33 Last Admin: 09/25/20 07:51 Dose: 2 mg Documented by: TONI Sodium Chloride (Normal Saline 0.9%) 1,000 mls @ 1,000 mls/hr IV BOLUS ONE Stop: 09/25/20 06:59 Last Infusion: 09/25/20 07:30 Dose: 0 mls/hr Documented by: Admin: 09/25/20 06:21 Dose: 1,000 mls/hr Documented by: TONI Potassium Chloride 40 meq/ (Sodium Chloride) 520 mls @ 130 mls/hr IV NOW ONE Stop: 09/25/20 10:57 Last Infusion: 09/25/20 10:15 Dose: 130 mls/hr Documented by: ROSELINE Cosigned by: TAMMY Admin: 09/25/20 07:51 Dose: 130 mls/hr Documented by: TONI Cosigned by: HGROYERN Ketorolac Tromethamine (Ketorolac 60 Mg/2 Ml Vial) 30 mg IV NOW ONE Stop: 09/25/20 08:56 Last Admin: 09/25/20 09:07 Dose: 30 mg Documented by: ROSELINE Metoclopramide HCl (Metoclopramide 10 Mg/2 Ml Inj) 10 mg IV NOW ONE Stop: 09/25/20 06:01 Last Admin: 09/25/20 06:21 Dose: 10 mg Documented by: TONI Ondansetron HCl (Ondansetron 4 Mg/2 Ml Inj) 4 mg IV NOW ONE Stop: 09/25/20 08:56 Last Admin: 09/25/20 09:09 Dose: 4 mg Documented by: ROSELINE Pantoprazole Sodium (Pantoprazole 40 Mg Vial) 40 mg IV NOW ONE Stop: 09/25/20 06:01 Last Admin: 09/25/20 06:21 Dose: 40 mg Documented by: AUPDIKE Potassium Chloride (Potassium Chloride 20 Meq Tab) 40 meq PO NOW ONE Stop: 09/25/20 08:56 Last Admin: 09/25/20 09:15 Dose: 40 meq Documented by: MYRONANCE Vital Signs Vital signs: Vital Signs - 8 hr 09/25/20 10:04 09/25/20 10:10 Pulse Rate 72 72 Respiratory Rate 21 Blood Pressure 160/106 H 160/106 H Pulse Oximetry 98 98 MDM - Nausea/Vomiting/Diarrhea <Salvatore Flores DO - Last Filed: 09/25/20 17:56> Lab Data Result diagrams: 09/25/20 06:00 09/25/20 06:00 Labs: Lab Results 09/25/20 09/25/20 09/25/20 Range/Units 05:45 06:00 06:00 WBC 14.5 H (4.5-11.0) X10^3/uL RBC 5.31 (4.5-5.9) X10^6/uL Hgb 16.3 (13.5-17.5) g/dL Hct 45.9 (41-53) % MCV 86.4 (80-100) fL MCH 30.7 (26-34) PG MCHC 35.5 (30-36) % RDW 12.4 (11.6-14.8) % Plt Count 379 (150-400) X10^3/uL Neut % (Auto) 79.3 H (50-75) % Lymph % (Auto) 12.2 L (25-40) % [place] % (Auto) 7.5 (3-14) % Eos % (Auto) 0.3 L (2-4) % Baso % (Auto) 0.7 (0-2) % Neut # (Auto) 54943 H (7449-2543) /uL Lymph # (Auto) 1800 (5767-8446) /uL [place] # (Auto) 1100 H (0-900) /uL Eos # (Auto) 0 (0-450) /uL Baso # (Auto) 100 (0-100) /uL D-Dimer 515 H (<230) ng/mL Sodium (137-145) mmol/L Potassium (3.4-5.1) mmol/L Chloride (98-107) mmol/L Carbon Dioxide (22-32) mmol/L BUN (9-20) mg/dL Creatinine (0.66-1.25) mg/dL Estimated GFR (>60) mL/min BUN/Creatinine Ratio (6-22) Glucose (70-100) mg/dL Lactate (0.7-2.1) mmol/L Calcium (8.4-10.2) mg/dL Total Bilirubin (0.2-1.3) mg/dL AST (17-59) IU/L ALT (<50) IU/L Alkaline Phosphatase (38-126) U/L Total Creatine Kinase (55-170) U/L CK-MB (CK-2) (<2.37) ng/mL CK-MB (CK-2) Rel Index (1.5-5.0) % Troponin I (0.01-0.034) ng/mL NT-Pro-B Natriuret Pep (<125) pg/mL Total Protein (6.3-8.2) g/dL Albumin (3.5-5.0) g/dL Globulin (1.7-4.1) g/dL Albumin/Globulin Ratio (1.0-2.8) Lipase (23-300) U/L Procalcitonin (<0.5) ng/mL [place] (0.6-1.2) mmol/L COVID-19 PCR Negative (Negative) 09/25/20 09/25/20 09/25/20 Range/Units 06:00 06:00 06:00 WBC (4.5-11.0) X10^3/uL RBC (4.5-5.9) X10^6/uL Hgb (13.5-17.5) g/dL Hct (41-53) % MCV (80-100) fL MCH (26-34) PG MCHC (30-36) % RDW (11.6-14.8) % Plt Count (150-400) X10^3/uL Neut % (Auto) (50-75) % Lymph % (Auto) (25-40) % [place] % (Auto) (3-14) % Eos % (Auto) (2-4) % Baso % (Auto) (0-2) % Neut # (Auto) (2302-1293) /uL Lymph # (Auto) (6358-4601) /uL [place] # (Auto) (0-900) /uL Eos # (Auto) (0-450) /uL Baso # (Auto) (0-100) /uL D-Dimer (<230) ng/mL Sodium 132 L (137-145) mmol/L Potassium 2.9 L (3.4-5.1) mmol/L Chloride 96 L (98-107) mmol/L Carbon Dioxide 27 (22-32) mmol/L BUN 10 (9-20) mg/dL Creatinine 0.74 (0.66-1.25) mg/dL Estimated GFR > 60.0 (>60) mL/min BUN/Creatinine Ratio 13.5 (6-22) Glucose 122 H (70-100) mg/dL Lactate 1.9 (0.7-2.1) mmol/L Calcium 10.0 (8.4-10.2) mg/dL Total Bilirubin 0.9 (0.2-1.3) mg/dL AST 66 H (17-59) IU/L ALT 28 (<50) IU/L Alkaline Phosphatase 94 (38-126) U/L Total Creatine Kinase 582 H D (55-170) U/L CK-MB (CK-2) 9.40 H (<2.37) ng/mL CK-MB (CK-2) Rel Index 1.6 (1.5-5.0) % Troponin I < 0.012 (0.01-0.034) ng/mL NT-Pro-B Natriuret Pep 17 (<125) pg/mL Total Protein 8.1 (6.3-8.2) g/dL Albumin 4.8 (3.5-5.0) g/dL Globulin 3.3 (1.7-4.1) g/dL Albumin/Globulin Ratio 1.5 (1.0-2.8) Lipase 243 (23-300) U/L Procalcitonin (<0.5) ng/mL [place] (0.6-1.2) mmol/L COVID-19 PCR (Negative) 09/25/20 09/25/20 Range/Units 06:00 06:00 WBC (4.5-11.0) X10^3/uL RBC (4.5-5.9) X10^6/uL Hgb (13.5-17.5) g/dL Hct (41-53) % MCV (80-100) fL MCH (26-34) PG MCHC (30-36) % RDW (11.6-14.8) % Plt Count (150-400) X10^3/uL Neut % (Auto) (50-75) % Lymph % (Auto) (25-40) % [place] % (Auto) (3-14) % Eos % (Auto) (2-4) % Baso % (Auto) (0-2) % Neut # (Auto) (2688-3020) /uL Lymph # (Auto) (6446-0370) /uL [place] # (Auto) (0-900) /uL Eos # (Auto) (0-450) /uL Baso # (Auto) (0-100) /uL D-Dimer (<230) ng/mL Sodium (137-145) mmol/L Potassium (3.4-5.1) mmol/L Chloride (98-107) mmol/L Carbon Dioxide (22-32) mmol/L BUN (9-20) mg/dL Creatinine (0.66-1.25) mg/dL Estimated GFR (>60) mL/min BUN/Creatinine Ratio (6-22) Glucose (70-100) mg/dL Lactate (0.7-2.1) mmol/L Calcium (8.4-10.2) mg/dL Total Bilirubin (0.2-1.3) mg/dL AST (17-59) IU/L ALT (<50) IU/L Alkaline Phosphatase (38-126) U/L Total Creatine Kinase (55-170) U/L CK-MB (CK-2) (<2.37) ng/mL CK-MB (CK-2) Rel Index (1.5-5.0) % Troponin I (0.01-0.034) ng/mL NT-Pro-B Natriuret Pep (<125) pg/mL Total Protein (6.3-8.2) g/dL Albumin (3.5-5.0) g/dL Globulin (1.7-4.1) g/dL Albumin/Globulin Ratio (1.0-2.8) Lipase (23-300) U/L Procalcitonin < 0.05 (<0.5) ng/mL [place] < 0.2 L (0.6-1.2) mmol/L COVID-19 PCR (Negative) Urine Dip Bedside Urine Glucose Negative Bedside Urine Bilirubin - Negative Bedside Urine Ketone ++ 40 Urine Specific [place] 1.015 Bedside Urine Occult Blood - Negative Bedside Urine pH 8.0 Bedside Urine Protein + 30 Bedside Urine Urobilinogen - Negative Bedside Urine Nitrite - Negative Bedside Urine Leukocytes - Negative Esterase <Frieda Henao, DO - Last Filed: 09/25/20 12:29> Lab Data Attestation: I reviewed the patient's lab results. Labs: Lab Results 09/25/20 09/25/20 09/25/20 Range/Units 05:45 06:00 06:00 WBC 14.5 H (4.5-11.0) X10^3/uL RBC 5.31 (4.5-5.9) X10^6/uL Hgb 16.3 (13.5-17.5) g/dL Hct 45.9 (41-53) % MCV 86.4 (80-100) fL MCH 30.7 (26-34) PG MCHC 35.5 (30-36) % RDW 12.4 (11.6-14.8) % Plt Count 379 (150-400) X10^3/uL Neut % (Auto) 79.3 H (50-75) % Lymph % (Auto) 12.2 L (25-40) % [place] % (Auto) 7.5 (3-14) % Eos % (Auto) 0.3 L (2-4) % Baso % (Auto) 0.7 (0-2) % Neut # (Auto) 15055 H (6581-9274) /uL Lymph # (Auto) 1800 (6673-1691) /uL [place] # (Auto) 1100 H (0-900) /uL Eos # (Auto) 0 (0-450) /uL Baso # (Auto) 100 (0-100) /uL D-Dimer 515 H (<230) ng/mL Sodium (137-145) mmol/L Potassium (3.4-5.1) mmol/L Chloride (98-107) mmol/L Carbon Dioxide (22-32) mmol/L BUN (9-20) mg/dL Creatinine (0.66-1.25) mg/dL Estimated GFR (>60) mL/min BUN/Creatinine Ratio (6-22) Glucose (70-100) mg/dL Lactate (0.7-2.1) mmol/L Calcium (8.4-10.2) mg/dL Total Bilirubin (0.2-1.3) mg/dL AST (17-59) IU/L ALT (<50) IU/L Alkaline Phosphatase (38-126) U/L Total Creatine Kinase (55-170) U/L CK-MB (CK-2) (<2.37) ng/mL CK-MB (CK-2) Rel Index (1.5-5.0) % Troponin I (0.01-0.034) ng/mL NT-Pro-B Natriuret Pep (<125) pg/mL Total Protein (6.3-8.2) g/dL Albumin (3.5-5.0) g/dL Globulin (1.7-4.1) g/dL Albumin/Globulin Ratio (1.0-2.8) Lipase (23-300) U/L Procalcitonin (<0.5) ng/mL [place] (0.6-1.2) mmol/L COVID-19 PCR Negative (Negative) 09/25/20 09/25/20 09/25/20 Range/Units 06:00 06:00 06:00 WBC (4.5-11.0) X10^3/uL RBC (4.5-5.9) X10^6/uL Hgb (13.5-17.5) g/dL Hct (41-53) % MCV (80-100) fL MCH (26-34) PG MCHC (30-36) % RDW (11.6-14.8) % Plt Count (150-400) X10^3/uL Neut % (Auto) (50-75) % Lymph % (Auto) (25-40) % [place] % (Auto) (3-14) % Eos % (Auto) (2-4) % Baso % (Auto) (0-2) % Neut # (Auto) (4828-6554) /uL Lymph # (Auto) (7283-5018) /uL [place] # (Auto) (0-900) /uL Eos # (Auto) (0-450) /uL Baso # (Auto) (0-100) /uL D-Dimer (<230) ng/mL Sodium 132 L (137-145) mmol/L Potassium 2.9 L (3.4-5.1) mmol/L Chloride 96 L (98-107) mmol/L Carbon Dioxide 27 (22-32) mmol/L BUN 10 (9-20) mg/dL Creatinine 0.74 (0.66-1.25) mg/dL Estimated GFR > 60.0 (>60) mL/min BUN/Creatinine Ratio 13.5 (6-22) Glucose 122 H (70-100) mg/dL Lactate 1.9 (0.7-2.1) mmol/L Calcium 10.0 (8.4-10.2) mg/dL Total Bilirubin 0.9 (0.2-1.3) mg/dL AST 66 H (17-59) IU/L ALT 28 (<50) IU/L Alkaline Phosphatase 94 (38-126) U/L Total Creatine Kinase 582 H D (55-170) U/L CK-MB (CK-2) 9.40 H (<2.37) ng/mL CK-MB (CK-2) Rel Index 1.6 (1.5-5.0) % Troponin I < 0.012 (0.01-0.034) ng/mL NT-Pro-B Natriuret Pep 17 (<125) pg/mL Total Protein 8.1 (6.3-8.2) g/dL Albumin 4.8 (3.5-5.0) g/dL Globulin 3.3 (1.7-4.1) g/dL Albumin/Globulin Ratio 1.5 (1.0-2.8) Lipase 243 (23-300) U/L Procalcitonin (<0.5) ng/mL [place] (0.6-1.2) mmol/L COVID-19 PCR (Negative) 09/25/20 09/25/20 Range/Units 06:00 06:00 WBC (4.5-11.0) X10^3/uL RBC (4.5-5.9) X10^6/uL Hgb (13.5-17.5) g/dL Hct (41-53) % MCV (80-100) fL MCH (26-34) PG MCHC (30-36) % RDW (11.6-14.8) % Plt Count (150-400) X10^3/uL Neut % (Auto) (50-75) % Lymph % (Auto) (25-40) % [place] % (Auto) (3-14) % Eos % (Auto) (2-4) % Baso % (Auto) (0-2) % Neut # (Auto) (1943-9661) /uL Lymph # (Auto) (0017-4023) /uL [place] # (Auto) (0-900) /uL Eos # (Auto) (0-450) /uL Baso # (Auto) (0-100) /uL D-Dimer (<230) ng/mL Sodium (137-145) mmol/L Potassium (3.4-5.1) mmol/L Chloride (98-107) mmol/L Carbon Dioxide (22-32) mmol/L BUN (9-20) mg/dL Creatinine (0.66-1.25) mg/dL Estimated GFR (>60) mL/min BUN/Creatinine Ratio (6-22) Glucose (70-100) mg/dL Lactate (0.7-2.1) mmol/L Calcium (8.4-10.2) mg/dL Total Bilirubin (0.2-1.3) mg/dL AST (17-59) IU/L ALT (<50) IU/L Alkaline Phosphatase (38-126) U/L Total Creatine Kinase (55-170) U/L CK-MB (CK-2) (<2.37) ng/mL CK-MB (CK-2) Rel Index (1.5-5.0) % Troponin I (0.01-0.034) ng/mL NT-Pro-B Natriuret Pep (<125) pg/mL Total Protein (6.3-8.2) g/dL Albumin (3.5-5.0) g/dL Globulin (1.7-4.1) g/dL Albumin/Globulin Ratio (1.0-2.8) Lipase (23-300) U/L Procalcitonin < 0.05 (<0.5) ng/mL [place] < 0.2 L (0.6-1.2) mmol/L COVID-19 PCR (Negative) Urine Dip Bedside Urine Glucose Negative Bedside Urine Bilirubin - Negative Bedside Urine Ketone ++ 40 Urine Specific [place] 1.015 Bedside Urine Occult Blood - Negative Bedside Urine pH 8.0 Bedside Urine Protein + 30 Bedside Urine Urobilinogen - Negative Bedside Urine Nitrite - Negative Bedside Urine Leukocytes - Negative Esterase Imaging Data CT scan - abdomen/pelvis: Radiologist's Impression: PROCEDURE: CT CHEST ABD PEL W CON INDICATIONS: severe abdominal pain, chest pain, N/V TECHNIQUE: After the administration of intravenous contrast, 5 mm thick sections acquired from the lung apices to the symphysis. 2.5 mm thick coronal and sagittal reformats were acquired. Additional 7 mm thick coronal maximum intensity projection (MIP) reformats acquired through the lungs. Optional 10-minute delayed imaging may be performed from the kidneys to the bladder. For radiation dose reduction, the following was used: automated exposure control, adjustment of mA and/or kV according to patient size. COMPARISON: [facility], CT, CT ANGIO CHEST PE PROTOCOL, 09/15/2020, 7:38. [facility], CT, CT ABDOMEN PELVIS W CON, 09/18/2020, 10:44. FINDINGS: Image quality: Excellent. CHEST: Lungs: There is near-complete resolution of bibasilar patchy consolidation seen on the recent CT with a few residual small areas of indistinct ground-glass opacities. No new consolidation. No pneumothorax or hemothorax. Central and peripheral airways appear patent and normal in caliber. Mediastinum: There is a small amount of residual thymic tissue in the anterior mediastinum. Heart size is normal. No pericardial effusion. Thoracic aorta and pulmonary arteries demonstrate normal size and enhancement. No mediastinal or hilar adenopathy. Esophagus is normal in caliber. No hiatal hernia. Chest wall: No axillary or supraclavicular adenopathy. ABDOMEN: Solid organs: Evaluation of the liver demonstrates no focal hepatic lesions. The gallbladder appears within normal limits without calcified gallstones. Biliary system is non-dilated. Pancreas enhances normally. No peripancreatic fat stranding or fluid collections. No pancreatic duct dilatation. The spleen is normal in size. No adrenal nodules. Kidneys demonstrate no hydronephrosis. Peritoneum and bowel: No free fluid or air. Small bowel loops demonstrate normal wall thickness and caliber. The appendix is normal in appearance. There is mild segmental wall thickening of the transverse, descending, and sigmoid colon consistent with a nonspecific colitis. Nodes and vessels: No retroperitoneal or mesenteric adenopathy. Aorta and inferior vena cava are normal in size and enhancement. Miscellaneous: No ventral hernias. PELVIS: Genitourinary: Bladder wall thickness is normal. Miscellaneous: No inguinal hernias or adenopathy. Bones: Pelvic ring and hip joints appear intact. No vertebral compression fractures. IMPRESSION: 1. Segmental wall thickening of the transverse, descending, and sigmoid colon consistent with a nonspecific colitis, likely infectious or inflammatory. 2. Near-complete resolution of previously visualized bibasilar lower lobe pneumonia. Dictated by: Mauro Maxwell M.D. on 09/25/2020 at 8:36 Approved by: Mauro Maxwell M.D. on 09/25/2020 at 8:44 MDM Narrative Medical decision making narrative: Patient signed out to me by Dr. Flores of seen and evaluated patient myself. He continues to feel quite nauseous although he has not vomited in the ED. He has some epigastric pain. He clearly has been vomiting at home his potassium was 2.9. He says he was given suppositories which has not helped at home. He does not want to come back to the ER but he feels like he cannot keep anything down. CT shows colitis. PATIENT IS GIVEN GI COCKTAIL, TORADOL AND ZOFRAN HE HAS NOT BEEN VOMITING IN THE ED he overall continues to have pain but is requesting to go home. He is tolerating some ice chips. He is requesting for more Phenergan suppositories. Discharge Plan Departure Patient Disposition: Home Clinical Impression: Gastroenteritis, Acute hypokalemia Instructions: DI for Viral Gastroenteritis -- Adult Activity Restrictions/Additional Instructions: 1) You have been diagnosed with gastroenteritis and low potassium 2) What to do: Drink frequent but small amounts of fluids. I recommend Gatorade or a Gatorade-like product, as it has small amounts of sugar and salts that improve fluid retention. 3) Take medications as directed--> [facility] [place] Phenergan 25 mg every 6 hours if needed for nausea or vomiting may take by mouth or suppository 4) Follow up with your primary care provider in 2-3 days [and follow up with ortho, urology etc] 5) Return to ER if you should have any new or worsening symptoms such as, unable to hold down fluids despite use of anti-nausea medications and the small volume oral rehydration strategy. Prescriptions: New promethazine 25 mg tablet 25 mg PO Q6H PRN (Reason: nausea and vomiting) Qty: 10 RF: 0 promethazine 25 mg suppository 25 mg CA Q6H PRN (Reason: nausea and vomiting) Qty: 12 RF: 0 No Action trazodone 100 mg tablet 100 mg PO BEDTIME PRN (Reason: sleep) Qty: 90 RF: 1 escitalopram oxalate 10 mg tablet 20 mg PO DAILY 30 Days Qty: 60 RF: 1 lamotrigine 150 mg tablet 300 mg PO DAILY 30 Days Qty: 60 RF: 1 hydroxyzine pamoate 50 mg capsule 50 mg PO TID PRN (Reason: anxiety) 30 Days Qty: 90 RF: 0 lithium carbonate 300 mg capsule 300 mg PO BEDTIME 30 Days Qty: 30 RF: 0 gabapentin 400 mg capsule 400 mg PO TID PRN (Reason: anxiety sleep) Qty: 180 RF: 0 hydrocodone-acetaminophen [[place]] 5-325 mg tablet 1 tab PO Q4-6H PRN (Reason: pain) Qty: 7 RF: 0 promethazine 25 mg suppository 25 mg CA Q6H PRN (Reason: nausea and vomiting) Qty: 12 RF: 0 sucralfate [Carafate] 1 gram tablet 1 g PO QACHS Qty: 28 RF: 0 Referrals: Marty Doyle ARNP [Primary Care Provider] -
[2020-09-25 06:14] LABS: Add Manual Diff / Slide Review NO; Basophils Absolute Auto 100 /uL (0-100); Basophils Percent Auto 0.7 % (0-2); Eosinophils Absolute Auto 0 /uL (0-450); Eosinophils Percent Auto 0.3 % (2-4); Hematocrit 45.9 % (41-53); Hemoglobin 16.3 g/dL (13.5-17.5); Lymphocytes Absolute Auto 1800 /uL (1100-4500); Lymphocytes Percent Auto 12.2 % (25-40); Mean Corpuscular HGB Conc 35.5 % (30-36); Mean Corpuscular Hemoglobin 30.7 PG (26-34); Mean Corpuscular Volume 86.4 fL (80-100); Monocytes Absolute Auto 1100 /uL (0-900); Monocytes Percent Auto 7.5 % (3-14); Neutrophils Absolute Auto 11500 /uL (1500-7000); Neutrophils Percent Auto 79.3 % (50-75); Platelet Count 379 X10^3/uL (150-400); Red Blood Cell Count 5.31 X10^6/uL (4.5-5.9); Red Cell Distribution Width 12.4 % (11.6-14.8); White Blood Cell Count 14.5 X10^3/uL (4.5-11.0)
[2020-09-25] MEDS: PANTOPRAZOLE 40 MG VIAL IV (06:21)
[2020-09-25] MEDS: SODIUM CHLORIDE 0.9% 1,000 ML 1000 ML IV (06:21)
[2020-09-25] MEDS: METOCLOPRAMIDE 10 MG/2 ML INJ IV (06:21)
[2020-09-25 06:23] LABS: Lactate (Lactic Acid) 1.9 mmol/L (0.7-2.1)
[2020-09-25 06:39] LABS: D Dimer 515 ng/mL (<230)
[2020-09-25 06:43] LABS: COVID19 -Nasal RAPID Negative (Negative)
[2020-09-25 06:45] LABS: Lithium < 0.2 mmol/L (0.6-1.2)
[2020-09-25 06:46] LABS: Alanine Aminotransferase 28 IU/L (<50); Albumin 4.8 g/dL (3.5-5.0); Albumin Globulin Ratio 1.5 (1.0-2.8); Alkaline Phosphatase 94 U/L (38-126); Aspartate Aminotransferase 66 IU/L (17-59); BUN Creatinine Ratio 13.5 (6-22); Bilirubin Total 0.9 mg/dL (0.2-1.3); Blood Urea Nitrogen 10 mg/dL (9-20); Carbon Dioxide 27 mmol/L (22-32); Chloride 96 mmol/L (98-107); Estimated Glomerular Filt Rate > 60.0 mL/min (>60); Globulin 3.3 g/dL (1.7-4.1); Glucose 122 mg/dL (70-100); HEMOLYSIS < 15 (0-50); Lipase 243 U/L (23-300); Potassium 2.9 mmol/L (3.4-5.1); Sodium 132 mmol/L (137-145); Total Protein 8.1 g/dL (6.3-8.2)
[2020-09-25 06:47] LABS: Creatine Kinase 582 U/L (55-170)
[2020-09-25 06:55] LABS: NT-proBNP (BNP-Adult 18+) 17 pg/mL (<125)
[2020-09-25 06:58] LABS: Troponin I < 0.012 ng/mL (0.01-0.034)
[2020-09-25 07:02] LABS: CKMB % Relative Index 1.6 % (1.5-5.0)
[2020-09-25 07:13] LABS: Procalcitonin < 0.05 ng/mL (<0.5)
--- NOTE | 2020-09-25 07:45 | DI.CT.S_ITS ---
PROCEDURE: CT CHEST ABD PEL W CON INDICATIONS: severe abdominal pain, chest pain, N/V TECHNIQUE: After the administration of intravenous contrast, 5 mm thick sections acquired from the lung apices to the symphysis. 2.5 mm thick coronal and sagittal reformats were acquired. Additional 7 mm thick coronal maximum intensity projection (MIP) reformats acquired through the lungs. Optional 10-minute delayed imaging may be performed from the kidneys to the bladder. For radiation dose reduction, the following was used: automated exposure control, adjustment of mA and/or kV according to patient size. COMPARISON: [facility], CT, CT ANGIO CHEST PE PROTOCOL, 09/15/2020, 7:38. [facility], CT, CT ABDOMEN PELVIS W CON, 09/18/2020, 10:44. FINDINGS: Image quality: Excellent. CHEST: Lungs: There is near-complete resolution of bibasilar patchy consolidation seen on the recent CT with a few residual small areas of indistinct ground-glass opacities. No new consolidation. No pneumothorax or hemothorax. Central and peripheral airways appear patent and normal in caliber. Mediastinum: There is a small amount of residual thymic tissue in the anterior mediastinum. Heart size is normal. No pericardial effusion. Thoracic aorta and pulmonary arteries demonstrate normal size and enhancement. No mediastinal or hilar adenopathy. Esophagus is normal in caliber. No hiatal hernia. Chest wall: No axillary or supraclavicular adenopathy. ABDOMEN: Solid organs: Evaluation of the liver demonstrates no focal hepatic lesions. The gallbladder appears within normal limits without calcified gallstones. Biliary system is non-dilated. Pancreas enhances normally. No peripancreatic fat stranding or fluid collections. No pancreatic duct dilatation. The spleen is normal in size. No adrenal nodules. Kidneys demonstrate no hydronephrosis. Peritoneum and bowel: No free fluid or air. Small bowel loops demonstrate normal wall thickness and caliber. The appendix is normal in appearance. There is mild segmental wall thickening of the transverse, descending, and sigmoid colon consistent with a nonspecific colitis. Nodes and vessels: No retroperitoneal or mesenteric adenopathy. Aorta and inferior vena cava are normal in size and enhancement. Miscellaneous: No ventral hernias. PELVIS: Genitourinary: Bladder wall thickness is normal. Miscellaneous: No inguinal hernias or adenopathy. Bones: Pelvic ring and hip joints appear intact. No vertebral compression fractures. IMPRESSION: 1. Segmental wall thickening of the transverse, descending, and sigmoid colon consistent with a nonspecific colitis, likely infectious or inflammatory. 2. Near-complete resolution of previously visualized bibasilar lower lobe pneumonia. Dictated by: Mauro Maxwell M.D. on 09/25/2020 at 8:36 Approved by: Maruo Maxwell M.D. on 09/25/2020 at 8:44
[2020-09-25] MEDS: POTASSIUM CHLORIDE 40 MEQ in SODIUM CHLORIDE 0.9% 500 ML 130 ML IV (07:51)
[2020-09-25] MEDS: HALOPERIDOL 5 MG/ML VIAL 2 MG IV (07:51)
[2020-09-25] MEDS: KETOROLAC 60 MG/2 ML VIAL 30 MG IV (09:07)
[2020-09-25] MEDS: MAG HYDROX/ALUMINUM/SIMETH SUS 20 ML, LIDOCAINE VISCOUS 2% 15 ML PO (09:09)
[2020-09-25] MEDS: ONDANSETRON 4 MG/2 ML INJ IV (09:09)
[2020-09-25] MEDS: POTASSIUM CHLORIDE 20 MEQ TAB 40 MEQ PO (09:15)
== END 2020-09-25 10:10 | disposition home or self-care (01) ==
PROVIDERS: Emergency Medicine; Emergency Provider Emergency Medicine; PCP Registered Nurse Diabetes Educator
DX: K52.9 Noninfective gastroenteritis and colitis, unspecified (principal); E87.6 Hypokalemia; R07.9 Chest pain, unspecified; R10.9 Unspecified abdominal pain; R11.2 Nausea with vomiting, unspecified
CPT/HCPCS: 36415; 71260; 74177; 80053; 80178; 81003; 82550; 82553; 83605; 83690; 83880; 84145; 84484; 85025; 85379; 87635; 96361; 96365; 96366; 96375; 99283; 99284; C9113; J1630; J1885; J2405; J2765; J3480; Q9967

== ENCOUNTER → 2020-11-24 17:11 | Outpatient (CLI) | payer OTHER, SELFPAY ==
[2020-09-18 08:58] VITALS: BMI 23.7
[2020-11-24 17:54] LABS: Add Manual Diff / Slide Review NO; Basophils Absolute Auto 0 /uL (0-100); Basophils Percent Auto 0.3 % (0-2); Eosinophils Absolute Auto 0 /uL (0-450); Eosinophils Percent Auto 0.1 % (2-4); Hematocrit 46.1 % (41-53); Hemoglobin 16.5 g/dL (13.5-17.5); Lymphocytes Absolute Auto 1700 /uL (1100-4500); Lymphocytes Percent Auto 17.7 % (25-40); Mean Corpuscular HGB Conc 35.9 % (30-36); Mean Corpuscular Hemoglobin 29.8 PG (26-34); Monocytes Absolute Auto 500 /uL (0-900); Monocytes Percent Auto 5.1 % (3-14); Neutrophils Absolute Auto 7600 /uL (1500-7000); Neutrophils Percent Auto 76.8 % (50-75); Platelet Count 393 X10^3/uL (150-400); Red Blood Cell Count 5.55 X10^6/uL (4.5-5.9); Red Cell Distribution Width 12.8 % (11.6-14.8); White Blood Cell Count 9.8 X10^3/uL (4.5-11.0)
[2020-11-24 18:11] LABS: Alanine Aminotransferase 21 IU/L (<50); Albumin 5.1 g/dL (3.5-5.0); Albumin Globulin Ratio 1.6 (1.0-2.8); Alkaline Phosphatase 81 U/L (38-126); Amylase 132 U/L (30-110); Aspartate Aminotransferase 50 IU/L (17-59); BUN Creatinine Ratio 10.8 (6-22); Blood Urea Nitrogen 8 mg/dL (9-20); Calcium 9.9 mg/dL (8.4-10.2); Chloride 78 mmol/L (98-107); Estimated Glomerular Filt Rate > 60.0 mL/min (>60); Globulin 3.1 g/dL (1.7-4.1); Glucose 116 mg/dL (70-100); Lipase 300 U/L (23-300); Potassium 2.9 mmol/L (3.4-5.1); Sodium 129 mmol/L (137-145); Total Protein 8.2 g/dL (6.3-8.2)
[2020-11-24 18:12] LABS: Magnesium 2.2 mg/dL (1.6-2.3)
[2020-11-24 18:18] LABS: HEMOLYSIS 19 (0-50)
[2020-11-24 18:30] LABS: Carbon Dioxide 45 mmol/L (22-32)
== END ==
PROVIDERS: PCP Registered Nurse Diabetes Educator; Referring Provider Nurse Practitioner Family; Visit Provider Nurse Practitioner Family
DX: R11.2 Nausea with vomiting, unspecified (principal)
CPT/HCPCS: 36415; 80053; 82150; 83690; 83735; 85025

== ENCOUNTER 2020-11-24 18:54 | Emergency (ER) | payer OTHER, SELFPAY ==
[2020-09-18 08:58] VITALS: BMI 23.7
[2020-11-24] VITALS (12 sets, daily range): BP systolic 176–197; BP diastolic 113–126; PULSE 73–91; RESP 10–61; TEMP 37.2; O2SAT 95–100
--- NOTE | 2020-11-24 19:30 | ED_ITS ---
HPI - Nausea/Vomiting/Diarrhea General Chief complaint: Nausea/Vomiting/Diarrhea Stated complaint: ABNORMAL LABS TO GET FLUIDS Time Seen by Provider: 11/24/20 19:26 Source: patient Mode of arrival: Ambulatory Limitations: no limitations History of Present Illness HPI Narrative: The patient is referred to the ER from walk-in clinic due to hypokalemia. He is on multiple medications for anxiety, his medications are unchanged. He had COVID-19 about 3 months ago, from which he has recovered. He has no headache, no sore throat, no fever. Has no respiratory symptoms. However, since that time, he has had recurrent nausea and vomiting. He has no abdominal pain. He was seen to walking clinic in noted to have a sodium of 129, potassium 2.9, his creatinine is elevated. He has no chronic GI or issues. He has normal urine output. He has no medical issues other than his recent COVID 19 infection and his history of anxiety. Related Data Home Medications Medication Instructions Recorded Confirmed propranolol 10 mg tablet 10 mg PO TID 10/15/20 10/15/20 Previous Rx's Medication Instructions Recorded trazodone 100 mg tablet 100 mg PO BEDTIME PRN #90 tab 08/05/20 lamotrigine 150 mg tablet 300 mg PO DAILY 30 Days #60 tab 09/10/20 guanfacine 1 mg tablet 1 mg PO BEDTIME #30 tab 10/15/20 guanfacine 3 mg tablet,extended 3 mg PO QPM #30 tab 10/15/20 release 24 hr escitalopram oxalate 10 mg tablet 20 mg PO DAILY 30 Days #60 tab 11/10/20 gabapentin 400 mg capsule 400 mg PO TID PRN #180 cap 11/17/20 metoclopramide HCl 5 mg tablet 5 mg PO QACHS PRN #14 tab 11/24/20 promethazine 25 mg rectal 25 mg DE Q4-6H PRN #12 ea 11/24/20 suppository sucralfate 100 mg/mL oral 10 ml PO QACHS #200 ml 11/24/20 suspension lisinopril 5 mg PO DAILY #60 tab 11/25/20 metoclopramide HCl [Reglan] 10 mg PO Q8HR PRN #60 tab 11/25/20 Allergies Allergy/AdvReac Type Severity Reaction Status Date / Time No Known Drug Allergies Allergy Verified 10/15/20 16:09 Patient History Medical History (Updated 11/25/20 @ 03:29 by Surinder Mcallister MD) Alcohol use disorder Generalized anxiety disorder (~2006) Hip pain History of panic attacks Low back pain Major depressive disorder, recurrent episode, severe Pneumonia due to 2019 novel coronavirus Family History Father Alcoholism Mother Diabetes mellitus Social History household members: family Smoking Status: Former smoker second hand exposure: Yes alcohol intake: current substance use type: marijuana (occassionally to help sleep/ingestible) Smoking Status: Former smoker alcohol intake frequency: 0-2 drinks per day Substance Use Type: marijuana Exam Initial Vital Signs Initial Vital Signs: Vital Signs Temperature 99.0 F 11/24/20 19:14 Pulse Rate 74 11/24/20 19:14 Respiratory Rate 22 11/24/20 19:14 Blood Pressure 179/126 H 11/24/20 19:14 Pulse Oximetry 100 11/24/20 19:14 Course Course Course Narrative: The patient presented with significant hyponatremia, and hypokalemia. He was IV hydrated with normal saline. Supplemental potassium was given. He had hypercapnia a presentation. He has no respiratory issues. Electrolytes improved prior to departure. He was initially given Zofran for the nausea vomiting. He vomited once again after receiving the Zofran. He did much better after receiving IV Reglan. He is tolerating crackers and fluids prior to departure. It is noted the is hypertensive, not improvement time. He was eventually given lisinopril. His systolic pressure improved to 138 prior to discharge. A TSH is slightly low, his T4 slightly elevated. This requires further evaluation. Orders Ordered: ED Orders 11/24/20 19:22 C-Reactive Protein Quant Stat Complete Blood Count AUTO DIFF Stat Comprehensive Metabolic Panel Stat Lipase Stat Thyroid Stimulating Hormone Stat 11/24/20 22:20 Basic Metabolic Panel Stat Creatine Kinase Stat Magnesium Stat Phosphorous Stat 11/24/20 23:01 Arterial Blood Gas Stat 11/25/20 00:09 Urine Drug Screen, Rapid Stat 11/25/20 00:20 T4 Total Thyroxine Stat Discontinued Medications Hydralazine HCl (Hydralazine 20 Mg/Ml Vial) 10 mg IV NOW ONE Stop: 11/25/20 01:53 Last Admin: 11/25/20 02:16 Dose: Not Given Documented by: KEILA Sodium Chloride (Normal Saline 0.9%) 1,000 mls @ 1,000 mls/hr IV BOLUS ONE Stop: 11/24/20 20:26 Last Infusion: 11/24/20 22:00 Dose: 0 mls/hr Documented by: Admin: 11/24/20 19:33 Dose: 1,000 mls/hr Documented by: KELIA Potassium Chloride 20 meq/ (Sodium Chloride) 260 mls @ 130 mls/hr IV NOW ONE Stop: 11/24/20 21:28 Last Infusion: 11/24/20 22:00 Dose: 0 mls/hr Documented by: KEILA Cosigned by: LAI Admin: 11/24/20 19:43 Dose: 130 mls/hr Documented by: KEILA Cosigned by: EMILY Sodium Chloride (Normal Saline 0.9%) 1,000 mls @ 1,000 mls/hr IV BOLUS ONE Stop: 11/25/20 00:00 Last Infusion: 11/25/20 00:32 Dose: 0 mls/hr Documented by: Admin: 11/24/20 23:17 Dose: 1,000 mls/hr Documented by: KEILA Lisinopril (Lisinopril 5 Mg Tablet) 5 mg PO NOW ONE Stop: 11/25/20 02:00 Last Admin: 11/25/20 02:11 Dose: 5 mg Documented by: ESTEFANIA Metoclopramide HCl (Metoclopramide 10 Mg/2 Ml Inj) 10 mg IV NOW ONE Stop: 11/24/20 22:17 Last Admin: 11/24/20 22:19 Dose: 10 mg Documented by: KEILA Ondansetron HCl (Ondansetron 4 Mg/2 Ml Inj) 4 mg IV NOW ONE Stop: 11/24/20 19:28 Last Admin: 11/24/20 19:34 Dose: 4 mg Documented by: KEILA Potassium Chloride (Potassium Chloride 20 Meq/15 Ml Udc) 20 meq PO NOW ONE Stop: 11/24/20 19:29 Last Admin: 11/24/20 19:36 Dose: 20 meq Documented by: KEILA Vital Signs Vital signs: Vital Signs - 8 hr 11/24/20 20:00 11/24/20 20:30 11/24/20 21:00 Pulse Rate 73 77 80 Respiratory Rate 10 L 20 22 Blood Pressure 184/119 H 176/120 H Pulse Oximetry 95 100 11/24/20 21:30 11/24/20 22:00 11/24/20 22:30 Pulse Rate 77 79 91 H Respiratory Rate 15 29 H 22 Blood Pressure Pulse Oximetry 11/24/20 22:42 11/24/20 22:44 11/24/20 23:00 Pulse Rate 78 78 84 Respiratory Rate 12 18 10 L Blood Pressure 197/113 H Pulse Oximetry 11/24/20 23:30 11/25/20 00:00 11/25/20 00:30 Pulse Rate 90 89 81 Respiratory Rate 61 H 30 H 25 H Blood Pressure Pulse Oximetry 100 100 11/25/20 01:00 11/25/20 01:30 11/25/20 01:54 Pulse Rate 79 75 83 Respiratory Rate 8 L 15 24 Blood Pressure 162/108 H Pulse Oximetry 96 99 100 11/25/20 02:00 11/25/20 02:30 11/25/20 02:51 Pulse Rate 84 80 86 Respiratory Rate 34 H 7 L 19 Blood Pressure 138/83 Pulse Oximetry 97 95 98 MDM - Nausea/Vomiting/Diarrhea Lab Data Result diagrams: 11/24/20 19:22 11/24/20 22:20 Labs: Lab Results 11/24/20 11/24/20 11/24/20 Range/Units 19:22 19:22 19:22 WBC 10.7 (4.5-11.0) X10^3/uL RBC 5.38 (4.5-5.9) X10^6/uL Hgb 16.0 (13.5-17.5) g/dL Hct 44.8 (41-53) % MCV 83.2 (80-100) fL MCH 29.7 (26-34) PG MCHC 35.7 (30-36) % RDW 12.2 (11.6-14.8) % Plt Count 346 (150-400) X10^3/uL Neut % (Auto) 67.8 (50-75) % Lymph % (Auto) 25.8 (25-40) % [place] % (Auto) 5.9 (3-14) % Eos % (Auto) 0.1 L (2-4) % Baso % (Auto) 0.4 (0-2) % Neut # (Auto) 7200 H (8345-7670) /uL Lymph # (Auto) 2800 (6557-1733) /uL [place] # (Auto) 600 (0-900) /uL Eos # (Auto) 0 (0-450) /uL Baso # (Auto) 0 (0-100) /uL ABG pH (7.35-7.45) ABG pCO2 (35-45) mmHg ABG pO2 (80-100) mmHg ABG HCO3 (22-26) mmol/L ABG Total CO2 (21-31) mmol/L ABG O2 Saturation (95-100) % ABG Base Excess (-2-2) mmol/L FiO2 Sodium 126 L (137-145) mmol/L Potassium 2.2 L* (3.4-5.1) mmol/L Chloride 80 L (98-107) mmol/L Carbon Dioxide 38 H (22-32) mmol/L BUN 8 L (9-20) mg/dL Creatinine 0.74 (0.66-1.25) mg/dL Estimated GFR > 60.0 (>60) mL/min BUN/Creatinine Ratio 10.8 (6-22) Glucose 106 H (70-100) mg/dL Calcium 9.5 (8.4-10.2) mg/dL Phosphorus (2.5-4.5) mg/dL Magnesium (1.6-2.3) mg/dL Total Bilirubin 1.0 (0.2-1.3) mg/dL AST 50 (17-59) IU/L ALT 19 (<50) IU/L Alkaline Phosphatase 88 (38-126) U/L Total Creatine Kinase (55-170) U/L C-Reactive Protein 0.8 (<1.0) mg/dL Total Protein 7.8 (6.3-8.2) g/dL Albumin 4.9 (3.5-5.0) g/dL Globulin 2.9 (1.7-4.1) g/dL Albumin/Globulin Ratio 1.7 (1.0-2.8) Lipase 266 (23-300) U/L TSH 0.439 L (0.47-4.68) uIU/mL Thyroxine (T4) (5.5-11.0) ug/dL U Opiates 300ng/mL cut (Negative) Ur Oxycodone Screen (Negative) Urine Methadone Screen (Negative) Ur Barbiturates Screen (Negative) U Tricyclic Antidepress (Negative) Ur Phencyclidine Scrn (Negative) Ur Amphetamines Screen (Negative) U Methamphetamines Scrn (Negative) Ur MDMA Scrn (Ecstasy) (Negative) U Benzodiazepines Scrn (Negative) Urine Cocaine Screen (Negative) U Marijuana (THC) Screen (Negative) 11/24/20 11/24/20 11/24/20 Range/Units 19:22 20:52 22:20 WBC (4.5-11.0) X10^3/uL RBC (4.5-5.9) X10^6/uL Hgb (13.5-17.5) g/dL Hct (41-53) % MCV (80-100) fL MCH (26-34) PG MCHC (30-36) % RDW (11.6-14.8) % Plt Count (150-400) X10^3/uL Neut % (Auto) (50-75) % Lymph % (Auto) (25-40) % [place] % (Auto) (3-14) % Eos % (Auto) (2-4) % Baso % (Auto) (0-2) % Neut # (Auto) (8138-8726) /uL Lymph # (Auto) (7347-6543) /uL [place] # (Auto) (0-900) /uL Eos # (Auto) (0-450) /uL Baso # (Auto) (0-100) /uL ABG pH (7.35-7.45) ABG pCO2 (35-45) mmHg ABG pO2 (80-100) mmHg ABG HCO3 (22-26) mmol/L ABG Total CO2 (21-31) mmol/L ABG O2 Saturation (95-100) % ABG Base Excess (-2-2) mmol/L FiO2 Sodium 132 L (137-145) mmol/L Potassium 3.9 D (3.4-5.1) mmol/L Chloride 86 L (98-107) mmol/L Carbon Dioxide 41 H* (22-32) mmol/L BUN 7 L (9-20) mg/dL Creatinine 0.66 (0.66-1.25) mg/dL Estimated GFR > 60.0 (>60) mL/min BUN/Creatinine Ratio 10.6 (6-22) Glucose 104 H (70-100) mg/dL Calcium 9.2 (8.4-10.2) mg/dL Phosphorus (2.5-4.5) mg/dL Magnesium (1.6-2.3) mg/dL Total Bilirubin (0.2-1.3) mg/dL AST (17-59) IU/L ALT (<50) IU/L Alkaline Phosphatase (38-126) U/L Total Creatine Kinase (55-170) U/L C-Reactive Protein (<1.0) mg/dL Total Protein (6.3-8.2) g/dL Albumin (3.5-5.0) g/dL Globulin (1.7-4.1) g/dL Albumin/Globulin Ratio (1.0-2.8) Lipase (23-300) U/L TSH (0.47-4.68) uIU/mL Thyroxine (T4) 12.90 H (5.5-11.0) ug/dL U Opiates 300ng/mL cut Negative (Negative) Ur Oxycodone Screen Negative (Negative) Urine Methadone Screen Negative (Negative) Ur Barbiturates Screen Negative (Negative) U Tricyclic Antidepress Negative (Negative) Ur Phencyclidine Scrn Negative (Negative) Ur Amphetamines Screen Negative (Negative) U Methamphetamines Scrn Negative (Negative) Ur MDMA Scrn (Ecstasy) Negative (Negative) U Benzodiazepines Scrn Negative (Negative) Urine Cocaine Screen Negative (Negative) U Marijuana (THC) Screen Positive H (Negative) 11/24/20 11/24/20 11/24/20 Range/Units 22:20 22:20 23:01 WBC (4.5-11.0) X10^3/uL RBC (4.5-5.9) X10^6/uL Hgb (13.5-17.5) g/dL Hct (41-53) % MCV (80-100) fL MCH (26-34) PG MCHC (30-36) % RDW (11.6-14.8) % Plt Count (150-400) X10^3/uL Neut % (Auto) (50-75) % Lymph % (Auto) (25-40) % [place] % (Auto) (3-14) % Eos % (Auto) (2-4) % Baso % (Auto) (0-2) % Neut # (Auto) (2177-5947) /uL Lymph # (Auto) (1571-9505) /uL [place] # (Auto) (0-900) /uL Eos # (Auto) (0-450) /uL Baso # (Auto) (0-100) /uL ABG pH 7.34 L (7.35-7.45) ABG pCO2 28.0 L (35-45) mmHg ABG pO2 127 H (80-100) mmHg ABG HCO3 30 H (22-26) mmol/L ABG Total CO2 31 (21-31) mmol/L ABG O2 Saturation 99 (95-100) % ABG Base Excess 9.0 H (-2-2) mmol/L FiO2 21 Sodium (137-145) mmol/L Potassium (3.4-5.1) mmol/L Chloride (98-107) mmol/L Carbon Dioxide (22-32) mmol/L BUN (9-20) mg/dL Creatinine (0.66-1.25) mg/dL Estimated GFR (>60) mL/min BUN/Creatinine Ratio (6-22) Glucose (70-100) mg/dL Calcium (8.4-10.2) mg/dL Phosphorus 2.9 (2.5-4.5) mg/dL Magnesium 2.4 H (1.6-2.3) mg/dL Total Bilirubin (0.2-1.3) mg/dL AST (17-59) IU/L ALT (<50) IU/L Alkaline Phosphatase (38-126) U/L Total Creatine Kinase 43 L (55-170) U/L C-Reactive Protein (<1.0) mg/dL Total Protein (6.3-8.2) g/dL Albumin (3.5-5.0) g/dL Globulin (1.7-4.1) g/dL Albumin/Globulin Ratio (1.0-2.8) Lipase (23-300) U/L TSH (0.47-4.68) uIU/mL Thyroxine (T4) (5.5-11.0) ug/dL U Opiates 300ng/mL cut (Negative) Ur Oxycodone Screen (Negative) Urine Methadone Screen (Negative) Ur Barbiturates Screen (Negative) U Tricyclic Antidepress (Negative) Ur Phencyclidine Scrn (Negative) Ur Amphetamines Screen (Negative) U Methamphetamines Scrn (Negative) Ur MDMA Scrn (Ecstasy) (Negative) U Benzodiazepines Scrn (Negative) Urine Cocaine Screen (Negative) U Marijuana (THC) Screen (Negative) Urine Dip Bedside Urine Glucose Negative Bedside Urine Ketone +/- 5 Urine Specific [place] 1.010 Bedside Urine Occult Blood - Negative Bedside Urine pH 9.0 Bedside Urine Protein - Negative Bedside Urine Urobilinogen - Negative Bedside Urine Nitrite - Negative Discharge Plan Departure Patient Disposition: Home Clinical Impression: Elevated blood pressure reading, Acute hypokalemia, Acute hyponatremia, Hyperthyroidism Nausea & vomiting Qualifiers: Vomiting type: unspecified Vomiting Intractability: intractable Qualified Code(s): R11.2 - Nausea with vomiting, unspecified Instructions: DI for Hyperthyroidism, Nausea and Vomiting-Adult Activity Restrictions/Additional Instructions: Reglan every 8 hours as needed for nausea vomiting. Be sure you are drinking plenty of fluids. Advance your diet as tolerated. He should follow-up at a local medical facility, you should recheck your potassium and sodium levels within the next 2-3 days. Your blood pressure was persistently elevated. I will discharge you on lisinopril 1 tab daily. You should also be recording daily blood pressure readings. Follow-up with your doctor to re-evaluate your blood pressure in the next 2-3 weeks. Additionally, your thyroid tests are slightly abnormal, you may have hyperthyroidism. You need further evaluation with your PCM. Return to the ER as needed. Prescriptions: New metoclopramide HCl [Reglan] 10 mg tablet 10 mg PO Q8HR PRN (Reason: nausea and vomiting) Qty: 60 RF: 0 lisinopril 5 mg tablet 5 mg PO DAILY Qty: 60 RF: 0 No Action sucralfate [Carafate] 100 mg/mL suspension 10 ml PO QACHS Qty: 200 RF: 0 promethazine 25 mg suppository 25 mg DE Q4-6H PRN (Reason: nausea and vomiting) Qty: 12 RF: 0 metoclopramide HCl [Reglan] 5 mg tablet 5 mg PO QACHS PRN (Reason: nausea and vomiting) Qty: 14 RF: 0 trazodone 100 mg tablet 100 mg PO BEDTIME PRN (Reason: sleep) Qty: 90 RF: 1 lamotrigine 150 mg tablet 300 mg PO DAILY 30 Days Qty: 60 RF: 1 propranolol 10 mg tablet 10 mg PO TID RF: 0 guanfacine 1 mg tablet 1 mg PO BEDTIME Qty: 30 RF: 0 guanfacine 3 mg tablet extended release 24 hr 3 mg PO QPM Qty: 30 RF: 0 escitalopram oxalate 10 mg tablet 20 mg PO DAILY 30 Days Qty: 60 RF: 1 gabapentin 400 mg capsule 400 mg PO TID PRN (Reason: anxiety sleep) Qty: 180 RF: 0 Referrals: Marty Doyle ARNP [Primary Care Provider] -
[2020-11-24] MEDS: SODIUM CHLORIDE 0.9% 1,000 ML 1000 ML IV ×2 (19:33→23:17)
[2020-11-24] MEDS: ONDANSETRON 4 MG/2 ML INJ IV (19:34)
[2020-11-24] MEDS: POTASSIUM CHLORIDE 20 MEQ/15 ML UDC PO (19:36)
[2020-11-24 19:39] LABS: Add Manual Diff / Slide Review NO; Basophils Absolute Auto 0 /uL (0-100); Basophils Percent Auto 0.4 % (0-2); Eosinophils Absolute Auto 0 /uL (0-450); Eosinophils Percent Auto 0.1 % (2-4); Hematocrit 44.8 % (41-53); Lymphocytes Absolute Auto 2800 /uL (1100-4500); Lymphocytes Percent Auto 25.8 % (25-40); Mean Corpuscular HGB Conc 35.7 % (30-36); Mean Corpuscular Hemoglobin 29.7 PG (26-34); Mean Corpuscular Volume 83.2 fL (80-100); Monocytes Absolute Auto 600 /uL (0-900); Monocytes Percent Auto 5.9 % (3-14); Neutrophils Absolute Auto 7200 /uL (1500-7000); Neutrophils Percent Auto 67.8 % (50-75); Platelet Count 346 X10^3/uL (150-400); Red Blood Cell Count 5.38 X10^6/uL (4.5-5.9); Red Cell Distribution Width 12.2 % (11.6-14.8); White Blood Cell Count 10.7 X10^3/uL (4.5-11.0)
[2020-11-24] MEDS: POTASSIUM CHLORIDE 20 MEQ in SODIUM CHLORIDE 0.9% 250 ML 130 ML IV (19:43)
[2020-11-24 19:45] LABS: Alanine Aminotransferase 19 IU/L (<50); Albumin 4.9 g/dL (3.5-5.0); Albumin Globulin Ratio 1.7 (1.0-2.8); Alkaline Phosphatase 88 U/L (38-126); Aspartate Aminotransferase 50 IU/L (17-59); BUN Creatinine Ratio 10.8 (6-22); Blood Urea Nitrogen 8 mg/dL (9-20); Calcium 9.5 mg/dL (8.4-10.2); Chloride 80 mmol/L (98-107); Estimated Glomerular Filt Rate > 60.0 mL/min (>60); Globulin 2.9 g/dL (1.7-4.1); Glucose 106 mg/dL (70-100); HEMOLYSIS < 15 (0-50); Lipase 266 U/L (23-300); Sodium 126 mmol/L (137-145); Total Protein 7.8 g/dL (6.3-8.2)
[2020-11-24 19:50] LABS: C-Reactive Protein Quant 0.8 mg/dL (<1.0)
[2020-11-24 19:59] LABS: Carbon Dioxide 38 mmol/L (22-32)
[2020-11-24 20:03] LABS: Potassium 2.2 mmol/L (3.4-5.1)
[2020-11-24] MEDS: METOCLOPRAMIDE 10 MG/2 ML INJ IV (22:19)
--- NOTE | 2020-11-24 22:31 | PC.NURSE ---
Pt attempted to take in PO water per doctor instructions, became nauseated then vomited all of the water. Pt was given Reglan when he reported the nausea approx 5 min before vomiting.
[2020-11-24 22:39] LABS: BUN Creatinine Ratio 10.6 (6-22); Blood Urea Nitrogen 7 mg/dL (9-20); Calcium 9.2 mg/dL (8.4-10.2); Chloride 86 mmol/L (98-107); Estimated Glomerular Filt Rate > 60.0 mL/min (>60); Glucose 104 mg/dL (70-100); HEMOLYSIS < 15 (0-50); Potassium 3.9 mmol/L (3.4-5.1); Sodium 132 mmol/L (137-145)
[2020-11-24 22:49] LABS: Carbon Dioxide 41 mmol/L (22-32)
[2020-11-24 23:16] LABS: Magnesium 2.4 mg/dL (1.6-2.3); Phosphorous 2.9 mg/dL (2.5-4.5)
[2020-11-24 23:20] LABS: Creatine Kinase 43 U/L (55-170)
[2020-11-24 23:52] LABS: Thyroid Stimulating Hormone 0.439 uIU/mL (0.47-4.68)
[2020-11-25] VITALS (8 sets, daily range): BP systolic 138–162; BP diastolic 83–108; PULSE 75–89; RESP 7–34; O2SAT 95–100
[2020-11-25 00:21] LABS: Ur Creatinine 20 (Normal)
[2020-11-25 00:22] LABS: UR Morphine/Opiate cutoff 300 Negative (Negative); Ur Specific Gravity 1.015 (Normal); Urine Amphetamines Negative (Negative); Urine Barbiturates Negative (Negative); Urine Benzodiazepines Negative (Negative); Urine Cocaine Negative (Negative); Urine MDMA Negative (Negative); Urine Methadone Negative (Negative); Urine Methamphetamines Negative (Negative); Urine Oxycodone Negative (Negative); Urine Phencyclidine Negative (Negative); Urine Tetrahydrocannabinol Positive (Negative); Urine Tricyclic Antidepressant Negative (Negative); Urine pH 9 (Normal)
[2020-11-25] MEDS: lisinopriL 5 MG TABLET PO (02:11)
[2020-11-28 09:44] LABS: PO2 ABG 127 mmHg (80-100); pH ABG 7.64 (7.35-7.45)
[2020-11-28 09:45] LABS: HCO3 ABG 30 mmol/L (22-26); Oxygen Saturation ABG 99 % (95-100); TCO2 ABG 31 mmol/L (21-31)
[2020-11-28 09:46] LABS: Fractionated Inspired Oxygen 21
== END 2020-11-25 03:50 | disposition home or self-care (01) ==
PROVIDERS: Emergency Provider Emergency Medicine; PCP Registered Nurse Diabetes Educator
DX: E87.6 Hypokalemia (principal); E87.1 Hypo-osmolality and hyponatremia; R11.2 Nausea with vomiting, unspecified; F41.9 Anxiety disorder, unspecified; Z86.16 Personal history of COVID-19; E05.90 Thyrotoxicosis, unspecified without thyrotoxic crisis or storm; R03.0 Elevated blood-pressure reading, without diagnosis of hypertension
CPT/HCPCS: 36415; 36600; 80048; 80053; 80305; 81003; 82150; 82550; 82805; 83690; 83735; 84100; 84436; 84443; 85025; 86140; 93005; 93010; 96365; 96366; 96368; 96375; 99281; 99284; J2405; J2765; J3480

== ENCOUNTER 2020-11-26 11:44 | Inpatient (IN) | payer OTHER, SELFPAY ==
[2020-09-18 08:58] VITALS: BMI 23.7
[2020-11-26] VITALS (15 sets, daily range): BP systolic 124–166; BP diastolic 83–127; PULSE 59–101; RESP 7–18; TEMP 36.6–37.1; O2SAT 90–100; BMI 25.7
[2020-11-26 12:09] LABS: Add Manual Diff / Slide Review NO; Basophils Absolute Auto 100 /uL (0-100); Basophils Percent Auto 0.7 % (0-2); Eosinophils Absolute Auto 0 /uL (0-450); Eosinophils Percent Auto 0.1 % (2-4); Hematocrit 43.5 % (41-53); Hemoglobin 15.4 g/dL (13.5-17.5); Lymphocytes Absolute Auto 2100 /uL (1100-4500); Lymphocytes Percent Auto 12.8 % (25-40); Mean Corpuscular HGB Conc 35.3 % (30-36); Mean Corpuscular Hemoglobin 29.2 PG (26-34); Mean Corpuscular Volume 82.7 fL (80-100); Monocytes Absolute Auto 700 /uL (0-900); Monocytes Percent Auto 4.5 % (3-14); Neutrophils Absolute Auto 13200 /uL (1500-7000); Neutrophils Percent Auto 81.9 % (50-75); Platelet Count 358 X10^3/uL (150-400); Red Blood Cell Count 5.27 X10^6/uL (4.5-5.9); Red Cell Distribution Width 12.4 % (11.6-14.8); White Blood Cell Count 16.1 X10^3/uL (4.5-11.0)
[2020-11-26 12:16] LABS: Alanine Aminotransferase 25 IU/L (<50); Albumin 4.9 g/dL (3.5-5.0); Albumin Globulin Ratio 1.9 (1.0-2.8); Aspartate Aminotransferase 53 IU/L (17-59); BUN Creatinine Ratio 7.2 (6-22); Bilirubin Total 0.8 mg/dL (0.2-1.3); Blood Urea Nitrogen 5 mg/dL (9-20); Calcium 9.6 mg/dL (8.4-10.2); Carbon Dioxide 30 mmol/L (22-32); Chloride 92 mmol/L (98-107); Estimated Glomerular Filt Rate > 60.0 mL/min (>60); Globulin 2.6 g/dL (1.7-4.1); Glucose 126 mg/dL (70-100); HEMOLYSIS 20 (0-50); Magnesium 1.8 mg/dL (1.6-2.3); Sodium 131 mmol/L (137-145); Total Protein 7.5 g/dL (6.3-8.2)
[2020-11-26 12:17] LABS: Potassium 2.6 mmol/L (3.4-5.1)
[2020-11-26] MEDS: SODIUM CHLORIDE 0.9% 1,000 ML 1000 ML IV (12:18)
[2020-11-26] MEDS: diphenhydrAMINE 50 MG/ML VIAL 25 MG IV (12:19)
[2020-11-26] MEDS: METOCLOPRAMIDE 10 MG/2 ML INJ IV (12:19)
[2020-11-26 12:21] LABS: Alkaline Phosphatase 79 U/L (38-126)
--- NOTE | 2020-11-26 12:23 | DI.CT.S_ITS ---
PROCEDURE: CT ABDOMEN PELVIS W CON INDICATIONS: epigastric pain, vomiting/diarrhea, WBC TECHNIQUE: After the administration of intravenous contrast, 5 mm thick sections acquired from the diaphragm to the symphysis. 5 mm coronal and sagittal reformats were acquired. For radiation dose reduction, the following was used: automated exposure control, adjustment of mA and/or kV according to patient size. COMPARISON: [facility], CT, CT CHEST ABD PEL W CON, 09/25/2020, 7:28. [place], ABDOMEN COMPLETE, 04/18/2014, 9:22. [facility], CT, CT ANGIO CHEST PE PROTOCOL, 09/15/2020, 7:38. [facility], CT, CT ABDOMEN PELVIS W CON, 09/18/2020, 10:44. FINDINGS: Image quality: Excellent. ABDOMEN: Lung bases: Lung bases are clear. Heart size is normal. Small hiatal hernia. Solid organs: Liver is normal in size and enhancement. Gallbladder is normal. Biliary system is non dilated. Pancreas enhances normally. Spleen is normal in size and enhancement. No adrenal nodules. Kidneys demonstrate normal size and enhancement, without hydronephrosis. Peritoneum and bowel: Stomach is distended with an air-fluid level. There may be mild gastric antral thickening. Small bowel loops are normal in caliber. There is mild colonic wall thickening involving the hepatic flexure, transverse colon, splenic flexure, descending and sigmoid colon, consistent with mild colitis. Normal appendix. No free fluid or air. Nodes and vessels: No retroperitoneal or mesenteric adenopathy by size criteria. Aorta and inferior vena cava are normal in size. Miscellaneous: No ventral hernias. PELVIS: Genitourinary: Bladder wall thickness is normal. Miscellaneous: No inguinal hernias or adenopathy. Bones: No suspicious bony lesions. No vertebral body compression fractures. IMPRESSION: 1. Diffuse colonic wall thickening from hepatic fractures through sigmoid colon consistent with colitis. Differential diagnosis include infectious etiology versus inflammatory bowel disease. 2. Distended stomach with an air-fluid level in the gastric lumen. Mild gastric antral thickening may be present. Differential diagnosis include gastritis versus mild gastric outlet obstruction. Dictated by: Renzo Yen M.D. on 11/26/2020 at 13:12 Approved by: Renzo Yen M.D. on 11/26/2020 at 13:23
[2020-11-26] MEDS: PANTOPRAZOLE 40 MG VIAL IV ×2 (12:33→21:44)
[2020-11-26 12:41] LABS: Lactate (Lactic Acid) 1.3 mmol/L (0.7-2.1)
--- NOTE | 2020-11-26 12:47 | ED_ITS ---
HPI - Nausea/Vomiting/Diarrhea <Tray DEMAR Gleason - Last Filed: 11/26/20 14:27> General Chief complaint: Nausea/Vomiting/Diarrhea Stated complaint: Needs Fluids Time Seen by Provider: 11/26/20 11:50 Source: patient Mode of arrival: Ambulatory Limitations: no limitations History of Present Illness HPI Narrative: This is a 30 year male, former smoker, who has past medical history significant for anxiety, depression, panic attacks who had COVID-19 in September presents to ED with generalized weakness, epigastric pain, recurring nausea, vomiting, diarrhea which is not managed with home medications Zofran. Patient has been in ED several times since the COVID with GI symptoms with luis antonio sea, vomiting, dehydration, and electrolyte imbalance and was evaluated 2 days ago with similar symptoms and hypokalemia and when his symptoms are managed was discharged to home. Patient reports with recurring nausea, vomiting, diarrhea for last 12 hours. He states PCP Vivek is considering endoscopy for next step. Patient reports discomfort as 8/10 and describes as burning, dull aching discomfort in epigastric region. Patient denies blood in vomit or stools. He states bile looking emesis and yellow and greenish diarrhea. Patient denies chest pain, dyspnea, fever, cough. Patient denies any recent medication changes, patient reports try to take his morning medication including hypertens ion but thinks was not able to keep it down. Last meal 1/2 cup of chicken noodle soup at 0800 and had not been eating for a while prior to this. Related Data Home Medications Medication Instructions Recorded Confirmed propranolol 10 mg tablet 10 mg PO TID 10/15/20 10/15/20 Previous Rx's Medication Instructions Recorded trazodone 100 mg tablet 100 mg PO BEDTIME PRN #90 tab 08/05/20 lamotrigine 150 mg tablet 300 mg PO DAILY 30 Days #60 tab 09/10/20 guanfacine 1 mg tablet 1 mg PO BEDTIME #30 tab 10/15/20 guanfacine 3 mg tablet,extended 3 mg PO QPM #30 tab 10/15/20 release 24 hr escitalopram oxalate 10 mg tablet 20 mg PO DAILY 30 Days #60 tab 11/10/20 gabapentin 400 mg capsule 400 mg PO TID PRN #180 cap 11/17/20 metoclopramide HCl 5 mg tablet 5 mg PO QACHS PRN #14 tab 11/24/20 promethazine 25 mg rectal 25 mg [place] Q4-6H PRN #12 ea 11/24/20 suppository sucralfate 100 mg/mL oral 10 ml PO QACHS #200 ml 11/24/20 suspension lisinopril 5 mg PO DAILY #60 tab 11/25/20 metoclopramide HCl [Reglan] 10 mg PO Q8HR PRN #60 tab 11/25/20 Allergies Allergy/AdvReac Type Severity Reaction Status Date / Time No Known Drug Allergies Allergy Verified 10/15/20 16:09 Review of Systems <DEMAR Baker - Last Filed: 11/26/20 14:27> Review of Systems Narrative: General: Denies fever, chills, (+) fatigue, malaise, sweats. HEENT: Denies sinus pain, ear pain, sore throat, difficulty swallowing, dizziness. Respiratory: Denies dyspnea, cough, wheezing, hemoptysis, sputum. Cardiovascular: Denies chest pain, palpitations, orthopnea, edema. Gastrointestinal: See HPI : Denies dysuria, frequency, incontinence, hematuria, urinary retention. Musculoskeletal: Denies (+) generalized weakness, joint pain or bony pain. Skin: Denies rash, skin lesions, or other. Neurologic: Denies headache, numbness, change in speech, confusion, seizures, incoordination. Psychiatric: No concerning psychosocial issues. 12-point review of systems is negative except for those stated above. Patient History <DEMAR Baker - Last Filed: 11/26/20 14:27> Medical History (Updated 11/26/20 @ 13:37 by DEMAR Baker) Alcohol use disorder Generalized anxiety disorder (~2006) Hip pain History of panic attacks Low back pain Major depressive disorder, recurrent episode, severe Pneumonia due to 2019 novel coronavirus Family History Father Alcoholism Mother Diabetes mellitus Social History household members: friend(s) Smoking Status: Former smoker second hand exposure: Yes alcohol intake: former substance use type: marijuana (occassionally to help sleep/ingestible) Smoking Status: Former smoker alcohol intake frequency: 0-2 drinks per day Substance Use Type: marijuana Exam <DEMAR Baker - Last Filed: 11/26/20 14:27> Narrative Exam Narrative: GEN: Alert, oriented x 3, appears to be extremely fatigued but in no acute distress. Head: Normal cephalic, atraumatic. No scalp or temporal tenderness, palpable mass or rash. ENT: Hearing grossly intact. Nose without bleeding, purulent discharge or deviation. Facial sinuses nontender to palpate. Mucous membrane sticky, no mucosal lesion. Throat without erythema, tonsillar hypertrophy or exudate. Uvula in midline, airway patent. Neck: Trachea in midline. No JVD, non-tender without lymphadenopathy. No masses or thyroid megaly. Supple, non-tender and no meningeal signs. CARDIAC: Normal regular rate and rhythm without murmurs, gallops, or rubs. No chest wall tenderness. No peripheral edema, cyanosis or pallor. Capillary refill is less than 2 seconds and faint radial pulse. RESPIRATORY: Lungs are clear to auscultate bilaterally. No cough, wheezes, rales, or rhonchi. No stridor, respiratory distress, increase work of breathing, or accessary muscle used. ABD: Abdomen soft, nontender and non-distended. No guarding or rebound tender ness to palpate. Bowel sounds are hypoactive in all quadrants. There is no palpable masses or organomegaly. EXT: Painless ROM of all extremities with no loss of sensation, strength, effusion or edema. SKIN: Warm, cool, normal color for patient. No erythema, lesions or rash over visible areas. BACK: Nontender without deformity or crepitance. No flank tenderness. NEUROLOGICAL: Alert and oriented to place, time and person. Sensation and motor function intact bilaterally. No facial droops, dysphasia. Initial Vital Signs Initial Vital Signs: Vital Signs Temperature 97.9 F 11/26/20 11:45 Pulse Rate 79 11/26/20 11:45 Respiratory Rate 16 11/26/20 11:45 Blood Pressure 159/110 H 11/26/20 11:45 Pulse Oximetry 98 11/26/20 11:45 Psych Appearance: grossly normal Speech and Movement: slowed movement Attitude: cooperative (calm, quiet) Thought Process: normal Thought Content: no homicidality and suicidality <Miguelito Moreland DO - Last Filed: 11/26/20 15:06> Initial Vital Signs Initial Vital Signs: Vital Signs Temperature 97.9 F 11/26/20 11:45 Pulse Rate 79 11/26/20 11:45 Respiratory Rate 16 11/26/20 11:45 Blood Pressure 159/110 H 11/26/20 11:45 Pulse Oximetry 98 11/26/20 11:45 Scores <Tray JainAnastaciokelsey [facility] - Last Filed: 11/26/20 14:27> GCS Heena coma scale eye opening: Spontaneous [place] coma scale verbal response: Orientated [place] coma scale motor response: Obey commands [place] coma scale total score: 15 qSOFA Altered Mental Status (GCS <15): No Respiratory rate greater than/equal to 22: No Systolic blood pressure less than or equal to 100: No qSOFA Total: 0 0-1 Not High Risk 1-3 High risk Course <[facility] - Last Filed: 11/26/20 14:27> Orders Ordered: ED Orders 11/26/20 11:54 Complete Blood Count AUTO DIFF Stat Comprehensive Metabolic Panel Stat Lactate (Lactic Acid) Stat Magnesium Stat Phosphorous Stat Procalcitonin Stat 11/26/20 12:23 CT abdomen pelvis w con Stat 11/26/20 13:23 COVID19 Stat Escitalopram Oxalate (Escitalopram 10 Mg Tablet) 20 mg PO DAILY NOBLE Gabapentin (Gabapentin 400 Mg Capsule) 400 mg PO TID PRN PRN Reason: anxiety sleep Guanfacine HCl (Guanfacine 1 Mg Tablet) 1 mg PO BEDTIME NOBLE Potassium Chloride 40 meq/ (Sodium Chloride) 520 mls @ 130 mls/hr IV NOW ONE Stop: 11/26/20 16:17 Last Infusion: 11/26/20 14:15 Dose: 130 mls/hr Documented by: PEGGY Cosigned by: MARIELENA Admin: 11/26/20 13:15 Dose: 130 mls/hr Documented by: PEGGY Cosigned by: MARIELENA Sodium Chloride (Normal Saline 0.9%) 1,000 mls @ 150 mls/hr IV CONT NOBLE Lamotrigine (Lamotrigine 100 Mg Tablet) 300 mg PO DAILY NOBLE Lisinopril (Lisinopril 5 Mg Tablet) 5 mg PO DAILY NOBLE Morphine Sulfate (Morphine 2 Mg/Ml Inj) 2 mg IV Q4HR PRN PRN Reason: Pain, Moderate (4-6) Morphine Sulfate (Morphine 2 Mg/Ml Inj) 1 mg IV Q4HR PRN PRN Reason: Pain, Moderate (4-6) Naloxone HCl (Naloxone 0.4 Mg/Ml Vial) 0.2 mg IV Q2MIN PRN PRN Reason: Opiate Reversal Non-Formulary Medication (Guanfacine) 3 mg PO QPM ON LICENSE OF [facility] Ondansetron HCl (Ondansetron 4 Mg/2 Ml Inj) 4 mg IV Q4HR PRN PRN Reason: Nausea And Vomiting Pantoprazole Sodium (Pantoprazole 40 Mg Vial) 40 mg IV BID ON LICENSE OF [facility] Propranolol HCl (Propranolol 10 Mg Tablet) 10 mg PO TID ON LICENSE OF [facility] Trazodone HCl (Trazodone 100 Mg Tablet) 100 mg PO BEDTIME PRN PRN Reason: sleep Discontinued Medications Diphenhydramine HCl (Diphenhydramine 50 Mg/Ml Vial) 25 mg IV NOW ONE Stop: 11/26/20 12:01 Last Admin: 11/26/20 12:19 Dose: 25 mg Documented by: PEGGY Sodium Chloride (Normal Saline 0.9%) 1,000 mls @ 1,000 mls/hr IV BOLUS ONE Stop: 11/26/20 12:59 Last Infusion: 11/26/20 13:17 Dose: 0 mls/hr Documented by: Admin: 11/26/20 12:18 Dose: 1,000 mls/hr Documented by: PEGGY Metoclopramide HCl (Metoclopramide 10 Mg/2 Ml Inj) 10 mg IV NOW ONE Stop: 11/26/20 12:01 Last Admin: 11/26/20 12:19 Dose: 10 mg Documented by: PEGGY Pantoprazole Sodium (Pantoprazole 40 Mg Vial) 40 mg IV NOW ONE Stop: 11/26/20 12:19 Last Admin: 11/26/20 12:33 Dose: 40 mg Documented by: PEGGY Potassium Chloride (Potassium Chloride 20 Meq Tab) 40 meq PO NOW ONE Stop: 11/26/20 13:12 Last Admin: 11/26/20 13:54 Dose: 40 meq Documented by: PEGGY Potassium Phos/Sodium Phos (Sodium,Potassium Phosphates Packet) 2 each PO DAILY ON LICENSE OF [facility] Last Admin: 11/26/20 13:53 Dose: 2 each Documented by: PEGGY Sucralfate (Sucralfate 1 Gm/10 Ml Oral Susp) 1 gm PO ACHS NOBLE Last Admin: 11/26/20 13:57 Dose: Not Given Documented by: PEGGY Reevaluation(s) Reevaluation #1: Reports nausea improved. Time: 12:45 Consultations Consultation #1: Consulted Dr. Bhagat for admission and he kindly accepted the care. Time: 13:45 Vital Signs Vital signs: Vital Signs - 8 hr 11/26/20 11:45 11/26/20 12:30 11/26/20 13:01 Temperature 97.9 F Pulse Rate 79 77 101 H Respiratory Rate 16 Blood Pressure 159/110 H Pulse Oximetry 98 100 90 L 11/26/20 13:02 11/26/20 13:30 Temperature Pulse Rate 88 80 Respiratory Rate 11 L Blood Pressure 164/109 H Pulse Oximetry 100 100 <Miguelito Moreland DO - Last Filed: 11/26/20 15:06> Orders Ordered: ED Orders 11/26/20 11:54 Complete Blood Count AUTO DIFF Stat Comprehensive Metabolic Panel Stat Lactate (Lactic Acid) Stat Magnesium Stat Phosphorous Stat Procalcitonin Stat 11/26/20 12:23 CT abdomen pelvis w con Stat 11/26/20 13:23 COVID19 Stat Escitalopram Oxalate (Escitalopram 10 Mg Tablet) 20 mg PO DAILY NOBLE Gabapentin (Gabapentin 400 Mg Capsule) 400 mg PO TID PRN PRN Reason: anxiety sleep Guanfacine HCl (Guanfacine 1 Mg Tablet) 1 mg PO BEDTIME NOBLE Potassium Chloride 40 meq/ (Sodium Chloride) 520 mls @ 130 mls/hr IV NOW ONE Stop: 11/26/20 16:17 Last Infusion: 11/26/20 14:15 Dose: 130 mls/hr Documented by: PEGGY Cosigned by: MARIELENA Admin: 11/26/20 13:15 Dose: 130 mls/hr Documented by: PEGGY Cosigned by: MARIELENA Sodium Chloride (Normal Saline 0.9%) 1,000 mls @ 150 mls/hr IV CONT NOBLE Lamotrigine (Lamotrigine 100 Mg Tablet) 300 mg PO DAILY NOBLE Lisinopril (Lisinopril 5 Mg Tablet) 5 mg PO DAILY NOBLE Morphine Sulfate (Morphine 2 Mg/Ml Inj) 2 mg IV Q4HR PRN PRN Reason: Pain, Moderate (4-6) Morphine Sulfate (Morphine 2 Mg/Ml Inj) 1 mg IV Q4HR PRN PRN Reason: Pain, Moderate (4-6) Naloxone HCl (Naloxone 0.4 Mg/Ml Vial) 0.2 mg IV Q2MIN PRN PRN Reason: Opiate Reversal Non-Formulary Medication (Guanfacine) 3 mg PO QPM ON LICENSE OF [facility] Ondansetron HCl (Ondansetron 4 Mg/2 Ml Inj) 4 mg IV Q4HR PRN PRN Reason: Nausea And Vomiting Pantoprazole Sodium (Pantoprazole 40 Mg Vial) 40 mg IV BID ON LICENSE OF [facility] Propranolol HCl (Propranolol 10 Mg Tablet) 10 mg PO TID ON LICENSE OF [facility] Trazodone HCl (Trazodone 100 Mg Tablet) 100 mg PO BEDTIME PRN PRN Reason: sleep Discontinued Medications Diphenhydramine HCl (Diphenhydramine 50 Mg/Ml Vial) 25 mg IV NOW ONE Stop: 11/26/20 12:01 Last Admin: 11/26/20 12:19 Dose: 25 mg Documented by: PEGGY Sodium Chloride (Normal Saline 0.9%) 1,000 mls @ 1,000 mls/hr IV BOLUS ONE Stop: 11/26/20 12:59 Last Infusion: 11/26/20 13:17 Dose: 0 mls/hr Documented by: Admin: 11/26/20 12:18 Dose: 1,000 mls/hr Documented by: PEGGY Metoclopramide HCl (Metoclopramide 10 Mg/2 Ml Inj) 10 mg IV NOW ONE Stop: 11/26/20 12:01 Last Admin: 11/26/20 12:19 Dose: 10 mg Documented by: PEGGY Pantoprazole Sodium (Pantoprazole 40 Mg Vial) 40 mg IV NOW ONE Stop: 11/26/20 12:19 Last Admin: 11/26/20 12:33 Dose: 40 mg Documented by: PEGGY Potassium Chloride (Potassium Chloride 20 Meq Tab) 40 meq PO NOW ONE Stop: 11/26/20 13:12 Last Admin: 11/26/20 13:54 Dose: 40 meq Documented by: PEGGY Potassium Phos/Sodium Phos (Sodium,Potassium Phosphates Packet) 2 each PO DAILY ON LICENSE OF [facility] Last Admin: 11/26/20 13:53 Dose: 2 each Documented by: CSIEDLE Sucralfate (Sucralfate 1 Gm/10 Ml Oral Susp) 1 gm PO ACHS ON LICENSE OF [facility] Last Admin: 11/26/20 13:57 Dose: Not Given Documented by: PEGGY Vital Signs Vital signs: Vital Signs - 8 hr 11/26/20 11:45 11/26/20 12:30 11/26/20 13:01 Temperature 97.9 F Pulse Rate 79 77 101 H Respiratory Rate 16 Blood Pressure 159/110 H Pulse Oximetry 98 100 90 L 11/26/20 13:02 11/26/20 13:30 Temperature Pulse Rate 88 80 Respiratory Rate 11 L Blood Pressure 164/109 H Pulse Oximetry 100 100 MDM - Nausea/Vomiting/Diarrhea <Tray DEMAR Gleason - Last Filed: 11/26/20 14:27> Differential Diagnosis Differential diagnosis: Likely gastroenteritis, dehydration and other (Electrolyte imbalance, infectious GI illness, colitis) Medical Records Attestation: I reviewed the patient's medical records. Lab Data Attestation: I reviewed the patient's lab results. Result diagrams: 11/26/20 11:54 11/26/20 11:54 Labs: Lab Results 11/26/20 11/26/20 11/26/20 Range/Units 11:54 11:54 11:54 WBC 16.1 H D (4.5-11.0) X10^3/uL RBC 5.27 (4.5-5.9) X10^6/uL Hgb 15.4 (13.5-17.5) g/dL Hct 43.5 (41-53) % MCV 82.7 (80-100) fL MCH 29.2 (26-34) PG MCHC 35.3 (30-36) % RDW 12.4 (11.6-14.8) % Plt Count 358 (150-400) X10^3/uL Neut % (Auto) 81.9 H (50-75) % Lymph % (Auto) 12.8 L (25-40) % [place] % (Auto) 4.5 (3-14) % Eos % (Auto) 0.1 L (2-4) % Baso % (Auto) 0.7 (0-2) % Neut # (Auto) 79678 H (1563-3273) /uL Lymph # (Auto) 2100 (4329-1836) /uL [place] # (Auto) 700 (0-900) /uL Eos # (Auto) 0 (0-450) /uL Baso # (Auto) 100 (0-100) /uL Sodium 131 L (137-145) mmol/L Potassium 2.6 L* D (3.4-5.1) mmol/L Chloride 92 L (98-107) mmol/L Carbon Dioxide 30 (22-32) mmol/L BUN 5 L (9-20) mg/dL Creatinine 0.69 (0.66-1.25) mg/dL Estimated GFR > 60.0 (>60) mL/min BUN/Creatinine Ratio 7.2 (6-22) Glucose 126 H (70-100) mg/dL Lactate (0.7-2.1) mmol/L Calcium 9.6 (8.4-10.2) mg/dL Phosphorus 2.0 L (2.5-4.5) mg/dL Magnesium 1.8 (1.6-2.3) mg/dL Total Bilirubin 0.8 (0.2-1.3) mg/dL AST 53 (17-59) IU/L ALT 25 (<50) IU/L Alkaline Phosphatase 79 (38-126) U/L Total Protein 7.5 (6.3-8.2) g/dL Albumin 4.9 (3.5-5.0) g/dL Globulin 2.6 (1.7-4.1) g/dL Albumin/Globulin Ratio 1.9 (1.0-2.8) Procalcitonin < 0.05 (<0.5) ng/mL SARS-CoV-2 (PCR) (Negative) 11/26/20 11/26/20 Range/Units 11:54 13:23 WBC (4.5-11.0) X10^3/uL RBC (4.5-5.9) X10^6/uL Hgb (13.5-17.5) g/dL Hct (41-53) % MCV (80-100) fL MCH (26-34) PG MCHC (30-36) % RDW (11.6-14.8) % Plt Count (150-400) X10^3/uL Neut % (Auto) (50-75) % Lymph % (Auto) (25-40) % [place] % (Auto) (3-14) % Eos % (Auto) (2-4) % Baso % (Auto) (0-2) % Neut # (Auto) (3989-3304) /uL Lymph # (Auto) (9089-1341) /uL [place] # (Auto) (0-900) /uL Eos # (Auto) (0-450) /uL Baso # (Auto) (0-100) /uL Sodium (137-145) mmol/L Potassium (3.4-5.1) mmol/L Chloride (98-107) mmol/L Carbon Dioxide (22-32) mmol/L BUN (9-20) mg/dL Creatinine (0.66-1.25) mg/dL Estimated GFR (>60) mL/min BUN/Creatinine Ratio (6-22) Glucose (70-100) mg/dL Lactate 1.3 (0.7-2.1) mmol/L Calcium (8.4-10.2) mg/dL Phosphorus (2.5-4.5) mg/dL Magnesium (1.6-2.3) mg/dL Total Bilirubin (0.2-1.3) mg/dL AST (17-59) IU/L ALT (<50) IU/L Alkaline Phosphatase (38-126) U/L Total Protein (6.3-8.2) g/dL Albumin (3.5-5.0) g/dL Globulin (1.7-4.1) g/dL Albumin/Globulin Ratio (1.0-2.8) Procalcitonin (<0.5) ng/mL SARS-CoV-2 (PCR) Negative (Negative) Urine Dip Bedside Urine Glucose Negative Bedside Urine Bilirubin - Negative Bedside Urine Ketone +/- 5 Urine Specific [place] 1.010 Bedside Urine Occult Blood - Negative Bedside Urine pH 8.0 Bedside Urine Protein - Negative Bedside Urine Leukocytes - Negative Esterase Imaging Data CT scan - abdomen/pelvis: Radiologist's Impression: Heraclio Khan 30 M [address] [id number] Scan ReportSigned Patient: Heraclio Khan CMR#: [id number]: 1990Acct:[id number]/Sex: 30 / MDate of Service: 11/26/20Loc: EDAccession Number: [id number] Procedure: CT abdomen pelvis w con Ordering Provider: Tray Gleason PROCEDURE: CT ABDOMEN PELVIS W CON INDICATIONS: epigastric pain, vomiting/diarrhea, WBC TECHNIQUE: After the administration of intravenous contrast, 5 mm thick sections acquired from the diaphragm to the symphysis. 5 mm coronal and sagittal reformats were acquired. For radiation dose reduction, the following was used: automated exposure control, adjustment of mA and/or kV according to patient size. COMPARISON: [facility], CT, CT CHEST ABD PEL W CON, 09/25/2020, 7:28. US, ABDOMEN COMPLETE, 04/18/2014, 9:22. [facility], CT, CT ANGIO CHEST PE PROTOCOL, 09/15/2020, 7:38. [facility], CT, CT ABDOMEN PELVIS W CON, 09/18/2020, 10:44. FINDINGS: Image quality: Excellent. ABDOMEN: Lung bases: Lung bases are clear. Heart size is normal. Small hiatal hernia. Solid organs: Liver is normal in size and enhancement. Gallbladder is normal. Biliary system is non dilated. Pancreas enhances normally. Spleen is normal in size and enhancement. No adrenal nodules. Kidneys demonstrate normal size and enhan cement, without hydronephrosis. Peritoneum and bowel: Stomach is distended with an air-fluid level. There may be mild gastric antral thickening. Small bowel loops are normal in caliber. There is mild colonic wall thickening involving the hepatic flexure, transverse colon, splenic flexure, descending and sigmoid colon, consistent with mild colitis. Normal appendix. No free fluid or air. Nodes and vessels: No retroperitoneal or mesenteric adenopathy by size criteria. Aorta and inferior vena cava are normal in size. Miscellaneous: No ventral hernias. PELVIS: Genitourinary: Bladder wall thickness is normal. Miscellaneous: No inguinal hernias or adenopathy. Bones: No suspicious bony lesions. No vertebral body compression fractures. IMPRESSION: 1. Diffuse colonic wall thickening from hepatic fractures through sigmoid colon consistent with colitis. Differential diagnosis include infectious etiology versus inflammatory bowel disease. 2. Distended stomach with an air-fluid level in the gastric lumen. Mild gastric antral thickening may be present. Differential diagnosis include gastritis versus mild gastric outlet obstruction. Dictated by: Renzo Yen M.D. on 11/26/2020 at 13:12 Approved by: Renzo Yen M.D. on 11/26/2020 at 13:23 MDM Narrative Medical decision making narrative: This is a 30-year-old male who presents to ED with recurring nausea, vomiting, diarrhea for last 12 hours after failing outpatient antiemetic medication Zofran and with generalized weakness. Patient has been visiting ED several times prior for similar symptoms. No abdominal tenderness to palpate with hypoactive bowel sounds per physical exam. Patient appears to be lethargic upon arrival. Lab tests shows hypokalemia of 2.6, hypophosphatemia of 2.0, hyponatremia of 131, chloride of 92. No significant signs of dehydration. Glucose 126. CBC shows leukocytosis of 16.1 with left shift of neutrophils 81.9%. H&H is stable with 15.4/43.5. Given elevated white count as compared to 2 days ago which was 10.7, concerned for any infectious or surgical abdominal etiology, CT of abdomen/pelvis obtained. CT test shows mild colitis from hepatic flexure through sigmoid colon and distended stomach with air-fluid level in gastric lumen concerns for gastritis versus mild gastric ou tlet obstruction. Patient was treated with IV fluid, K rider 40 mEq IV, PO 40 mEq, Na/Phos/Potassium PO replacement, IV protonix which improved nausea and symptoms. Findings discussed with Dr. Bhagat and he kindly accepted patient's care to correct electrolytes imbalance, hydration, nausea management, and possible scoping the patient with General surgery consultation. <Miguelito Moreland, - Last Filed: 11/26/20 15:06> Lab Data Labs: Lab Results 11/26/20 11/26/20 11/26/20 Range/Units 11:54 11:54 11:54 WBC 16.1 H D (4.5-11.0) X10^3/uL RBC 5.27 (4.5-5.9) X10^6/uL Hgb 15.4 (13.5-17.5) g/dL Hct 43.5 (41-53) % MCV 82.7 (80-100) fL MCH 29.2 (26-34) PG MCHC 35.3 (30-36) % RDW 12.4 (11.6-14.8) % Plt Count 358 (150-400) X10^3/uL Neut % (Auto) 81.9 H (50-75) % Lymph % (Auto) 12.8 L (25-40) % [place] % (Auto) 4.5 (3-14) % Eos % (Auto) 0.1 L (2-4) % Baso % (Auto) 0.7 (0-2) % Neut # (Auto) 61193 H (2790-8339) /uL Lymph # (Auto) 2100 (8616-6794) /uL [place] # (Auto) 700 (0-900) /uL Eos # (Auto) 0 (0-450) /uL Baso # (Auto) 100 (0-100) /uL Sodium 131 L (137-145) mmol/L Potassium 2.6 L* D (3.4-5.1) mmol/L Chloride 92 L (98-107) mmol/L Carbon Dioxide 30 (22-32) mmol/L BUN 5 L (9-20) mg/dL Creatinine 0.69 (0.66-1.25) mg/dL Estimated GFR > 60.0 (>60) mL/min BUN/Creatinine Ratio 7.2 (6-22) Glucose 126 H (70-100) mg/dL Lactate (0.7-2.1) mmol/L Calcium 9.6 (8.4-10.2) mg/dL Phosphorus 2.0 L (2.5-4.5) mg/dL Magnesium 1.8 (1.6-2.3) mg/dL Total Bilirubin 0.8 (0.2-1.3) mg/dL AST 53 (17-59) IU/L ALT 25 (<50) IU/L Alkaline Phosphatase 79 (38-126) U/L Total Protein 7.5 (6.3-8.2) g/dL Albumin 4.9 (3.5-5.0) g/dL Globulin 2.6 (1.7-4.1) g/dL Albumin/Globulin Ratio 1.9 (1.0-2.8) Procalcitonin < 0.05 (<0.5) ng/mL SARS-CoV-2 (PCR) (Negative) 11/26/20 11/26/20 Range/Units 11:54 13:23 WBC (4.5-11.0) X10^3/uL RBC (4.5-5.9) X10^6/uL Hgb (13.5-17.5) g/dL Hct (41-53) % MCV (80-100) fL MCH (26-34) PG MCHC (30-36) % RDW (11.6-14.8) % Plt Count (150-400) X10^3/uL Neut % (Auto) (50-75) % Lymph % (Auto) (25-40) % [place] % (Auto) (3-14) % Eos % (Auto) (2-4) % Baso % (Auto) (0-2) % Neut # (Auto) (7642-8080) /uL Lymph # (Auto) (2586-8638) /uL [place] # (Auto) (0-900) /uL Eos # (Auto) (0-450) /uL Baso # (Auto) (0-100) /uL Sodium (137-145) mmol/L Potassium (3.4-5.1) mmol/L Chloride (98-107) mmol/L Carbon Dioxide (22-32) mmol/L BUN (9-20) mg/dL Creatinine (0.66-1.25) mg/dL Estimated GFR (>60) mL/min BUN/Creatinine Ratio (6-22) Glucose (70-100) mg/dL Lactate 1.3 (0.7-2.1) mmol/L Calcium (8.4-10.2) mg/dL Phosphorus (2.5-4.5) mg/dL Magnesium (1.6-2.3) mg/dL Total Bilirubin (0.2-1.3) mg/dL AST (17-59) IU/L ALT (<50) IU/L Alkaline Phosphatase (38-126) U/L Total Protein (6.3-8.2) g/dL Albumin (3.5-5.0) g/dL Globulin (1.7-4.1) g/dL Albumin/Globulin Ratio (1.0-2.8) Procalcitonin (<0.5) ng/mL SARS-CoV-2 (PCR) Negative (Negative) Urine Dip Bedside Urine Glucose Negative Bedside Urine Bilirubin - Negative Bedside Urine Ketone +/- 5 Urine Specific [place] 1.010 Bedside Urine Occult Blood - Negative Bedside Urine pH 8.0 Bedside Urine Protein - Negative Bedside Urine Leukocytes - Negative Esterase Discharge Plan Departure Patient Disposition: Admitted As Inpatient Clinical Impression: Hypokalemia due to excessive gastrointestinal loss of potassium, Vomiting and diarrhea, Colitis Admit Date/Time: 11/26/20 13:38 Admit Provider: Dariel Bhagat <Miguelito Moreland DO - Last Filed: 11/26/20 15:06> Cosign ED Attending Cosignature Attestation: Dr Moreland Co-Sign Statement: I was available for consultation during this patient's emergency department visit. This chart is signed by myself for administrative purposes only. I did not have direct contact with this patient during this visit. They were seen independe ntly by the APC.
[2020-11-26 13:05] LABS: Procalcitonin < 0.05 ng/mL (<0.5)
[2020-11-26] MEDS: POTASSIUM CHLORIDE 40 MEQ in SODIUM CHLORIDE 0.9% 500 ML 130 ML IV ×2 (13:15→19:25)
[2020-11-26 13:46] LABS: COVID19 -Nasal RAPID Negative (Negative)
[2020-11-26] MEDS: SODIUM,POTASSIUM PHOSPHATES PACKET 2 EACH PO (13:53)
[2020-11-26] MEDS: POTASSIUM CHLORIDE 20 MEQ TAB 40 MEQ PO (13:54)
--- NOTE | 2020-11-26 13:54 | PC.NURSE ---
pt give phosphorus, carafate, and PO K+ which he vomited about 5 min after admin. Tray, TRAFFIC COURT MAGISTRATE made aware
--- NOTE | 2020-11-26 15:02 | P.HP_ITS ---
History of Present Illness History of Present Illness Date Patient Seen: 11/26/20 Time Patient Seen: 14:30 Chief complaint: Needs Fluids Narrative: Patient is a 30-year-old male with history of major depression and anxiety presents back to ED with symptoms of persistent nausea, vomiting and diarrhea. Patient diagnosed with COVID-19 in September 2020. He states that since then he has had persistent symptoms of nausea, frequent vomiting as well as diarrhea. He has had issues with hypokalemia. He was last in the ED on November 24 and had a potassium of 2.2. He was treated in ED and discharged home. Patient states he throws up multiple times a day with vomitus consisting of bilious material. He has not had hematemesis or coffee-ground emesis. He states he typically has 2 diarrhea bowel movements a day that look like bile but he has not noticed any blood in the stool. He has also been experiencing epigastric pain during the past couple of months which he rates as severe. He states he has lost 20 lb since onset of GI symptoms. On September [address] which showed segmental wall thickening of transverse, descending and sigmoid colon. He had repeat CT imaging today which shows diffuse colon wall thickening from hepatic flexure through sigmoid colon consistent with colitis. Also noted his stomach looked distended with an air-fluid level in the gastric lumen and possible mild gastric antral thickening. Patient has been seeing a counselor and psychiatrist for anxiety and depression and feels his anxiety is related to current symptomatology. 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 He is a nonsmoker. He states he has not had alcohol for the past month. Previous urine tox screens positive for cannabis. He denies family history of inflammatory bowel disease or other GI disease. Patient History Medical History (Updated 11/26/20 @ 13:37 by DEMAR Baker) Alcohol use disorder Generalized anxiety disorder (~2005) Hip pain History of panic attacks Low back pain Major depressive disorder, recurrent episode, severe Pneumonia due to 2019 novel coronavirus Family & Social History Family History Father Alcoholism Mother Diabetes mellitus Social History: household members friend(s) Prior Living Arrangements House Safety & Behavioral: Feels Safe in Current Yes Environment Been Physically Hurt or No Threatened By a Person Suicidal Ideation Description None Suicide Plan Description No Plan Tobacco & Substance use: Smoking Status Former smoker alcohol intake former alcohol intake frequency 0-2 drinks per day Substance Use Type marijuana Meds Home Medications and Allergies Home Medications Medication Instructions Recorded Confirmed Type trazodone 100 mg tablet 100 mg PO BEDTIME PRN #90 tab 08/05/20 10/15/20 Rx lamotrigine 150 mg tablet 300 mg PO DAILY 30 Days #60 tab 09/10/20 10/15/20 Rx guanfacine 1 mg tablet 1 mg PO BEDTIME #30 tab 10/15/20 10/15/20 Rx guanfacine 3 mg tablet,extended 3 mg PO QPM #30 tab 10/15/20 10/15/20 Rx release 24 hr propranolol 10 mg tablet 10 mg PO TID 10/15/20 10/15/20 History escitalopram oxalate 10 mg tablet 20 mg PO DAILY 30 Days #60 tab 11/10/20 Rx gabapentin 400 mg capsule 400 mg PO TID PRN #180 cap 11/17/20 Rx metoclopramide HCl 5 mg tablet 5 mg PO QACHS PRN #14 tab 11/24/20 11/24/20 Rx promethazine 25 mg [address] Q4-6H PRN #12 ea 11/24/20 11/24/20 Rx suppository sucralfate 100 mg/mL oral 10 ml PO QACHS #200 ml 11/24/20 11/24/20 Rx suspension lisinopril 5 mg PO DAILY #60 tab 11/25/20 Rx metoclopramide HCl [Reglan] 10 mg PO Q8HR PRN #60 tab 11/25/20 Rx Allergies Allergy/AdvReac Type Severity Reaction Status Date / Time No Known Drug Allergies Allergy Verified 10/15/20 16:09 Review of Systems Review of Systems ROS: Yes All systems reviewed with the patient and are negative except as otherwise documented Exam Vital Signs (past 8 hours): - 11/26/20 11:45 11/26/20 12:30 11/26/20 13:01 Temperature 97.9 F Pulse Rate 79 77 101 H Respiratory Rate 16 Blood Pressure 159/110 H Pulse Oximetry 98 100 90 L 11/26/20 13:02 11/26/20 13:30 11/26/20 13:53 Temperature Pulse Rate 88 80 80 Respiratory Rate 11 L 7 L Blood Pressure 164/109 H 165/124 H Pulse Oximetry 100 100 100 11/26/20 14:00 11/26/20 14:10 Temperature 97.9 F Pulse Rate 89 81 Respiratory Rate 15 16 Blood Pressure 163/118 H 165/113 H Pulse Oximetry 99 99 Oxygen Delivery Method Room Air Oxygen Flow Rate 0 Narrative Exam Narrative: General: Young male who is cooperative but appears quite uncomfortable HEENT: Nontraumatic, sclera anicteric, oropharynx without ulcerations Neck: No lymphadenopathy Heart: Normal S1 and S2, regular rate and rhythm, no murmur Abdomen: Nondistended, guarding and tenderness to palpation present in epi gastrium, no abdominal mass, no HSM Extremities: Warm, dry, no edema Neurological: Affect okay Objective Labs Result Diagrams: 11/26/20 11:54 11/26/20 11:54 Labs: Laboratory Results - last 24 hr 11/26/20 11/26/20 11/26/20 11:54 11:54 11:54 WBC 16.1 H D RBC 5.27 Hgb 15.4 Hct 43.5 MCV 82.7 MCH 29.2 MCHC 35.3 RDW 12.4 Plt Count 358 Neut % (Auto) 81.9 H Lymph % (Auto) 12.[address] [place] % (Auto) 4.5 Eos % (Auto) 0.1 L Baso % (Auto) 0.7 Neut # (Auto) 76215 H Lymph # (Auto) 2[address] [place] # (Auto) 700 Eos # (Auto) 0 Baso # (Auto) 100 Sodium 131 L Potassium 2.6 L* D Chloride 92 L Carbon Dioxide 30 BUN 5 L Creatinine 0.69 Estimated GFR > 60.0 BUN/Creatinine Ratio 7.2 Glucose 126 H Lactate Calcium 9.6 Phosphorus 2.0 L Magnesium 1.8 Total Bilirubin 0.8 AST 53 ALT 25 Alkaline Phosphatase 79 Total Protein 7.5 Albumin 4.9 Globulin 2.6 Albumin/Globulin Ratio 1.9 Procalcitonin < 0.05 SARS-CoV-2 (PCR) 11/26/20 11/26/20 11:54 13:23 WBC RBC Hgb Hct MCV MCH MCHC RDW Plt Count Neut % (Auto) Lymph % (Auto) [place] % (Auto) Eos % (Auto) Baso % (Auto) Neut # (Auto) Lymph # (Auto) [place] # (Auto) Eos # (Auto) Baso # (Auto) Sodium Potassium Chloride Carbon Dioxide BUN Creatinine Estimated GFR BUN/Creatinine Ratio Glucose Lactate 1.3 Calcium Phosphorus Magnesium Total Bilirubin AST ALT Alkaline Phosphatase Total Protein Albumin Globulin Albumin/Globulin Ratio Procalcitonin SARS-CoV-2 (PCR) Negative Assessment & Plan Assessment & Plan narrative: This is a 30-year-old male with history of major depression and anxiety, COVID-19 in September 2020, presents with persistent GI symptomology with nausea, intractable vomiting and persistent diarrhea over the past 2 months. 1. Intractable nausea and vomiting -symptoms present x2 months, gastric distention noted on CT, differential includes inflammatory bowel disease, gastritis or esophagitis, peptic ulcer disease, malignancy -leukocytosis WBC 16.1 likely due to vomiting, LFTs and lactate are normal -NPO, IV hydration, monitor electrolytes -Protonix 40 mg IV b.i.d. -morphine 1-2 mg IV q.4 hours as needed -Zofran IV as needed -consult Dr. Nassar for EGD 2. Colitis -patient with nonbloody diarrhea less than 5 bowel movements a day and 20 lb weight loss in 2 months -CT findings of colon wall thickening present since September 2020, differential diagnosis includes inflammatory bowel disease, infectious less likely based on chronicity of symptoms -await diagnostic colonoscopy 3. Persistent hypokalemia due to vomiting -received IV and oral potassium replacement in ED, magnesium is 1.8 -recheck lytes with 6:00 p.m. blood draw and in a.m. 4. Major depression and anxiety -followed by Moon [facility] -continue home medications 5. Acute on chronic hypertension -treat pain for acute component -continue patient's lisinopril, also takes for anxiety guanfacine and propranolol to be continued Quality VTE Deep Vein Thrombosis/Pulmonary Embolism Present on Admission: No
--- NOTE | 2020-11-26 15:17 | PC.NURSE ---
Admission process started. Admit form and skin check completed. MD Bhagat made aware of bp 165/113. Pt is reporting pain in his abd. Had some nausea when he came to the ED but it has resolved now. pt initially clear liquids and then changed to NPO status per Dr. Nassar. Pt is aware of same. Cont w/poc.
[2020-11-26] MEDS: MORPHINE 2 MG/ML INJ IV ×4 (15:21→21:44)
[2020-11-26] MEDS: SODIUM CHLORIDE 0.9% 1,000 ML 150 ML IV (15:48)
--- NOTE | 2020-11-26 17:43 | PM.CN ---
History of Present Illness Consult details Date Patient Seen: 11/26/20 Time Patient Seen: 17:00 Chief complaint: Needs Fluids Reason for consult: Nausea vomiting and diarrhea and possible colitis Requesting provider: Dariel Bhagat Narrative: Patient is a gentleman who contracted COVID pneumonia in September of 2020. Since that time he has had difficulty tolerating p.o.. He has also developed bilious vomiting and up to twice a day loose stools/diarrhea. He denies hematemesis. He denies blood in his stool. He was not having any of these problems before margot COVID. He denies abdominal pain. He does have epigastric pain that is related to reflux he says. He was placed on omeprazole but did not seem to get any better and stopped it and has been taking Mylanta twice a day. He was apparently also prescribed Reglan. He denies any abdominal operations in the past. In fact he has not had any operations per his history. He has been living on apple sauce and occasional stool teens. He even tolerates these interim poorly. He states that he has lost 20 lb since September. He does have well water at his home but has had it recently tested and that is okay he said. He does drink bottled water as well. Meds Home Medications and Allergies Home Medications Medication Instructions Recorded Confirmed Type trazodone 100 mg tablet 100 mg PO BEDTIME PRN #90 tab 08/05/20 11/26/20 Rx lamotrigine 150 mg tablet 300 mg PO DAILY 30 Days #60 tab 09/10/20 11/26/20 Rx guanfacine 1 mg tablet 1 mg PO BEDTIME #30 tab 10/15/20 11/26/20 Rx guanfacine 3 mg tablet,extended 3 mg PO QPM #30 tab 10/15/20 11/26/20 Rx release 24 hr propranolol 10 mg tablet 10 mg PO TID 10/15/20 11/26/20 History escitalopram oxalate 10 mg tablet 20 mg PO DAILY 30 Days #60 tab 11/10/20 11/26/20 Rx gabapentin 400 mg capsule 400 mg PO TID PRN #180 cap 11/17/20 11/26/20 Rx metoclopramide HCl 5 mg tablet 5 mg PO QACHS PRN #14 tab 11/24/20 11/26/20 Rx promethazine 25 mg rectal 25 mg TN Q4-6H PRN #12 ea 11/24/20 11/26/20 Rx suppository sucralfate 100 mg/mL oral 10 ml PO QACHS #200 ml 11/24/20 11/26/20 Rx suspension lisinopril 5 mg PO DAILY #60 tab 11/25/20 11/26/20 Rx metoclopramide HCl [Reglan] 10 mg PO Q8HR PRN #60 tab 11/25/20 11/26/20 Rx Allergies Allergy/AdvReac Type Severity Reaction Status Date / Time No Known Drug Allergies Allergy Verified 10/15/20 16:09 Review of Systems Review of Systems Narrative: Patient denies any fever or chills at this time. No cough or cold. No heart problems he is aware of no murmurs. No problems urinating or blood in his urine Exam Vital Signs (past 8 hours): - 11/26/20 11:45 11/26/20 12:30 11/26/20 13:01 Temperature 97.9 F Pulse Rate 79 77 101 H Respiratory Rate 16 Blood Pressure 159/110 H Pulse Oximetry 98 100 90 L 11/26/20 13:02 11/26/20 13:30 11/26/20 13:53 Temperature Pulse Rate 88 80 80 Respiratory Rate 11 L 7 L Blood Pressure 164/109 H 165/124 H Pulse Oximetry 100 100 100 11/26/20 14:00 11/26/20 14:10 11/26/20 15:25 Temperature 97.9 F 98.3 F Pulse Rate 89 81 82 Respiratory Rate 15 16 16 Blood Pressure 163/118 H 165/113 H 166/125 H Pulse Oximetry 99 99 100 11/26/20 16:00 11/26/20 17:12 Temperature Pulse Rate Respiratory Rate 17 Blood Pressure 156/127 H Pulse Oximetry 99 Oxygen Delivery Method Room Air Oxygen Flow Rate 0 Narrative Exam Narrative: Cooperative in no apparent distress. Rather pale and weak appearing. Eyes are nonicteric. Pupils equal round reactive to light. Conjunctiva pink. Ears without lesion. Oral mucosa is dry no open lesions appreciated. Teeth are intact. Patient's neck is supple there are no nodes in the neck or supraclavicular areas. Trachea is midline mobile. Thyroid is not enlarged. Lungs are clear to auscultation without rales or rhonchi. Equal percussion. Heart regular rate and rhythm without murmur gallop. No heave lift or thrill. 2+ pulses at the wrist and feet dorsalis pedis. Abdomen is very slightly protuberant soft. Absolutely nontender. No guarding. No enlargement of the liver spleen is appreciated. Patient is alert and oriented x3. Speech rate is a little slowed. Content is appropriate. The patient is affect is flat. Skin texture is normal to 2+ turgor is slightly reduced 1 to 2/2 +. No open lesions are appreciated to the skin. Objective Imaging CT scan - abdomen: My impression: Dilated fluid-filled stomach. Air and fluid in the duodenum. Small bowel normal caliber. Colon is collapsed. There may be thickening of the wall consistent with colitis. Part of this appearance may be due to a lack of stool in the colon. Radiologist's impression: PROCEDURE: CT ABDOMEN PELVIS W CON INDICATIONS: epigastric pain, vomiting/diarrhea, WBC TECHNIQUE: After the administration of intravenous contrast, 5 mm thick sections acquired from the diaphragm to the symphysis. 5 mm coronal and sagittal reformats were acquired. For radiation dose reduction, the following was used: automated exposure control, adjustment of mA and/or kV according to patient size. COMPARISON: [facility], CT, CT CHEST ABD PEL W CON, 09/25/2020, 7:28. US, ABDOMEN COMPLETE, 04/18/2014, 9:22. [facility], CT, CT ANGIO CHEST PE PROTOCOL, 09/15/2020, 7:38. [facility], CT, CT ABDOMEN PELVIS W CON, 09/18/2020, 10:44. FINDINGS: Image quality: Excellent. ABDOMEN: Lung bases: Lung bases are clear. Heart size is normal. Small hiatal hernia. Solid organs: Liver is normal in size and enhancement. Gallbladder is normal. Biliary system is non dilated. Pancreas enhances normally. Spleen is normal in size and enhancement. No adrenal nodules. Kidneys demonstrate normal size and enhancement, without hydronephrosis. Peritoneum and bowel: Stomach is distended with an air-fluid level. There may be mild gastric antral thickening. Small bowel loops are normal in caliber. There is mild colonic wall thickening involving the hepatic flexure, transverse colon, splenic flexure, descending and sigmoid colon, consistent with mild colitis. Normal appendix. No free fluid or air. Nodes and vessels: No retroperitoneal or mesenteric adenopathy by size criteria. Aorta and inferior vena cava are normal in size. Miscellaneous: No ventral hernias. PELVIS: Genitourinary: Bladder wall thickness is normal. Miscellaneous: No inguinal hernias or adenopathy. Bones: No suspicious bony lesions. No vertebral body compression fractures. IMPRESSION: 1. Diffuse colonic wall thickening from hepatic fractures through sigmoid colon consistent with colitis. Differential diagnosis include infectious etiology versus inflammatory bowel disease. 2. Distended stomach with an air-fluid level in the gastric lumen. Mild gastric antral thickening may be present. Differential diagnosis include gastritis versus mild gastric outlet obstruction. Labs Result Diagrams: 11/26/20 11:54 11/26/20 11:54 Labs: Laboratory Results - last 24 hr 11/26/20 11/26/20 11/26/20 11:54 11:54 11:54 WBC 16.1 H D RBC 5.27 Hgb 15.4 Hct 43.5 MCV 82.7 MCH 29.2 MCHC 35.3 RDW 12.4 Plt Count 358 Neut % (Auto) 81.9 H Lymph % (Auto) 12.8 L [place] % (Auto) 4.5 Eos % (Auto) 0.1 L Baso % (Auto) 0.7 Neut # (Auto) 68669 H Lymph # (Auto) 2100 [place] # (Auto) 700 Eos # (Auto) 0 Baso # (Auto) 100 Sodium 131 L Potassium 2.6 L* D Chloride 92 L Carbon Dioxide 30 BUN 5 L Creatinine 0.69 Estimated GFR > 60.0 BUN/Creatinine Ratio 7.2 Glucose 126 H Lactate Calcium 9.6 Phosphorus 2.0 L Magnesium 1.8 Total Bilirubin 0.8 AST 53 ALT 25 Alkaline Phosphatase 79 Total Protein 7.5 Albumin 4.9 Globulin 2.6 Albumin/Globulin Ratio 1.9 Procalcitonin < 0.05 SARS-CoV-2 (PCR) 11/26/20 11/26/20 11:54 13:23 WBC RBC Hgb Hct MCV MCH MCHC RDW Plt Count Neut % (Auto) Lymph % (Auto) [place] % (Auto) Eos % (Auto) Baso % (Auto) Neut # (Auto) Lymph # (Auto) [place] # (Auto) Eos # (Auto) Baso # (Auto) Sodium Potassium Chloride Carbon Dioxide BUN Creatinine Estimated GFR BUN/Creatinine Ratio Glucose Lactate 1.3 Calcium Phosphorus Magnesium Total Bilirubin AST ALT Alkaline Phosphatase Total Protein Albumin Globulin Albumin/Globulin Ratio Procalcitonin SARS-CoV-2 (PCR) Negative Assessment & Plan Assessment & Plan narrative: Patient with chronic GI symptoms since COVID infection in September. He has an elevated white blood cell count and a normal hematocrit. There is a preponderance of segs but his procalcitonin is low. Lactate is normal. Abdominal exam is benign. He is having diarrhea but no blood in his stool and this is consistent with his normal hematocrit. It is possible he is dehydrated and his crit will drop however, once he is hydrated. His potassium and phosphate are low. These are being replaced. His sodium and chloride are also low and these are being replaced. Given his history of alcohol abuse even though he has not had anything to drink per his history since September it may be prudent to give him a banana bag and some magnesium. It then would be safe most likely to give him some dextrose fluid. In any event he would benefit from an EGD to determine why he has persistent vomiting. The diarrhea could be related to a colitis that is infectious or could be medication related or even I suppose COVID related in some way. The fact that he is having bilious vomiting suggest that he does not have a gastric outlet obstruction but he could have a duodenal obstruction further downstream. It would be impossible to prep him for colonoscopy from above. I think the best we can do is fleets enema from below and perform a in flexible sigmoidoscopy as far as the scope allowed. An EGD would also be helpful but it probably will need to be done with airway protection by intubating the patient due to the gastric distension. Will continue to correct his electrolytes through the night and hydrate him. X-rays in the morning to see how all dilated his stomach bubble is. EGD and colonoscopy be/flex sig tomorrow. This has been discussed with the patient including risks of bleeding and perforation. Stool studies are pending. The patient has not been able to give the specimen yet.
[2020-11-26 18:10] LABS: BUN Creatinine Ratio 5.6 (6-22); Blood Urea Nitrogen 3 mg/dL (9-20); Calcium 8.2 mg/dL (8.4-10.2); Carbon Dioxide 31 mmol/L (22-32); Chloride 96 mmol/L (98-107); Estimated Glomerular Filt Rate > 60.0 mL/min (>60); Glucose 109 mg/dL (70-100); HEMOLYSIS < 15 (0-50); Potassium 3.2 mmol/L (3.4-5.1); Sodium 132 mmol/L (137-145)
[2020-11-26] MEDS: POTASSIUM PHOSPHATE 15 MMOL in DEXTROSE 5% IN WATER 250 ML 63.75 ML IV (18:51)
[2020-11-26] MEDS: ONDANSETRON 4 MG/2 ML INJ IV (18:51)
[2020-11-26] MEDS: MAGNESIUM SULFATE 2 GM, FOLIC ACID 1 MG, THIAMINE 100 MG, MULTIVITAMIN 10 ML in SODIUM ... IV (19:26)
[2020-11-26] MEDS: GUANFACINE 1 MG TABLET PO (21:44)
[2020-11-26] MEDS: PROPRANOLOL 10 MG TABLET PO (21:46)
[2020-11-27] VITALS (19 sets, daily range): BP systolic 108–147; BP diastolic 61–96; PULSE 49–76; RESP 12–18; TEMP 35.8–36.7; O2SAT 97–100; BMI 26.4
--- NOTE | 2020-11-27 | PATH_ITS ---
[facility] Accession Number: [id number] . 01 Material submitted: . PART A: duodenum - DUODENAL BIOPSIES PART B: gastrointestinal site - STOMACH BIOPSIES PART C: gastrointestinal site - STOMACH PLAQUE PART D: esophagus - ESOPHAGEAL BIOPSIES PART E: body - RANDOM BIOPSIES . 01 Clinical history: . NEEDS FLUIDS . 02 Diagnosis: A. Duodenum, Biopsies: Small bowel mucosa with no diagnostic abnormality. Negative for active inflammation, features of sprue, dysplasia, or malignancy. . B. Stomach, Biopsies: Gastric antral and body mucosa with minimal chronic inflammation. Negative for Helicobacter organisms by immunohistochemistry. Negative for intestinal metaplasia. Negative for dysplasia or malignancy. . C. Stomach, Plaque, Biopsy: Vegetable/foreign material. Superficial fragment of gastric mucosa with no diagnostic abnormality. No evidence of neoplasm. . D. Esophagus, Biopsies: Squamocolumnar junctional mucosa with mild chronic inflammation. Negative for specialized intestinal metaplasia, dysplasia or malignancy. . E. Random Colon, Biopsies: Focal active colitis; please see comment. Negative for granulomata, dysplasia or malignancy. [facility] 12/03/2020 1336 Local . 02 Comment: Part E: The findings in the random colon biopsies are most suggestive of an acute self-limited colitis (infectious versus drug/toxin induced). . 02 Electronically signed: . Krishan Hicks MD, PhD, Pathologist NPI- [id number] . 01 Gross description: . Part A: DUODENAL BIOPSIES: Received in formalin are 2 fragment(s) of bowman, soft tissue measuring 0.1 x 0.1 x 0.1 cm to 0.2 x 0.2 x 0.2 cm submitted entirely in 1 cassette(s) Part B: STOMACH BIOPSIES: Received in formalin are multiple fragment(s) of bowman, soft tissue measuring 0.1 x 0.1 x 0.1 cm to 0.2 x 0.2 x 0.2 cm submitted entirely in 1 cassette(s) Part C: STOMACH PLAQUE: Received in formalin is 1 fragment(s) of bowman, soft tissue measuring 0.1 x 0.1 x 0.1 cm submitted entirely in 1 cassette(s) Part D: ESOPHAGEAL BIOPSIES: Received in formalin are 2 fragment(s) of bowman, soft tissue measuring 0.1 x 0.1 x 0.1 cm to 0.2 x 0.2 x 0.2 cm submitted entirely in 1 cassette(s) Part E: RANDOM BIOPSIES: Received in formalin are multiple fragment(s) of bowman, soft tissue measuring 0.1 x 0.1 x 0.1 cm to 0.3 x 0.3 x 0.3 cm submitted entirely in 1 cassette(s) /CARLOS 11/30/2020 1936 Local . 02 Microscopic: . B. An immunohistochemical stain was performed to evaluate for Helicobacter organisms and is negative. The control stain showed appropriate reactivity. . * This test was developed and its performance characteristics determined by [employer]. It has not been cleared or approved by the U.S. Food and Drug Administration. The FDA has determined that such clearance or approval is not necessary. This test is used for clinical purposes. It should not be regarded as investigational or for research. . 02 Pathologist provided ICD-10: K29.70, K20.90, K52.9 . 02 CPT . 596782, 500450, 628976, 157612, 995299, L25537 Performed at: 01 [facility] [address] [facility], [place], [place] [id number] MD Mauro Noguera MD Phone: [phone] Performed at: 02 [facility] [address] [place], [place] [id number] MD Tiffanie Latif MD Phone: [phone]
--- NOTE | 2020-11-27 00:39 | PC.NURSE ---
Addendum entered by Magaly Aguayo R.N. 11/27/20 04:51: States pain is currently 5/10 and is feeling slightly nauseated; medicated with Morphine and Zofran. Original Note: 0007 patient is alert and oriented with flat affect. Breath sounds diminished but CTA with RA sat of 97%. HRR; telemetry reading was SR. Denies nauesa currently but is having 4/10 epigastric pain so medicated with Morphine. BT present and abdomen is soft. Denies dysuria, frequency or urgency with urination. Able to turn himself in bed. Up to bathroom with SBA or independent. Wearing bilateral calf SCD's. Fall risk score is moderate. NPO for flex sig in a.m.; is aware of order for enema at 0600.
[2020-11-27] MEDS: SODIUM CHLORIDE 0.9% 1,000 ML 150 ML IV ×3 (03:21→20:44)
[2020-11-27] MEDS: ONDANSETRON 4 MG/2 ML INJ IV (04:46)
[2020-11-27] MEDS: MORPHINE 2 MG/ML INJ 1 MG IV ×3 (04:47→13:32)
[2020-11-27 05:16] LABS: Add Manual Diff / Slide Review NO; Basophils Absolute Auto 100 /uL (0-100); Eosinophils Absolute Auto 100 /uL (0-450); Eosinophils Percent Auto 0.9 % (2-4); Hematocrit 36.2 % (41-53); Hemoglobin 12.8 g/dL (13.5-17.5); Lymphocytes Absolute Auto 2700 /uL (1100-4500); Lymphocytes Percent Auto 32.8 % (25-40); Mean Corpuscular HGB Conc 35.3 % (30-36); Mean Corpuscular Hemoglobin 29.5 PG (26-34); Mean Corpuscular Volume 83.8 fL (80-100); Monocytes Absolute Auto 500 /uL (0-900); Monocytes Percent Auto 6.6 % (3-14); Neutrophils Absolute Auto 4800 /uL (1500-7000); Neutrophils Percent Auto 58.7 % (50-75); Platelet Count 262 X10^3/uL (150-400); Red Blood Cell Count 4.32 X10^6/uL (4.5-5.9); Red Cell Distribution Width 12.5 % (11.6-14.8); White Blood Cell Count 8.1 X10^3/uL (4.5-11.0)
[2020-11-27 05:18] LABS: Alanine Aminotransferase 18 IU/L (<50); Albumin 3.5 g/dL (3.5-5.0); Albumin Globulin Ratio 1.8 (1.0-2.8); Alkaline Phosphatase 51 U/L (38-126); Aspartate Aminotransferase 33 IU/L (17-59); BUN Creatinine Ratio 8.2 (6-22); Bilirubin Total 0.6 mg/dL (0.2-1.3); Blood Urea Nitrogen 5 mg/dL (9-20); Calcium 8.2 mg/dL (8.4-10.2); Carbon Dioxide 30 mmol/L (22-32); Chloride 103 mmol/L (98-107); Estimated Glomerular Filt Rate > 60.0 mL/min (>60); Glucose 90 mg/dL (70-100); HEMOLYSIS < 15 (0-50); Potassium 3.3 mmol/L (3.4-5.1); Sodium 134 mmol/L (137-145); Total Protein 5.5 g/dL (6.3-8.2)
[2020-11-27] MEDS: FLEETS ENEMA 1 EACH PR (06:01)
[2020-11-27] MEDS: POTASSIUM CHLORIDE 40 MEQ in SODIUM CHLORIDE 0.9% 500 ML 130 ML IV (06:08)
[2020-11-27] MEDS: ESCITALOPRAM 10 MG TABLET 20 MG PO (09:21)
[2020-11-27] MEDS: lamoTRIgine 100 MG TABLET 300 MG PO (09:21)
[2020-11-27] MEDS: PANTOPRAZOLE 40 MG VIAL IV ×2 (09:22→20:38)
[2020-11-27] MEDS: lisinopriL 5 MG TABLET PO (09:57)
--- NOTE | 2020-11-27 10:02 | PC.NURSE ---
Addendum entered by Va Ordonez R.N. 11/27/20 13:36: 1320 Patient returned to unit via stretcher post procedure, A/O x4, c/o pain 6/10 in upper gastric/chest. PRN morphine 1 mg administered. VS stable, SCD's on, NS @ 150 cc/hr. Call light in reach. Addendum entered by Va Ordonez R.N. 11/27/20 11:01: Patient saline locked, tele removed. Transferred for procedure via wheelchair, report given to Vivi SCHAFFER. Original Note: Patient resting in bed this AM. Reports pain 4/10 in the upper gastric region, reports pain is tolerable. Patient remains NPO, morning medications given with sip of water per Dr. Mackenzie. Patient on tele, SCD's on. Patient denies dizziness, lightheadedness, or SOB. Dr. Pedro aware of low pulse rate, propranolol held per MD. Patient denies nausea at this time. Patient ambulating independently in the room, calls appropriately. Patient had liquid stool, almost clear/green at 1010. Taken for abdominal Xray at 1015.
--- NOTE | 2020-11-27 10:04 | DI.RAD.S_ITS ---
PROCEDURE: XR KUB INDICATIONS: interval change, GOO TECHNIQUE: One view of the abdomen acquired. COMPARISON: [facility], CT, CT ABDOMEN PELVIS W CON, 11/26/2020, 12:51. FINDINGS: Surgical changes and devices: None. Bowel: There are no dilated bowel loops identified. There are air-fluid levels throughout the colon, possibly indicating gastroenteritis. Soft tissues: No suspicious abdominal calcifications. Visualized solid organ contours appear normal in size. Bones: No suspicious bony lesions. IMPRESSION: No evidence of bowel obstruction. Question gastroenteritis. Dictated by: Dejuan Shaw M.D. on 11/27/2020 at 10:24 Approved by: Dejuan Shaw M.D. on 11/27/2020 at 10:33
--- NOTE | 2020-11-27 10:48 | CM.DANOTE ---
DCP/Assessment: Reviewed chart. Patient is a 30yr old male admitted to [facility] with n/v and diarrhea. PCP is Marty Doyle. Primary payor is 1)Allegra Jacobo. Met with patient this AM explained CM/SW role. Patient alert and oriented resting in bed at time of visit. Patient currently NPO and scheduled for colonoscopy/EGD today. Patient reports that he is I in ADL's. Patient [facility] himself [facility]. Patient reports that he had COVID in September 2020 since that time he has had difficulty with n/v. Previously, patient lived with his parents. Currently patient resides with friends. Patient plans to d/c home when medically stable. Patient with h/o depression and anxiety. Patient reports both stable. P: Anticipate home when medically stable. MIGUEL Monson Discharge Planning/Care Management CM Discharge Assessment Start: 11/27/20 10:45 Freq: Status: Active Protocol: Document 11/27/20 10:46 KJS (Rec: 11/27/20 10:48 KJS [id number]) Discharge Planning Assessment Assigned [employer] MIGUEL Monson Contact Information Abdiaziz Khan (Father) ph# Advance Directives? No History Provided By Patient,Medical Record Prior Living Arrangements House Household Members friend(s) Type of transporation used prior to Drives own vehicle admit Comment Patient has car at [facility] parking lot. Independent with ADL's Yes Is patient alert and oriented? Yes Caregiver for Another No Barriers to Discharge No Discharge Plan Home Whiteboard Updated in Patient Room with Yes name and ext. # of [employer] Review Status In Process Next Review Type Continued Stay Review
--- NOTE | 2020-11-27 11:23 | PM.PN.1 ---
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 He has recently moved into his own apartment in town. The propanolol was held this morning due to a heart rate in the 40s. His white blood count was 8.1 with a hemoglobin of 12.8 and normal metabolic panel except for potassium 3.3 and a phosphorus low at 2.0 normal range is 2.5-4.5. His endoscopic findings are very informative: Severe endoscopic gastritis without active bleeding or specific ulcers, white plaques in the stomach, possible fungal infection. Corrugated appearance of esophagus, possible eosinophilic esophagitis Exam Vital Signs (past 8 hours): - 11/27/20 05:00 11/27/20 05:59 11/27/20 08:33 Temperature 98.1 F 97.0 F L Pulse Rate 58 L 49 L Respiratory Rate 18 16 Blood Pressure 129/77 135/77 Pulse Oximetry 100 100 98 11/27/20 09:00 11/27/20 09:57 11/27/20 11:13 Temperature 97 F L Pulse Rate 55 L 60 Respiratory Rate 16 Blood Pressure 135/77 140/96 H Pulse Oximetry 98 100 Oxygen Delivery Method Room Air Oxygen Flow Rate 0 Narrative Exam Narrative: Alert and oriented x3. Mildly distressed Heart is regular rate and rhythm without murmur Lungs are clear to auscultation Abdomen is soft, bowel sounds positive, nontender, no organomegaly. Extremities have no ankle edema Objective Labs Result Diagrams: 11/27/20 04:45 11/27/20 04:45 Labs: Laboratory Results - last 24 hr 11/26/20 11/26/20 11/26/20 11:54 11:54 11:54 WBC 16.1 H D RBC 5.27 Hgb 15.4 Hct 43.5 MCV 82.7 MCH 29.2 MCHC 35.3 RDW 12.4 Plt Count 358 Neut % (Auto) 81.9 H Lymph % (Auto) 12.8 L [place] % (Auto) 4.5 Eos % (Auto) 0.1 L Baso % (Auto) 0.7 Neut # (Auto) 51522 H Lymph # (Auto) 2100 [place] # (Auto) 700 Eos # (Auto) 0 Baso # (Auto) 100 Sodium 131 L Potassium 2.6 L* D Chloride 92 L Carbon Dioxide 30 BUN 5 L Creatinine 0.69 Estimated GFR > 60.0 BUN/Creatinine Ratio 7.2 Glucose 126 H Lactate Calcium 9.6 Phosphorus 2.0 L Magnesium 1.8 Total Bilirubin 0.8 AST 53 ALT 25 Alkaline Phosphatase 79 Total Protein 7.5 Albumin 4.9 Globulin 2.6 Albumin/Globulin Ratio 1.9 Procalcitonin < 0.05 SARS-CoV-2 (PCR) 11/26/20 11/26/20 11/26/20 11:54 13:23 17:53 WBC RBC Hgb Hct MCV MCH MCHC RDW Plt Count Neut % (Auto) Lymph % (Auto) [place] % (Auto) Eos % (Auto) Baso % (Auto) Neut # (Auto) Lymph # (Auto) [place] # (Auto) Eos # (Auto) Baso # (Auto) Sodium 132 L Potassium 3.2 L Chloride 96 L Carbon Dioxide 31 BUN 3 L Creatinine 0.54 L Estimated GFR > 60.0 BUN/Creatinine Ratio 5.6 L Glucose 109 H Lactate 1.3 Calcium 8.2 L Phosphorus Magnesium Total Bilirubin AST ALT Alkaline Phosphatase Total Protein Albumin Globulin Albumin/Globulin Ratio Procalcitonin SARS-CoV-2 (PCR) Negative 11/27/20 11/27/20 04:45 04:45 WBC 8.1 RBC 4.32 L Hgb 12.8 L Hct 36.2 L MCV 83.8 MCH 29.5 MCHC 35.3 RDW 12.5 Plt Count 262 Neut % (Auto) 58.7 D Lymph % (Auto) 32.8 D [place] % (Auto) 6.6 Eos % (Auto) 0.9 L Baso % (Auto) 1.0 Neut # (Auto) 4800 Lymph # (Auto) 2700 [place] # (Auto) 500 Eos # (Auto) 100 Baso # (Auto) 100 Sodium 134 L Potassium 3.3 L Chloride 103 Carbon Dioxide 30 BUN 5 L Creatinine 0.61 L Estimated GFR > 60.0 BUN/Creatinine Ratio 8.2 Glucose 90 Lactate Calcium 8.2 L Phosphorus Magnesium Total Bilirubin 0.6 AST 33 ALT 18 Alkaline Phosphatase 51 Total Protein 5.5 L Albumin 3.5 Globulin 2.0 Albumin/Globulin Ratio 1.8 Procalcitonin SARS-CoV-2 (PCR) [facility] Medical History Alcohol use disorder Generalized anxiety disorder (~2006) Hip pain History of panic attacks Low back pain Major depressive disorder, recurrent episode, severe Pneumonia due to 2019 novel coronavirus Family History Father Alcoholism Mother Diabetes mellitus Social History household members: friend(s) Smoking Status: Former smoker second hand exposure: Yes alcohol intake: former substance use type: marijuana (occassionally to help sleep/ingestible) Assessment & Plan Assessment & Plan narrative: This is a 30-year-old male with history of major depression and anxiety, COVID-19 in September 2020, now presenting with persistent GI symptomatology with nausea, intractable vomiting and persistent diarrhea over the past 2 months. 1. Severe Gastritis -On EGD 11/27: Severe endoscopic gastritis without active bleeding or specific ulcers, white plaques in the stomach, possible fungal infection. Corrugated appearance of esophagus, possible eosinophilic esophagitis -symptoms present x2 months, gastric distention noted on CT -leukocytosis WBC 16.1 likely due to vomiting, LFTs and lactate are normal -continue IV fluid hydration at 150 mL -Protonix 40 mg IV b.i.d. -morphine 1-2 mg IV q.4 hours as needed -Zofran IV as needed -for surgery consultation and EGD with Dr. Trujillo on 11/27 will continue Protonix, and add amoxicillin/Flagyl for possible H pylori and will add IV fluconazole for possible fungal gastritis 2. Colitis -patient with nonbloody diarrhea less than 5 bowel movements a day and 20 lb weight loss in 2 months -CT findings of colon wall thickening present since September 2020, differential diagnosis includes inflammatory bowel disease, infectious less likely based on chronicity of symptoms -no visible abnormality on colonoscopy 11/27. Biopsies done for possible lymphocytic colitis? 3. Persistent hypokalemia due to vomiting -received IV and oral potassium replacement in ED, magnesium is 1.8 -recheck lytes with 6:00 p.m. blood draw a in a.m. 4. Major depression and anxiety -followed by [facility] -continue home medications 5. Acute on chronic hypertension -treat pain for acute component -continue patient's lisinopril, also takes for anxiety guanfacine and propranolol to be continued Quality VTE Deep Vein Thrombosis/Pulmonary Embolism Present on Admission: No
--- NOTE | 2020-11-27 11:29 | PM.PREOP ---
Pre-operative Note COVID-19 COVID-19 status: Negative Result date/Date tested (Pos, Neg/Pending): 11/26/20 Interval Note History & Physical reviewed/Exam performed by Physician: Yes Changes to H&P: No ASA Class (for procedural sedation): III
--- NOTE | 2020-11-27 12:33 | PM.OP.ENDO ---
Operative Date/Time/Diagnoses Date of procedure: 11/27/20 Time of procedure: 12:33 Pre-op diagnosis: P.o. intolerance, nausea/vomiting, suspected gastric outlet obstruction, suspected colitis based on CT scan Post-op diagnosis: other (Severe endoscopic gastritis without active bleeding or specific ulcers, white plaques in the stomach, possible fungal infection. Corrugated appearance of esophagus, possible eosinophilic esophagitis. No visible abnormalities of the.) Procedure & Clinicians Study performed: Esophagogastroduodenoscopy Cold forceps biopsies of duodenum, stomach, stomach plaques, distal esophagus with standard forceps Sigmoidoscopy Random biopsies of colon with Jumbo forceps Same procedure as scheduled: Yes Indications: Post COVID p.o. intolerance, suspected gastric outlet obstruction, suspected colitis Surgeon: Candace Mackenzie Procedure Notes SCOAP/Timeout: Performed Procedure in detail: The patient was brought to the room and general anesthesia was induced and the patient was intubated with an ET tube by the anesthesiologist. He was placed in left lateral decubitus position with all bony prominences padded. A bite block was positioned in the patient's mouth to protect the lips, teeth, and tongue for the procedure. A time-out was performed and the procedure was begun. The lubricated gastroscope was passed through the bite block and across the tongue and into the esophagus without incident. A tubular view of the esophagus was maintained as the scope was advanced through the esophagus and into the stomach. The scope was advanced through the stomach and to the pylorus. The scope was gently popped through the pylorus and into the duodenal bulb. The scope was flexed and advanced into the second and third portions of the duodenum. There were no signs of gastric outlet or duodenal obstruction. Biopsies were taken in the 2nd portion of the duodenum, and duodenal bulb. The scope was withdrawn into the stomach. There was significant mucosal abnormality with raw surface consistent with severe gastritis. No specific ulcers were seen. There were white plaques covering the mucosa, suspicious for possible fungal infection. Biopsies were taken of the stomach, and the plaques. The scope was retroflexed and the gastric cardia was examined. The hiatus appeared normal, with no gaping around the scope, no evidence of a hiatal hernia. The scope was then straightened, and withdrawn into the esophagus. The Z-line was broken with a few tongues of salmon-colored mucosa coming up into the esophagus, consistent with a Navarro's esophagus. The distal esophagus was biopsied. The scope was then withdrawn through the esophagus with a tubular view. The esophagus appeared corrugated, consistent with a possible eosinophilic esophagitis. The scope was then withdrawn from the patient the attention was turned to the flexible sigmoidoscopy. A rectal exam was performed revealing no abnormalities. The colonoscope was then introduced to the rectum and advanced to the cecum in the usual fashion. The scope was advanced to the descending colon. The colon was fairly clean, until we reached the descending where there were colon so of bright green stool. The scope was then retracted while rotating side to side and examining each mucosal fold. No specific abnormalities were seen, but the colon was biopsied to rule out microscopic colitis. At the conclusion of the procedure retroflexion was performed and small grade 1 internal hemorrhoids without stigmata of bleeding were seen. The scope was then withdrawn from the rectum the procedure was concluded. The patient was awakened from anesthesia and extubated by the anesthesiologist. The patient tolerated the procedure well and was transferred to the PACU in stable condition. Findings: Navarro's esophagus, gastritis and other findings (Stomach plaques) Specimen(s): other (Biopsies of duodenum, stomach, stomach plaques, distal esophagus, random biopsies of colon) Complications: none Impression: No evidence of IBD or significant visible evidence of colitis. Possible microscopic colitis. Significant gastritis, with white plaques. Possible H pylori or fungal infection. Navarro's esophagus. Post-procedure Recommendations: Other recommendation (Follow-up will be based on biopsy findings) Plan for aftercare: Would consider empiric treatment of H pylori, fungus, and continue PPI. Start clear liquid diet as tolerated. Follow up: as needed Disposition: PACU
[2020-11-27] MEDS: PROPRANOLOL 10 MG TABLET PO ×2 (14:55→20:38)
[2020-11-27] MEDS: FLUCONAZOLE 200 MG/100 ML PIGGYBACK 100 MG IV (15:05)
[2020-11-27] MEDS: AMOXICILLIN 250 MG CAPSULE 500 MG PO ×2 (15:05→20:38)
[2020-11-27] MEDS: metroNIDAZOLE 500 MG TABLET PO ×2 (15:05→20:38)
[2020-11-27] MEDS: POTASSIUM CHLORIDE 20 MEQ in SODIUM CHLORIDE 0.9% 250 ML 130 ML IV (17:11)
[2020-11-27] MEDS: GUANFACINE 1 MG TABLET PO (20:38)
[2020-11-28] VITALS (9 sets, daily range): BP systolic 116–147; BP diastolic 65–82; PULSE 47–71; RESP 13–20; TEMP 36.2–36.9; O2SAT 97–100
--- NOTE | 2020-11-28 00:54 | PC.NURSE ---
patient is alert and oriented. Breath sounds CTA with RA sat of 100%. HRR but bradycardic with rate in 50's; telemetry reading was SB. Denies nausea or abdominal pain tonight. BT present and abdomen is soft and non tender; reports having watery stools since enema yesterday morning. Denies dysuria, frequency or urgency with urination. Up independent in room and is steady on feet. Bilateral calf SCD's applied. Fall risk score is moderate.
[2020-11-28] MEDS: SODIUM CHLORIDE 0.9% 1,000 ML 150 ML IV ×2 (03:05→09:39)
[2020-11-28 05:58] LABS: Add Manual Diff / Slide Review NO; Basophils Absolute Auto 0 /uL (0-100); Basophils Percent Auto 0.7 % (0-2); Eosinophils Absolute Auto 0 /uL (0-450); Eosinophils Percent Auto 0.7 % (2-4); Hematocrit 37.5 % (41-53); Hemoglobin 12.9 g/dL (13.5-17.5); Lymphocytes Absolute Auto 2000 /uL (1100-4500); Lymphocytes Percent Auto 32.3 % (25-40); Mean Corpuscular HGB Conc 34.4 % (30-36); Mean Corpuscular Hemoglobin 29.4 PG (26-34); Mean Corpuscular Volume 85.3 fL (80-100); Monocytes Absolute Auto 300 /uL (0-900); Monocytes Percent Auto 5.6 % (3-14); Neutrophils Absolute Auto 3700 /uL (1500-7000); Neutrophils Percent Auto 60.7 % (50-75); Platelet Count 213 X10^3/uL (150-400); Red Cell Distribution Width 12.2 % (11.6-14.8); White Blood Cell Count 6.1 X10^3/uL (4.5-11.0)
[2020-11-28 06:10] LABS: Calcium 8.5 mg/dL (8.4-10.2); Carbon Dioxide 30 mmol/L (22-32); Chloride 105 mmol/L (98-107); Estimated Glomerular Filt Rate > 60.0 mL/min (>60); Glucose 101 mg/dL (70-100); HEMOLYSIS < 15 (0-50); Potassium 4.3 mmol/L (3.4-5.1); Sodium 136 mmol/L (137-145)
[2020-11-28 06:11] LABS: BUN Creatinine Ratio 3.3 (6-22); Blood Urea Nitrogen 2 mg/dL (9-20)
[2020-11-28] MEDS: ONDANSETRON 4 MG/2 ML INJ IV (08:25)
[2020-11-28] MEDS: MORPHINE 2 MG/ML INJ 1 MG IV (08:56)
[2020-11-28] MEDS: lamoTRIgine 100 MG TABLET 300 MG PO (09:40)
[2020-11-28] MEDS: ESCITALOPRAM 10 MG TABLET 20 MG PO (09:41)
[2020-11-28] MEDS: lisinopriL 5 MG TABLET PO (09:41)
[2020-11-28] MEDS: AMOXICILLIN 250 MG CAPSULE 500 MG PO ×3 (09:41→21:33)
[2020-11-28] MEDS: metroNIDAZOLE 500 MG TABLET PO ×2 (09:41→21:34)
[2020-11-28] MEDS: PANTOPRAZOLE 40 MG VIAL IV ×2 (09:42→21:34)
--- NOTE | 2020-11-28 11:47 | PM.PN.1 ---
Subjective Subjective Date Patient Seen: 11/28/20 Interval history: He looks a lot better and he says that he feels a lot better. His situation is also discussed with his mother who is visiting. The severe gastritis explains his months of symptoms. It will be several days before the pathology report returns with a clear direction on treatment but in the meantime he continues on treatment for possible H pylori and possible fungal gastritis. One of those treatments appears to be effective as he is looking noticeably improved. Exam Vital Signs (past 8 hours): - 11/28/20 04:31 11/28/20 07:49 11/28/20 09:00 Temperature 97.2 F L 98.5 F Pulse Rate 47 L 71 Respiratory Rate 16 14 Blood Pressure 121/78 125/75 Pulse Oximetry 98 97 97 11/28/20 09:41 11/28/20 11:20 Temperature 98.5 F Pulse Rate 62 52 L Respiratory Rate 13 Blood Pressure 147/65 H 119/71 Pulse Oximetry 98 Oxygen Delivery Method Room Air Oxygen Flow Rate 0 Narrative Exam Narrative: Alert and oriented x3. No apparent distress. Heart is mildly bradycardic rate and rhythm without murmur. Lungs are clear to auscultation bilaterally. Abdomen is soft, bowel sounds positive, nontender, no organomegaly. Extremities have no ankle edema. Heart rate 47 on last check. Objective Labs Result Diagrams: 11/28/20 05:34 11/28/20 05:34 Labs: Laboratory Results - last 24 hr 11/28/20 11/28/20 05:34 05:34 WBC 6.1 RBC 4.40 L Hgb 12.9 L Hct 37.5 L MCV 85.3 MCH 29.4 MCHC 34.4 RDW 12.2 Plt Count 213 Neut % (Auto) 60.7 Lymph % (Auto) 32.3 [place] % (Auto) 5.6 Eos % (Auto) 0.7 L Baso % (Auto) 0.7 Neut # (Auto) 3700 Lymph # (Auto) 2000 [place] # (Auto) 300 Eos # (Auto) 0 Baso # (Auto) 0 Sodium 136 L Potassium 4.3 Chloride 105 Carbon Dioxide 30 BUN 2 L Creatinine 0.60 L Estimated GFR > 60.0 BUN/Creatinine Ratio 3.3 L Glucose 101 H Calcium 8.5 PFSH Medical History Alcohol use disorder Generalized anxiety disorder (~2006) Hip pain History of panic attacks Low back pain Major depressive disorder, recurrent episode, severe Pneumonia due to 2019 novel coronavirus Family History Father Alcoholism Mother Diabetes mellitus Social History household members: friend(s) Smoking Status: Former smoker second hand exposure: Yes alcohol intake: former substance use type: marijuana (occassionally to help sleep/ingestible) Assessment & Plan Assessment & Plan narrative: This is a 30-year-old male with history of major depression and anxiety, COVID-19 in September 2020, now presenting with persistent GI symptomatology with nausea, intractable vomiting and persistent diarrhea over the past 2 months. 1. Severe Gastritis -On EGD 11/27: Severe endoscopic gastritis without active bleeding or specific ulcers, white plaques in the stomach, possible fungal infection. Corrugated appearance of esophagus, possible eosinophilic esophagitis -symptoms present x2 months, gastric distention noted on CT -leukocytosis WBC 16.1 likely due to vomiting, LFTs and lactate are normal -able to stop IV fluid 11/28 -Protonix 40 mg IV b.i.d. -morphine 1-2 mg IV q.4 hours as needed -Zofran IV as needed -Per surgery consultation and EGD with Dr. Trujillo on 11/27 will continue Protonix, and added amoxicillin/Flagyl for possible H pylori and added IV fluconazole for possible fungal gastritis -11/28 noticeably improved symptomatically. Plan discharge after pathology report clarifies treatment going forward. 2. Colitis -patient with nonbloody diarrhea less than 5 bowel movements a day and 20 lb weight loss in 2 months -CT findings of colon wall thickening present since September 2020, differential diagnosis includes inflammatory bowel disease, infectious less likely based on chronicity of symptoms -no visible abnormality on colonoscopy 11/27. Biopsies done for possible lymphocytic colitis? 3. Persistent hypokalemia due to vomiting -received IV and oral potassium replacement in ED, magnesium is 1.8 4. Major depression and anxiety -followed by Moon BENZ -continue home medications 5. Acute on chronic hypertension -treat pain for acute component -continue patient's lisinopril, also takes for anxiety guanfacine and propranolol to be continued Quality VTE Deep Vein Thrombosis/Pulmonary Embolism Present on Admission: No
[2020-11-28] MEDS: FLUCONAZOLE 200 MG/100 ML PIGGYBACK 100 MG IV (14:34)
[2020-11-28] MEDS: GABAPENTIN 400 MG CAPSULE PO (21:34)
[2020-11-28] MEDS: GUANFACINE 1 MG TABLET PO (21:34)
[2020-11-28] MEDS: MELATONIN 3 MG TABLET 6 MG PO (21:34)
[2020-11-29] VITALS (11 sets, daily range): BP systolic 104–145; BP diastolic 60–99; PULSE 52–73; RESP 16–18; TEMP 36.2–36.8; O2SAT 98–100
--- NOTE | 2020-11-29 00:41 | PC.NURSE ---
patient is alert and oriented. Breath sounds CTA with RA sat of 98%. HRR but bradycardic; telemetry reading was SB w/1st degree AVB. BP elevated at 145/60. Denies nausea or abdominal pain. BT present and is passing flatus. Reports had loose stool on previous shift; reminded of need for stool specimen and patient verbalizes understanding. Denies problems with urination. Is independent with mobility. Wearing bilateral calf SCD's. Denies pain. Fall risk score is moderate but patient steady on feet with no dizziness.
--- NOTE | 2020-11-29 07:26 | PM.PN.1 ---
Subjective Subjective Date Patient Seen: 11/29/20 Interval history: He says that today is his best day so far. He has had no abdominal pain today and no vomiting. He continues on a clear liquid diet which we will cautiously advance tomorrow. He continues a joke from 2 days ago which started with a conversation I had with his mother in the hallway. He starts talking about his . He does not have a . It took me a few seconds to realize that he was continuing the joke that started with my conversation with his mother 2 days ago. Clearly his mentation is no no longer distracted by his GI problems. His heart rate is 55 which I would consider normal at his age. Exam Vital Signs (past 8 hours): - 11/29/20 00:36 11/29/20 05:20 Temperature 97.7 F 97.1 F L Pulse Rate 73 55 L Respiratory Rate 18 16 Blood Pressure 145/60 H 110/78 Pulse Oximetry 98 99 Oxygen Delivery Method Room Air Oxygen Flow Rate 0 Narrative Exam Narrative: He is alert and oriented x3. He is in no apparent distress. Heart is regular rate and rhythm without murmur Lungs are clear to auscultation bilaterally Extremities have no ankle edema Abdomen is soft, nontender, bowel sounds active, no organomegaly. Objective Labs Result Diagrams: 11/28/20 05:34 11/28/20 05:34 [facility] Medical History Alcohol use disorder Generalized anxiety disorder (~2006) Hip pain History of panic attacks Low back pain Major depressive disorder, recurrent episode, severe Pneumonia due to 2019 novel coronavirus Family History Father Alcoholism Mother Diabetes mellitus Social History household members: friend(s) Smoking Status: Former smoker second hand exposure: Yes alcohol intake: former substance use type: marijuana (occassionally to help sleep/ingestible) Assessment & Plan Assessment & Plan narrative: This is a 30-year-old male with history of major depression and anxiety, COVID-19 in September 2020, who presented to the ED if still may with persistent GI symptomatology with nausea, intractable vomiting and persistent diarrhea over the past 2 months. 1. Severe Gastritis -On EGD 11/27: Severe endoscopic gastritis without active bleeding or specific ulcers, white plaques in the stomach, possible fungal infection. Corrugated appearance of esophagus, possible eosinophilic esophagitis -symptoms present x2 months, gastric distention noted on CT -leukocytosis WBC 16.1 likely due to vomiting, LFTs and lactate are normal -IV fluid stopped on 11/28 -Protonix 40 mg IV b.i.d. changed to oral on 11/29 -Zofran IV as needed -Per surgery consultation and EGD with Dr. Trujillo on 11/27 will continue Protonix, and added amoxicillin/Flagyl for possible H pylori and added IV fluconazole for possible fungal gastritis -11/28 noticeably improved symptomatically with symptoms resolved on 11/29. Plan discharge after pathology report clarifies the avenue of treatment going forward. It is not clear which approach is resolving his symptoms. 2. Diarrhea -patient with nonbloody diarrhea less than 5 bowel movements a day and 20 lb weight loss in 2 months -CT findings of colon wall thickening present since September 2020, differential diagnosis includes inflammatory bowel disease, infectious less likely based on chronicity of symptoms -no visible abnormality on colonoscopy 11/27. Biopsies done for possible lymphocytic colitis? 3. Persistent hypokalemia due to vomiting -received IV and oral potassium replacement in ED, magnesium is 1.8 4. Major depression and anxiety -followed by Moon BENZ -continue home medications 5. Acute on chronic hypertension -treat pain for acute component -continue patient's lisinopril, also takes for anxiety guanfacine and propranolol to be continued Quality VTE Deep Vein Thrombosis/Pulmonary Embolism Present on Admission: No
[2020-11-29] MEDS: GABAPENTIN 400 MG CAPSULE PO ×3 (08:25→20:26)
[2020-11-29] MEDS: AMOXICILLIN 250 MG CAPSULE 500 MG PO ×3 (08:25→20:24)
[2020-11-29] MEDS: ESCITALOPRAM 10 MG TABLET 20 MG PO (08:26)
[2020-11-29] MEDS: PANTOPRAZOLE 40 MG VIAL IV (08:26)
[2020-11-29] MEDS: metroNIDAZOLE 500 MG TABLET PO ×2 (08:26→20:25)
[2020-11-29] MEDS: lamoTRIgine 100 MG TABLET 300 MG PO (08:26)
[2020-11-29] MEDS: ENOXAPARIN 40 MG/0.4 ML SYRINGE SUBCUT (08:26)
[2020-11-29] MEDS: SODIUM CHLORIDE 0.9% FLUSH 10 ML IV ×2 (08:32→20:25)
[2020-11-29] MEDS: FLUCONAZOLE 200 MG/100 ML PIGGYBACK 100 MG IV (14:26)
[2020-11-29] MEDS: PROPRANOLOL 10 MG TABLET PO ×2 (14:27→20:25)
--- NOTE | 2020-11-29 14:30 | PC.NURSE ---
Pt received soft, low fiber diet tray for lunch, diet change not until tomorrow am. Pt evaluated, no GI discomfort/issues. Dr. Pedro informed. Continue with clear liquid diet for dinner.
[2020-11-29] MEDS: SODIUM CHLORIDE 0.9% 250 ML 21 ML IV (14:48)
[2020-11-29] MEDS: PANTOPRAZOLE 40 MG TABLET PO (20:25)
[2020-11-29] MEDS: GUANFACINE 1 MG TABLET PO (20:25)
[2020-11-29] MEDS: MELATONIN 3 MG TABLET 6 MG PO (20:26)
--- NOTE | 2020-11-30 00:43 | PC.NURSE ---
Addendum entered by Brittany Dean R.N. 11/30/20 02:21: 0205 Pt c/o moderate abd discomfort, and states he's had 3 episodes of diarrhea tonight--asking if that is expected with the antibiotics being given. I informed him it can be a side effect of both the antibiotic and antifungal medication he's being given. Advised due to moderate discomfort 4/10 and frequency of diarrhea, we could try the 1mg morphine which will help with pain and may also help slow down the diarrhea. Pt agrees and wishes to try. 1mg administered. Original Note: 2305 Received safe hand-off report. The patient is awake and oriented x4. He denies pain, but states he is still having watery diarrhea though feels his bowel movements are starting to get back to normal. He has a right hand PIV that is saline-locked, and he is on room air. Plan: Tomorrow (11/30) he will need a new PIV as his current will be expiring, he will also be moved to a soft, low fiber diet. Pt notified of plan.
[2020-11-30] MEDS: MORPHINE 2 MG/ML INJ 1 MG IV ×2 (02:04→07:59)
[2020-11-30] MEDS: PANTOPRAZOLE 40 MG TABLET PO (06:12)
[2020-11-30 06:16] VITALS: BP 121/73; PULSE 53; RESP 16; O2SAT 97
[2020-11-30 08:00] VITALS: BP 147/73; PULSE 58; RESP 16; TEMP 36.1; O2SAT 98
[2020-11-30] MEDS: SODIUM CHLORIDE 0.9% FLUSH 10 ML IV (08:05)
[2020-11-30] MEDS: metroNIDAZOLE 500 MG TABLET PO (08:05)
[2020-11-30] MEDS: ENOXAPARIN 40 MG/0.4 ML SYRINGE SUBCUT (08:05)
[2020-11-30] MEDS: lisinopriL 5 MG TABLET PO (08:05)
[2020-11-30] MEDS: lamoTRIgine 100 MG TABLET 300 MG PO (08:05)
[2020-11-30] MEDS: AMOXICILLIN 250 MG CAPSULE 500 MG PO ×2 (08:05→15:48)
[2020-11-30] MEDS: ESCITALOPRAM 10 MG TABLET 20 MG PO (08:05)
[2020-11-30] MEDS: PROPRANOLOL 10 MG TABLET PO (08:05)
[2020-11-30] MEDS: GABAPENTIN 400 MG CAPSULE PO (08:12)
--- NOTE | 2020-11-30 10:45 | P.PN_ITS ---
Subjective Subjective Date Patient Seen: 11/30/20 Time Patient Seen: 10:45 Interval history: This is a 30-year-old male with history of major depression and anxiety, COVID-19 in September 2020, who presented to the ED with persistent GI symptomatology with nausea, intractable vomiting and persistent diarrhea over the past 2 months. EGD revealed severe gastritis with white plaques. He was started on protonix, empiric H pylori therapy and fluconazole with improvement. He had abdominal pain recurrence today with advancing diet but this has improved this morning and he was able to tolerate some of his breakfast. Will change to oral pain medications today as needed, continue soft diet while awaiting biopsy results and H pylori testing. Exam Vital Signs (past 8 hours): - 11/30/20 06:16 11/30/20 08:00 Temperature 97.0 F L Pulse Rate 53 L 58 L Respiratory Rate 16 16 Blood Pressure 121/73 147/73 H Pulse Oximetry 97 98 Oxygen Delivery Method Room Air Oxygen Flow Rate 0 Narrative Exam Narrative: He is alert and oriented x3. He is in no apparent distress. Heart is regular rate and rhythm without murmur Lungs are clear to auscultation bilaterally Extremities have no ankle edema, no joint tenderness or effusions. Abdomen is soft, nontender, bowel sounds active, no organomegaly. Objective Labs Result Diagrams: 11/28/20 05:34 11/28/20 05:34 [facility] Medical History Alcohol use disorder Generalized anxiety disorder (~2006) Hip pain History of panic attacks Low back pain Major depressive disorder, recurrent episode, severe Pneumonia due to 2019 novel coronavirus Family History Father Alcoholism Mother Diabetes mellitus Social History household members: friend(s) Smoking Status: Former smoker second hand exposure: Yes alcohol intake: former substance use type: marijuana (occassionally to help sleep/ingestible) Assessment & Plan Assessment & Plan narrative: This is a 30-year-old male with history of major depression and anxiety, COVID-19 in September 2020, who presented to the ED with persistent GI symptomatology with nausea, intractable vomiting and persistent diarrhea over the past 2 months. EGD revealed severe gastritis with white plaques. He was started on protonix, empiric H pylori therapy and fluconazole with improvement. He had abdominal pain recurrence today with advancing diet. Will change to oral pain medications today, continue soft diet while awaiting biopsy results and H pylori testing. 1. Severe Gastritis -On EGD 11/27: Severe endoscopic gastritis without active bleeding or specific ulcers, white plaques in the stomach, possible fungal infection. Corrugated appearance of esophagus, possible eosinophilic esophagitis -symptoms present x2 months, gastric distention noted on CT -leukocytosis WBC 16.1 likely due to vomiting, LFTs and lactate are normal -IV fluid stopped on 11/28 -Protonix 40 mg IV b.i.d. changed to oral on 11/29 -Zofran IV as needed -Per surgery consultation and EGD with Dr. Trujillo on 11/27 will continue Protonix, and added amoxicillin/Flagyl for possible H pylori and added IV fluconazole for possible fungal gastritis, will transition to oral fluconazole today at 200 mg daily, treatment x21 days for now pending biopsy results. -11/28 noticeably improved symptomatically with symptoms resolved on 11/29 but the recurred overnight after advancing diet. 2. Diarrhea -patient with nonbloody diarrhea less than 5 bowel movements a day and 20 lb weight loss in 2 months -CT findings of colon wall thickening present since September 2020, differential diagnosis includes inflammatory bowel disease, infectious less likely based on chronicity of symptoms -no visible abnormality on colonoscopy 11/27. Biopsies done for possible lymphocytic colitis? 3. Persistent hypokalemia due to vomiting -received IV and oral potassium replacement in ED, magnesium is 1.8 4. Major depression and anxiety -followed by Moon BENZ -continue home medications 5. Acute on chronic hypertension -treat pain for acute component -continue patient's lisinopril, also takes for anxiety guanfacine and propranolol to be continued Code: full Dispo: anticipate discharge home in the next 1-2 days. Quality VTE Deep Vein Thrombosis/Pulmonary Embolism Present on Admission: No
[2020-11-30 12:00] VITALS: BP 116/71; PULSE 66; RESP 16; TEMP 36.6; O2SAT 98
[2020-11-30] MEDS: OXYCODONE IR 5 MG TABLET PO (12:06)
[2020-11-30] MEDS: FLUCONAZOLE 100 MG TABLET 200 MG PO (12:14)
--- NOTE | 2020-11-30 12:19 | DIET.PN ---
Dietary Progress Note Assessment: Mr Khan is a 30-year-old male with history of depression and anxiety, COVID-19 in September 2020, who presented to the ED with persistent GI symptoms with nausea, vomiting and persistent diarrhea over the past 2 months. He states he believed his symptoms to be coming from anxiety. EGD revealed severe gastritis. He had some abdominal pain recurrence today with advancing diet to soft, low residue. He reports nearly 20 lb (16%) weight loss in 2 mo. HT: 180.34cm WT: 83.9kg UBW: 90.7kg (2 mo ago) BMI: 26.5 Labs: Na: 134 K: 3.3 Gluc: 126, 109 Phos: 2.0 MNA: 7 (malnutrition) Julian: 20 Nutrition Diagnosis: Chronic illness severe PCM r/t GI complications aeb energy intake <50% x 2 mo, weight loss 16% in 2 mo, N/V/D severe 2 mo. Interventions: 1. Provided education on low residue nutrition therapy until able to tolerate general diet. 2. Provide ONS ensure if PO's <75%. Diet Order: Soft, low residue EER: 2400 bayron (30cal/kg); Pro 100g (1.2) Monitoring/Evaluations:diet advancement/tolerance, associated labs, weight, PO intake
[2020-11-30 13:51] VITALS: O2SAT 98
[2020-11-30 15:40] VITALS: BP 114/76; PULSE 60; RESP 17; TEMP 36.6; O2SAT 98
--- NOTE | 2020-11-30 15:45 | P.DS_ITS ---
History of Present Illness History of Present Illness Date Patient Seen: 11/30/20 Time Patient Seen: 15:45 Chief complaint: Needs Fluids Narrative: Per Dr. Pereira, Patient is a 30-year-old male with history of major depression and anxiety presents back to ED with symptoms of persistent nausea, vomiting and diarrhea. Patient diagnosed with COVID-19 in September 2020. He states that since then he has had persistent symptoms of nausea, frequent vomiting as well as diarrhea. He has had issues with hypokalemia. He was last in the ED on November 24 and had a potassium of 2.2. He was treated in ED and discharged home. Patient states he throws up multiple times a day with vomitus consisting of bilious material. He has not had hematemesis or coffee-ground emesis. He states he typically has 2 diarrhea bowel movements a day that look like bile but he has not noticed any blood in the stool. He has also been experiencing epigastric pain during the past couple of months which he rates as severe. He states he has lost 20 lb since onset of GI symptoms. On September [address] which showed segmental wall thickening of transverse, descending and sigmoid colon. He had repeat CT imaging today which shows diffuse colon wall thickening from hepatic flexure through sigmoid colon consistent with colitis. Also noted his stomach looked distended with an air-fluid level in the gastric lumen and possible mild gastric antral thickening. Patient has been seeing a counselor and psychiatrist for anxiety and depression and feels his anxiety is related to current symptomatology. 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 but has missed multiple days of work due to GI symptoms. He is a nonsmoker. He states he has not had alcohol for the past month. Previous urine tox screens positive for cannabis. He denies family history of inflammatory bowel disease or other GI disease. Discharge Providers Provider Date of admission: 11/26/20 13:38 Discharge Date: 11/30/20 Primary care physician: DEMAR Patricio Consults: 11/26/20 14:31 Consult to Dietitian, Adult Routine Comment: 20 LBS WT LOSS PER PATIENT Reason For Exam: NVD, COLITIS 11/26/20 14:50 Consult to Physician Routine Comment: Consulting Provider: Colin Nassar Reason for consultation: colitis Has provider been notified: Yes Discharge provider: Chava Lilly DO Summary Hospital Course Discharge Diagnosis: Please see hospital course by problem list noted below Hospital Course: This is a 30-year-old male with history of major depression and anxiety, COVID-19 in September 2020, who presented to the ED with persistent GI symptomatology with nausea, intractable vomiting and persistent diarrhea over the past 2 months. EGD revealed severe gastritis with white plaques. He was started on protonix, empiric H pylori therapy and fluconazole with improvement. He had abdominal pain recurrence, But this was mild and over the course of the day his pain was controlled with oral medications. He will be discharged on empiric therapy for H pylori and possible fungal gastritis with fluconazole. Did discuss with surgery prior to discharge and he should follow up with that linoleum layer apprentice preferentially, and PCP for biopsy results and further evaluation as an outpatient. It is not entirely clear what this source of his severe gastritis is from at this time. 1. Severe Gastritis -On EGD 11/27: Severe endoscopic gastritis without active bleeding or specific ulcers, white plaques in the stomach, possible fungal infection. Corrugated appearance of esophagus, possible eosinophilic esophagitis -symptoms present x2 months, gastric distention noted on CT -IV fluid stopped on 11/28 -Protonix 40 mg IV b.i.d. changed to oral on 11/29 -Per surgery consultation and EGD with Dr. Mackenzie on 11/27 will continue Protonix, and added amoxicillin/Flagyl for possible H pylori and added IV fluconazole for possible fungal gastritis. -11/28 noticeably improved symptomatically with symptoms resolved on 11/29 but the recurred overnight after advancing diet but was able to control by 11/30 with only oral medications. Patient to follow up biopsy results and H pylori testing as an outpatient. Prescribed 14 day total course of antibiotics and antifungals as noted above. 2. Diarrhea -patient with nonbloody diarrhea less than 5 bowel movements a day and 20 lb weight loss in 2 months -CT findings of colon wall thickening present since September 2020, differential diagnosis includes inflammatory bowel disease, infectious less likely based on chronicity of symptoms -no visible abnormality on colonoscopy 11/27. Biopsies done for possible lymphocytic colitis? 3. Persistent hypokalemia due to vomiting -received IV and oral potassium replacement in ED and during admission, magnesium 1.8 on admisison. 4. Major depression and anxiety -followed by Moon BENZ -continued home medications 5. Acute on chronic hypertension -treat pain for acute component as noted above, will discharge with a few oxy codone pills for breathrough pain control as an outpatient. -continue patient's lisinopril, also takes for anxiety guanfacine and propranolol to be continued Time Spent with Patient Time spent: Greater than 30 minutes Exam Vital Signs (past 8 hours): - 11/30/20 08:00 11/30/20 12:00 11/30/20 13:51 Temperature 97.0 F L 97.8 F Pulse Rate 58 L 66 Respiratory Rate 16 16 Blood Pressure 147/73 H 116/71 Pulse Oximetry 98 98 98 11/30/20 15:40 Temperature 97.8 F Pulse Rate 60 Respiratory Rate 17 Blood Pressure 114/76 Pulse Oximetry 98 Oxygen Delivery Method Room Air Oxygen Flow Rate 0 Narrative Exam Narrative: GENERAL APPEARANCE: Well developed, well nourished, in no acute distress. SKIN: Inspection of the skin reveals no rashes, ulcerations or petechiae. HEENT: Normocephalic atraumatic, extraocular muscles are intact, oropharynx is clear and mucous membranes are moist, neck is supple without adenopathy NECK: Supple and symmetric. There was no thyroid enlargement, and no tenderness, or masses were felt. CHEST: Normal AP diameter and normal contour without any kyphoscoliosis. LUNGS: Auscultation of the lungs revealed no wheezes, rhonchi, or rales. CARDIOVASCULAR: There was a regular rate and rhythm without any murmurs, gallops , rubs. Peripheral pulses were 2+ and symmetric. ABDOMEN: Soft and nontender with normal bowel sounds. No ascites was noted. MUSCULOSKELETAL: There was no tenderness or effusions noted. Muscle strength and tone were normal. EXTREMITIES: No cyanosis, clubbing or edema. NEUROLOGIC: Alert and oriented x 3. Normal affect. Gait was normal. Strength is +5/5 in the Upper Extremities and Lower Extremities Bilaterally Objective Labs Result Diagrams: 11/28/20 05:34 11/28/20 05:34 [facility] Medical History Alcohol use disorder Generalized anxiety disorder (~2006) Hip pain History of panic attacks Low back pain Major depressive disorder, recurrent episode, severe Pneumonia due to 2019 novel coronavirus Family History Father Alcoholism Mother Diabetes mellitus Social History household members: friend(s) Smoking Status: Former smoker second hand exposure: Yes alcohol intake: former substance use type: marijuana (occassionally to help sleep/ingestible) Discharge Plan Discharge Plan Patient Disposition: Home Provider Discharge Comment: You were admitted to the hospital with abdominal pain, found to have severe gastritis of uncertain etiology on EGD. You are being treat empirically for an infection called H.pylori, and also with an anti fungal medication given the appearance of your EGD. H pylori testing and pathology are currently pending, surgery recommended that you follow-up with her primary care provider for outpatient referral to a linoleum layer apprentice for possible further evaluation. Discharge orders & Medications Prescriptions: New amoxicillin 250 mg Capsule 500 mg PO TID 11 Days Qty: 66 RF: 0 metronidazole 500 mg Tablet 500 mg PO BID 11 Days Qty: 22 RF: 0 pantoprazole 40 mg Tablet,Delayed Release (Dr/Ec) 40 mg PO 0700,2100 14 Days Qty: 28 RF: 0 oxycodone 5 mg Tablet 5 mg PO Q4HR PRN (Reason: Pain, Moderate (4-6)) 7 Days Qty: 15 RF: 0 fluconazole 200 mg tablet 200 mg PO DAILY 11 Days Qty: 22 RF: 0 Continued sucralfate [Carafate] 100 mg/mL suspension 10 ml PO QACHS Qty: 200 RF: 0 promethazine 25 mg suppository 25 mg RI Q4-6H PRN (Reason: nausea and vomiting) Qty: 12 RF: 0 metoclopramide HCl [Reglan] 5 mg tablet 5 mg PO QACHS PRN (Reason: nausea and vomiting) Qty: 14 RF: 0 trazodone 100 mg tablet 100 mg PO BEDTIME PRN (Reason: sleep) Qty: 90 RF: 1 lamotrigine 150 mg tablet 300 mg PO DAILY 30 Days Qty: 60 RF: 1 propranolol 10 mg tablet 10 mg PO TID RF: 0 guanfacine 1 mg tablet 1 mg PO BEDTIME Qty: 30 RF: 0 guanfacine 3 mg tablet extended release 24 hr 3 mg PO QPM Qty: 30 RF: 0 escitalopram oxalate 10 mg tablet 20 mg PO DAILY 30 Days Qty: 60 RF: 1 gabapentin 400 mg capsule 400 mg PO TID PRN (Reason: anxiety sleep) Qty: 180 RF: 0 metoclopramide HCl [Reglan] 10 mg tablet 10 mg PO Q8HR PRN (Reason: nausea and vomiting) Qty: 60 RF: 0 lisinopril 5 mg tablet 5 mg PO DAILY Qty: 60 RF: 0 Follow up/Referrals: Marty Doyle ARNP [Primary Care Provider] - 1 Week (f/u hospitalization, s/p EGD with severe gastritis ? fungal vs H pylori, pathology and H pylori antigen pending) Diet/Activity/Treatments Diet: Diet as Tolerated Diet comment: Low residue / fiber diet Activity: As tolerated Discharge Data Primary Care Provider: Marty Doyle Quality VTE Deep Vein Thrombosis/Pulmonary Embolism Present on Admission: No
--- NOTE | 2020-11-30 15:47 | CM.DPC ---
DCP Cont: Received call from patient requesting a visit this date. He wanted to share how thankful he is for the care and treatment he has received. Reporting he feels better physically and is ready to D/C when medically ready.
--- NOTE | 2020-11-30 16:48 | PC.NURSE ---
Patient discharged home via private car. IV removed, no tele. Patient gathered own belongings. New medications were sent to [facility] and patient was instructed when to take next dose of each. Patient will have a follow-up appointment on monday with DEMAR Patricio. Patient had no concerns or further questions about discharge.
[2020-12-02 16:08] LABS: H. Pylori Antigen Stool Negative (Negative)
== END 2020-11-30 16:50 | disposition home or self-care (01) | DRG 392 ==
LOC: ED 13:37 → AC 13:38
PROVIDERS: Family Medicine; Nurse Practitioner Adult Health; Surgery; Admitting Provider Internal Medicine; Emergency Provider Nurse Practitioner Family; PCP Registered Nurse Diabetes Educator; Referring Provider Nurse Practitioner Family; Visit Provider Internal Medicine
PROC: 0DJ08ZZ Inspection of Upper Intestinal Tract, Via Natural or Artificial Opening Endoscopic (ICD-10-PCS; CPT 43235; 2020-11-27 11:30)
PROC: 0DJD8ZZ Inspection of Lower Intestinal Tract, Via Natural or Artificial Opening Endoscopic (ICD-10-PCS; CPT 45378; 2020-11-27 11:30)
DX: K29.70 Gastritis, unspecified, without bleeding (principal); F33.9 Major depressive disorder, recurrent, unspecified; E87.6 Hypokalemia; F41.9 Anxiety disorder, unspecified; R19.7 Diarrhea, unspecified; K20.0 Eosinophilic esophagitis; I10 Essential (primary) hypertension; Z86.16 Personal history of COVID-19; Z20.822 Contact with and (suspected) exposure to COVID-19; Z87.891 Personal history of nicotine dependence
CPT/HCPCS: 36415; 43239; 45380; 74018; 74177; 80048; 80053; 81003; 83605; 83735; 84100; 84145; 85025; 87045; 87338; 87635; 87899; 93005; 96361; 96365; 96375; 99222; 99284; C9803; C9113; J0330; J1200; J1450; J1650; J2270; J2405; J2704; J2765; J3010; J3475; J3480; Q9967

== ENCOUNTER → 2022-03-25 07:31 | Outpatient (CLI) | payer OTHER, SELFPAY ==
[2020-11-26 14:18] VITALS: BMI 25.7
[2022-03-25 08:24] LABS: Add Manual Diff / Slide Review NO; Basophils Absolute Auto 100 /uL (0-100); Basophils Percent Auto 1.3 % (0-2); Eosinophils Absolute Auto 300 /uL (0-450); Eosinophils Percent Auto 4.5 % (2-4); Hematocrit 42.8 % (41-53); Hemoglobin 14.7 g/dL (13.5-17.5); Lymphocytes Absolute Auto 2200 /uL (1100-4500); Mean Corpuscular HGB Conc 34.3 % (30-36); Mean Corpuscular Hemoglobin 29.6 PG (26-34); Mean Corpuscular Volume 86.4 fL (80-100); Monocytes Absolute Auto 500 /uL (0-900); Monocytes Percent Auto 8.9 % (3-14); Neutrophils Absolute Auto 2800 /uL (1500-7000); Neutrophils Percent Auto 47.3 % (50-75); Platelet Count 221 X10^3/uL (150-400); Red Blood Cell Count 4.95 X10^6/uL (4.5-5.9); Red Cell Distribution Width 12.5 % (11.6-14.8); White Blood Cell Count 5.8 X10^3/uL (4.5-11.0)
[2022-03-25 08:39] LABS: Alanine Aminotransferase 25 IU/L (<50); Albumin 4.3 g/dL (3.5-5.0); Albumin Globulin Ratio 1.8 (1.0-2.8); Alkaline Phosphatase 63 U/L (38-126); Aspartate Aminotransferase 50 IU/L (17-59); BUN Creatinine Ratio 29.7 (6-22); Bilirubin Total 0.3 mg/dL (0.2-1.3); Blood Urea Nitrogen 27 mg/dL (9-20); Calcium 8.4 mg/dL (8.4-10.2); Carbon Dioxide 32 mmol/L (22-32); Chloride 102 mmol/L (98-107); Cholesterol 230 mg/dL (140-199); Estimated Glomerular Filt Rate > 60 mL/min (>60); Globulin 2.4 g/dL (1.7-4.1); Glucose 89 mg/dL (70-100); HDL Cholesterol 50 mg/dL (40-60); HEMOLYSIS < 15 (0-50); LDL Cholesterol Calculated 129 mg/dL (<100); Potassium 4.2 mmol/L (3.4-5.1); Sodium 138 mmol/L (137-145); Total Protein 6.7 g/dL (6.3-8.2); Triglycerides 254 mg/dL (35-150)
== END ==
PROVIDERS: PCP Family Medicine; Referring Provider Family Medicine; Visit Provider Family Medicine
DX: D64.9 Anemia, unspecified (principal); E66.9 Obesity, unspecified
CPT/HCPCS: 36415; 80053; 80061; 85025

== ENCOUNTER → 2023-09-18 08:21 | Outpatient (CLI) | payer OTHER, SELFPAY ==
[2020-11-26 14:18] VITALS: BMI 25.7
[2023-09-18 09:03] LABS: Hemoglobin A1C% w Est Avg Glu 5.2 % (4.0-6.0)
[2023-09-18 09:37] LABS: Alanine Aminotransferase 23 IU/L (<50); Albumin 4.3 g/dL (3.5-5.0); Albumin Globulin Ratio 1.4 (1.0-2.8); Alkaline Phosphatase 64 U/L (38-126); Aspartate Aminotransferase 40 IU/L (17-59); Bilirubin Total 0.6 mg/dL (0.2-1.3); Blood Urea Nitrogen 17 mg/dL (9-20); Calcium 9.1 mg/dL (8.4-10.2); Carbon Dioxide 28 mmol/L (22-32); Chloride 101 mmol/L (98-107); Cholesterol 285 mg/dL (140-199); Estimated Glomerular Filt Rate > 60 mL/min (>60); Glucose 96 mg/dL (70-100); HDL Cholesterol 49 mg/dL (40-60); HEMOLYSIS 22 (0-50); Potassium 4.5 mmol/L (3.4-5.1); Sodium 137 mmol/L (137-145); Total Protein 7.3 g/dL (6.3-8.2); Triglycerides 495 mg/dL (35-150)
== END ==
PROVIDERS: PCP Student in an Organized Health Care Education/Training Program; Referring Provider Student in an Organized Health Care Education/Training Program; Visit Provider Student in an Organized Health Care Education/Training Program
DX: Z00.00 Encounter for general adult medical examination without abnormal findings (principal); Z13.1 Encounter for screening for diabetes mellitus
CPT/HCPCS: 36415; 80053; 80061; 83036